=== PATIENT | female | born 1960 | race Caucasian/White ===

== ENCOUNTER 2022-03-05 09:29 | Outpatient (CLI) | payer MEDICARE, SELFPAY ==
--- NOTE | ~2022-03-05 | PE_ITS ---
EXAMINATION: PET skull to mid thigh DATE: 03/05/2022 11:40 INDICATION: Squamous cell carcinoma of the anus TECHNIQUE: Blood glucose level was 96 mg/dL. 8.421 mCi of 18-fluorodeoxyglucose (18-FDG) was administ ered i.v. Low dose computed tomography (CT) images were acquired from the base of the brain to the pr oximal thighs for attenuation correction and anatomic localization. Positron emission tomography (PET ) images were acquired in the same distribution beginning 77 minutes after injection. Images includin g fused PET/CT images were reconstructed in axial, coronal, and sagittal planes. Automated exposure c ontrol technique was employed. The dose-length product was 404.95mGy-cm. COMPARISON: None FINDINGS: Head/neck: There is symmetric increased activity in the oral cavity, parotid glands, laryngeal muscles and ocu lar muscles without CT correlate, likely physiologic. Atherosclerotic calcific lesions at the bilater al carotid bulbs. Likely benign 8 mm low density right thyroid nodule without FDG uptake. No patholog ically enlarged cervical lymphadenopathy or suspicious foci of increased FDG uptake in the visualized head or neck. Chest: Small bilateral posteriorly layering pleural effusions, right greater than left. No pneumonia or susp icious pulmonary nodules. Heart size is normal. Atherosclerotic coronary artery calcific location. No pericardial effusion. Thoracic aorta is normal in caliber. Bilateral breast implants. No pathologica lly enlarged or FDG avid thoracic lymphadenopathy. Abdomen/pelvis/proximal thighs: Physiologic renal accumulation and excretion of FDG activity in the kidneys, bladder and along portio ns of ureters. Normal degree and heterogenous pattern of increased uptake throughout the liver withou t radiologic correlate or dominant FDG avid lesion. The gallbladder, pancreas, spleen and bilateral a drenal glands are normal. Mild uptake scattered throughout the bowels without radiologic correlate, a lso likely physiologic. Moderately increased FDG uptake at the anus with maximal SUV of 7.6 consisten t with reported history of squamous cell carcinoma of the anus . There is calcified atherosclerosis o f the aorta and many of the other arteries. No other abnormal foci of increased FDG uptake or pathol ogically enlarged lymphadenopathy in the abdomen, pelvis or proximal thighs. Musculoskeletal: There is small amount of likely extravasated activity at the dorsum of the right hand the site of inj ection. Linear likely lymphatic uptake extending proximally along the right forearm and arm. No suspi cious lytic, blastic or FDG avid bone lesions. IMPRESSION: 1. Moderate FDG uptake at the anus consistent with given history of squamous cell carcinoma. No evide nt metastatic disease. 2. Nonspecific small bilateral pleural effusions, right greater than left. Reviewed, dictated and finalized at location B. IMPRESSION: 1. Moderate FDG uptake at the anus consistent with given history of squamous ce ll carcinoma. No evident metastatic disease. 2. Nonspecific small bilateral pleural effusions, right greater than left.
[2022-03-05 10:00] LABS: Glucose Point of Care 96 mg/dl (65-105)
== END 2022-03-05 09:30 | disposition home or self-care (01) ==
LOC: ANHIMG 09:35
PROVIDERS: PCP Internal Medicine; Visit Provider Internal Medicine
DX: C21.0 Malignant neoplasm of anus, unspecified (principal); J90 Pleural effusion, not elsewhere classified
CPT/HCPCS: 78815; A9552

== ENCOUNTER 2022-06-21 18:32 | Inpatient (IN) | payer MEDICARE, MEDICAID, SELFPAY ==
--- NOTE | ~2022-06-21 | XR_ITS ---
EXAMINATION: XR chest 1V portable DATE: 06/21/2022 19:22 INDICATION: Coronary atherosclerosis. Preop. TECHNIQUE: A single frontal view of the chest was obtained on 2 radiographs. COMPARISON: PET CT 03/05/2022 FINDINGS: The chest demonstrates clear lungs without pneumonia, pleural effusion, or pneumothorax. Th e heart size is normal. There is a right subclavian port with tip at superior cavoatrial junction. IMPRESSION: 1. No acute cardiopulmonary disease. Reviewed, dictated and finalized at location A.
--- NOTE | ~2022-06-21 | XR_ITS ---
EXAMINATION: XR surgery orthopedic DATE: 06/24/2022 10:25 INDICATION: Left hip fracture post intertrochanteric nailing TECHNIQUE: 4 fluoroscopic images of the left hip and proximal femur were obtained during procedure pe rformed by Dr. Cabrera. Radiologist was not present for the imaging or procedure. The amount of fluor oscopy time used during this procedure was 1.1 minutes. COMPARISON: 06/21/2022 FINDINGS: Alignment interval open reduction internal fixation of the previously seen intertrochanteri c fracture the proximal left femur with antegrade intramedullary kortney with femoral neck dynamic compre ssion screw and distal interlocking screw fixation. Alignment appears near anatomic with 1-2 cortical widths posterior displacement. No new fractures identified. Mild osteoarthritis at the left hip with mild anterosuperior nonuniform joint space narrowing. Vascular stenting at the left thigh likely dixie ng the proximal to mid left femoral artery. IMPRESSION: 1. Near-anatomic alignment post open reduction internal fixation of an intratrochanteric fracture of the proximal left femur. Reviewed, dictated and finalized at location A. IMPRESSION: 1. Near-anatomic alignment post open reduction internal fixation of an intratro chanteric fracture of the proximal left femur.
--- NOTE | ~2022-06-21 | XR_ITS ---
EXAMINATION: XR hip LT 2V w AP pelvis DATE: 06/21/2022 19:14 INDICATION: Left hip pain. Fall. TECHNIQUE: An anteroposterior view of the pelvis and 2 views of left hip were obtained. COMPARISON: None. FINDINGS: There is a comminuted intertrochanteric fracture of proximal left femur. The main distal fr acture fragment demonstrates 20 degrees varus attenuation, 11 mm posterior displacement, and 20 degre es posterior angulation. There is mild osteoarthritis of the hips. There are vascular stents in the l eft thigh. IMPRESSION: 1. Comminuted intertrochanteric fracture of proximal left femur. 2. Mild osteoarthritis of the hips. Reviewed, dictated and finalized at location A.
--- NOTE | ~2022-06-21 | CT_ITS ---
EXAMINATION: CT brain wo con DATE: 06/21/2022 19:20 INDICATION: Head injury. TECHNIQUE: Computed tomography (CT) of the head was performed without intravenous contrast. The mA wa s adjusted according to patient size. Iterative reconstruction technique was employed. The dose-lengt h product was 605.33 mGy-cm. COMPARISON: None FINDINGS: There is no intracranial hemorrhage, acute infarction, or abnormal intracranial mass lesion . The ventricles are normal in size. The orbits are normal. The paranasal sinuses are clear. The mast oid air cells are normal. IMPRESSION: 1. Normal brain. Reviewed, dictated and finalized at location A. IMPRESSION: 1. Normal brain.
[2022-06-21 18:31] VITALS: BP 176/65; PULSE 67; RESP 16; TEMP 37; O2SAT 100
--- NOTE | 2022-06-21 18:58 | ED.FALL ---
HPI - Fall General Chief Complaint: Fall Stated Complaint: GLF HIP PAIN Time Seen by Provider: 06/21/22 18:41 Source: patient and RN notes reviewed Mode of arrival: ambulatory Limitations: no limitations History of Present Illness HPI Narrative: 61 years old white female lives with her came by private carto the ED because of a fall while walking in her driveway walk. Landed on her left side, complaining of severe pain at the left hip. History of diabetes, hypertension, hyperlipidemia, coronary stents, left lower extremity stent, history of colon cancer last radiation therapy was 5 days ago. Tobacco use, no drinking or using drugs. Patient on aspirin and Plavix. Right chest port MD complaint: fall Fall from: standing Related Data Home Medications Medication Instructions Recorded Confirmed amlodipine 5 mg tablet 5 mg PO DAILY 04/19/22 aspirin 81 mg tablet,delayed 81 mg PO DAILY 04/19/22 release atorvastatin 40 mg tablet 40 mg PO DAILY 04/19/22 clopidogrel 75 mg tablet 75 mg PO DAILY 04/19/22 glimepiride 1 mg tablet 1 mg PO QAM 04/19/22 hydroxychloroquine 200 mg tablet 200 mg PO DAILY 04/19/22 insulin aspart U-100 100 unit/mL 5 unit subcut TID 04/19/22 (3 mL) subcutaneous pen (Novolog Flexpen U-100 Insulin aspart) insulin detemir U-100 100 unit/mL 10 unit subcut QHS 04/19/22 (3 mL) subcutaneous pen (Levemir FlexTouch U-100 Insulin) metoprolol tartrate 25 mg tablet 12.5 mg PO BID 04/19/22 omeprazole 20 mg capsule,delayed 20 mg PO DAILY 04/19/22 release Allergies Allergy/AdvReac Type Severity Reaction Status Date / Time Penicillins Allergy Intermediate hives Verified 04/19/22 09:01 Review of Systems Review of Systems: All systems reviewed & are unremarkable except as noted in HPI and below PMFSH Past Medical History Medical History Anxiety and depression Breast implant capsular contracture CAD (coronary artery disease) Essential hypertension PAD (peripheral artery disease) Rheumatoid arthritis Surgical History Surgical History H/O rotator cuff surgery History of cardiovascular surgery History of cryosurgery Family History Family History Father Old age Mother Alcohol abuse Other Diabetes mellitus Gout Social History Social History Smoking status: Current some day smoker Tobacco type: cigarettes Alcohol intake: never Substance use: never Substance use type: does not use Gender identity (if verbalized by the patient): Female Sexual Orientation (if Verbalized by the Patient): Straight or Heterosexual Exam Narrative: General appearance: Well-developed, well-nourished Skin: Normal color Head: Normocephalic, nontraumatic Eyes: Clear conjunctiva ENT: Oropharynx normal, ears normal, nose normal Neck: Supple, nontender Chest and respiratory: Airway patent, no respiratory distress, no accessory muscle use Heart: Regular rate/rhythm Abdomen: Soft, nontender, no organomegaly, quiet bowel sounds Vascular: Normal peripheral pulses, normal capillary refill. Musculoskeletal: Diffuse tenderness left hip, severe limited range of motion Neurologic: Alert and oriented ?3, [employer] is normal as tested, no gross motor deficit Course Consultations Consultation #1: Dr. Cabrera Date: 06/21/22 Time: 21:02 Vital Signs Vital signs: Vital Signs Temperature 37.0 C 06/21/22 18:31 Pulse Rate 67 06/21/22 18:31 Respiratory Rate 16 06/21/22 18:
--- NOTE | 2022-06-21 18:59 | ECG_ITS ---
Measurements Intervals [place] Rate: 66 P: 73 [place]: 136 QRS: -69 QRSD: 104 T: 252 QT: 416 QTc: 439 Interpretive Statements SINUS RHYTHM ATRIAL PREMATURE COMPLEX INCOMPLETE RIGHT BUNDLE BRANCH BLOCK LEFT ANTERIOR FASCICULAR BLO BORDERLINE ST-T WAVE ABNORMALITY- INF/LAT LEADS BASELINE ARTIFACT- III, AVR, AVL, AVF ABNORMAL ECG Electronically Signed On 06-21-2022 21:17:44 CDT by Nelson Solo D.O.
[2022-06-21] MEDS: ONDANSETRON INJ 4 MG/2 ML VIAL IV PUSH (19:25)
[2022-06-21] MEDS: MORPHINE SULFATE (*CRX) 4 MG/ML INJ IV PUSH ×2 (19:25→22:50)
[2022-06-21 19:54] LABS: Basophils Absolute Auto 0.1 K/mm3 (0.0-0.1); Basophils Percent Auto 0.9 % (0.2-1.2); Eosinophils Absolute Auto 0.1 K/mm3 (0-0.3); Eosinophils Percent Auto 0.9 % (0-4.4); Hematocrit 27.4 % (37.0-47.0); Hemoglobin 9.1 g/dL (12.0-15.0); Immature Granulocyte Absolute 0.04 K/mm3 (0.00-0.031); Immature Granulocyte Percent A 0.6 % (0-0.5); Lymphocytes Absolute Auto 0.41 K/mm3 (0.9-3.2); Lymphocytes Percent Auto 5.9 % (18.3-44.2); Mean Corpuscular HGB Conc 33.2 g/dl (32-36); Mean Corpuscular Hemoglobin 31.8 pg (26-34); Mean Corpuscular Volume 95.8 fl (80-100); Mean Platelet Volume 10.6 fl (7.4-10.4); Monocytes Absolute Auto 1.3 K/mm3 (0.1-0.6); Monocytes Percent Auto 18.8 % (2.6-8.5); Neutrophils Absolute Auto 5.1 K/mm3 (1.3-6.7); Neutrophils Percent Auto 72.9 % (45.5-73.1); Platelet Count Result 316 k/mm3 (150-375); Red Blood Count 2.86 M/mm3 (4.2-5.4); Red Cell Distribution Width 22.2 % (11.5-14.5); White Blood Count 6.9 K/mm3 (4.5-10.0)
[2022-06-21 20:05] LABS: Alanine Aminotransferase 20 U/L (6-35); Albumin Level 2.4 g/dL (3.5-5.1); Alkaline Phosphatase 125 U/L (38-126); Anion Gap 6 mmol/L (8-16); Aspartate Amino Transferase 26 U/L (14-36); Bilirubin,Total 0.2 mg/dL (0.2-1.3); Blood Urea Nitrogen 27 mg/dL (7-17); Calcium 7.4 mg/dL (8.4-10.2); Carbon Dioxide 25 mmol/L (22-30); Chloride 95 mmol/L (98-107); Estimated CRCL calculation 32 ml/min; Estimated Glomerular Filt Rate 38; Glucose 251 mg/dL (65-110); Potassium 2.9 mmol/L (3.4-5.0); Prothrombin Time 12.3 Seconds (11.1-14.7); Sodium 126 mmol/L (137-145)
[2022-06-21 20:06] LABS: Partial Thromboplastin Time 23.5 SECONDS (22.3-36.8)
[2022-06-21 20:26] LABS: Anisocytosis 3+ (NORMAL); Platelet Estimate Adequate (Adequate)
--- NOTE | 2022-06-21 20:27 | PM.IMHP ---
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 She has no known history of osteoporosis. She states she has had minor orthopedic procedures her feet and hands before. Stage II B anal carcinoma. Patient has completed radiation therapy 06/19/[address] Tang. She is undergoing chemotherapy last session [address] Ruiz. Apparently cancer is undetectable now. In the ED: Left hip x-ray shows communicated intratrochanteric fracture of proximal left femur. Patient is on be hypertensive systolic blood pressure 176/65. Hemoglobin 9.1, potassium low at 2.9 given 40 mEq potassium chloride. Her creatinine 1.4 which is her baseline. ER provider talked with Dr. Payne orthopedics for possible surgery tomorrow, make NPO midnight. Patient to be admitted inpatient for left hip fracture. Review of Systems Review of Systems: Constitutional: No Fever, No Chills, No Night Sweats, No Fatigue, No Malaise ENT/Mouth: No Hearing Changes, No Ear Pain, No Nasal Congestion, No Sinus Pain, No Hoarseness, No sore throat, No Rhinorrhea, No Swallowing Difficulty Eyes: No Eye Pain, No Redness, No Vision Changes Cardiovascular: No Chest Pain, No Palpitations, No Dyspnea on Exertion, No Orthopnea, No Claudication, No Edema Respiratory: No Cough, No Sputum, No Wheezing, No Shortness of Breath Gastrointestinal: No Nausea, No Vomiting, No Diarrhea, No Constipation, No Abdominal Pain, No Heartburn, No Hematochezia, No Melena Genitourinary: No Dysuria, No Urinary Frequency, No Hematuria, No Urinary Incontinence, No Urgency Musculoskeletal: Endorses left hip pain. Skin: No Skin Lesions, No Pruritis, No Hair Changes Neuro: No Weakness, No Numbness, No Paresthesias, No Loss of Consciousness, No Syncope, No Dizziness, No Headache Psych: No Anxiety/Panic, No Depression, No Insomnia Heme: No Bruising, No Bleeding Lymph: No Adenopathy Endocrine: No Polyuria, No Polydipsia, No Temperature Intolerance [facility] Past Medical History Medical History Anxiety and depression Breast implant capsular contracture CAD (coronary artery disease) Essential hypertension PAD (peripheral artery disease) Rheumatoid arthritis Surgical History Surgical History H/O rotator cuff surgery History of cardiovascular surgery History of cryosurgery Family History Family History Father Old age Mother Alcohol abuse Other Diabetes mellitus Gout Social History Social History Smoking status: Current some day smoker Tobacco type: cigarettes Alcohol intake: never Substance use: never Substance use type: does not use Gender identity (if verbalized by the patient): Female Sexual Orientation (if Verbalized by the Patient): Straight or Heterosexual Meds Home Medications and Allergies Home Medications Medication Instructions Recorded Confirmed Type amlodipine 5 mg tablet 5 mg PO DAILY 04/19/22 History aspirin 81 mg tablet,delayed 81 mg PO DAILY 04/19/22 History release atorvastatin 40 mg tablet 40 mg PO DAILY 04/19/22 History clopidogrel 75 mg tablet 75 mg PO DAILY 04/19/22 History glimepiride 1 mg tablet 1 mg PO QAM 04/19/22 History hydroxychloroquine 200 mg tablet 200 mg PO DAILY 04/19/22 History insulin aspart U-100 100 unit/mL 5 unit subcut TID 04/19/22 History (3 mL) subcutaneous pen (Novolog Flexpen U-100 Insulin aspart)
[2022-06-21 20:31] LABS: SARS-CoV-2 RNA PCR Negative
[2022-06-21] MEDS: SODIUM CHLORIDE 0.9% IV 1,000 ML 999 ML IV CONT (20:41)
[2022-06-21] MEDS: POTASSIUM CHLORIDE 20 MEQ PACKET (FOR LIQUID) 40 MEQ PO (20:41)
--- NOTE | 2022-06-21 22:15 | ADMGEN ---
This patient, Janice Rodgers, was admitted to Medical Room 255-. Patient/family oriented to hospital policies and general routines including ID bracelet, bed and alarms, visiting hours, pain management, procedures, bathroom and other care routines, personal items, smoking policy, room service/diet, and visiting hours. Information on how to activate the Rapid Response Team has been discussed. Patient/Family are encouraged to report perceived risks to care and to ask questions if they do not understand what they are told or what they should do.
[2022-06-21] MEDS: SODIUM CHLORIDE 0.9% IV 1,000 ML 100 ML IV CONT (22:22)
[2022-06-21] MEDS: POTASSIUM CHLORIDE INJ 40 MEQ in SODIUM CHLORIDE 0.9% IV 500 ML 130 MEQ IVPB (22:22)
[2022-06-21 23:25] VITALS: BP 161/48; PULSE 68; RESP 21; TEMP 36.4; O2SAT 100
[2022-06-21 23:26] VITALS: BMI 17.6
[2022-06-22] VITALS (25 sets, daily range): BP systolic 160–200; BP diastolic 57–88; PULSE 68–81; RESP 12–20; TEMP 36.2–37; O2SAT 97–100
[2022-06-22] MEDS: METOPROLOL TARTRATE 12.5 MG TABLET PO ×3 (00:13→16:54)
[2022-06-22] MEDS: MORPHINE SULFATE (*CRX) 4 MG/ML INJ IV PUSH ×3 (02:23→21:17)
[2022-06-22 05:29] LABS: Basophils Absolute Auto 0.1 K/mm3 (0.0-0.1); Basophils Percent Auto 0.6 % (0.2-1.2); Eosinophils Absolute Auto 0.1 K/mm3 (0-0.3); Hematocrit 25.8 % (37.0-47.0); Hemoglobin 8.6 g/dL (12.0-15.0); Immature Granulocyte Absolute 0.06 K/mm3 (0.00-0.031); Immature Granulocyte Percent A 0.6 % (0-0.5); Lymphocytes Absolute Auto 0.32 K/mm3 (0.9-3.2); Mean Corpuscular HGB Conc 33.3 g/dl (32-36); Mean Corpuscular Volume 95.9 fl (80-100); Mean Platelet Volume 10.5 fl (7.4-10.4); Monocytes Absolute Auto 1.2 K/mm3 (0.1-0.6); Monocytes Percent Auto 11.1 % (2.6-8.5); Neutrophils Absolute Auto 8.9 K/mm3 (1.3-6.7); Neutrophils Percent Auto 83.7 % (45.5-73.1); Platelet Count Result 306 k/mm3 (150-375); Red Blood Count 2.69 M/mm3 (4.2-5.4); Red Cell Distribution Width 22.5 % (11.5-14.5); White Blood Count 10.7 K/mm3 (4.5-10.0)
[2022-06-22 05:37] LABS: Anion Gap 0 mmol/L (8-16); Blood Urea Nitrogen 23 mg/dL (7-17); Calcium 6.7 mg/dL (8.4-10.2); Carbon Dioxide 26 mmol/L (22-30); Chloride 103 mmol/L (98-107); Estimated CRCL calculation 34 ml/min; Estimated Glomerular Filt Rate 46; Glucose 278 mg/dL (65-110); Sodium 129 mmol/L (137-145)
[2022-06-22 05:42] LABS: Hemoglobin A1C 8.8 % (<5.7)
--- NOTE | 2022-06-22 05:58 | WPDANESEPP ---
Anes - Eval Pre Procedure Date/Time: 06/22/22 05:58 Pre Op Diagnosis: left hip fracture, hypokalemia, hyponatremia,anemi Patient Data Age: 61 Gender: F Height: 1.68 m Weight: 49.4 kg Last Vital Signs Temp 36.4 C L 06/21/22 23:25 Pulse 72 06/22/22 04:00 Resp 21 H 06/21/22 23:25 BP 161/48 H 06/21/22 23:25 Pulse Ox 100 06/21/22 23:25 O2 Del Method Room Air 06/21/22 23:25 Allergies Allergy/AdvReac Type Severity Reaction Status Date / Time Penicillins Allergy Intermediate hives Verified 06/21/22 22:26 Home Medications Medication Instructions Recorded Confirmed Type amlodipine 5 mg tablet 5 mg PO DAILY 04/19/22 06/21/22 History aspirin 81 mg tablet,delayed 81 mg PO DAILY 04/19/22 06/21/22 History release atorvastatin 40 mg tablet 40 mg PO DAILY 04/19/22 06/21/22 History clopidogrel 75 mg tablet 75 mg PO DAILY 04/19/22 06/21/22 History hydroxychloroquine 200 mg tablet 200 mg PO BID 04/19/22 06/21/22 History insulin aspart U-100 100 unit/mL 5 unit subcut TID 04/19/22 06/21/22 History (3 mL) subcutaneous pen (Novolog Flexpen U-100 Insulin aspart) insulin detemir U-100 100 unit/mL 10 unit subcut QHS 04/19/22 06/21/22 History (3 mL) subcutaneous pen (Levemir FlexTouch U-100 Insulin) metoprolol tartrate 25 mg tablet 12.5 mg PO BID 04/19/22 06/21/22 History omeprazole 20 mg capsule,delayed 20 mg PO DAILY 04/19/22 06/21/22 History release valacyclovir 500 mg tablet 500 mg PO DAILY #90 tabs 04/26/22 06/21/22 Rx Laboratory Tests 06/21/22 06/21/22 06/21/22 19:29 19:29 19:29 WBC 6.9 K/mm3 K/mm3 (4.5-10.0) RBC 2.86 M/mm3 L M/mm3 (4.2-5.4) Hgb 9.1 g/dL L g/dL (12.0-15.0) Hct 27.4 % L % (37.0-47.0) MCV 95.8 fl fl (80-100) MCH 31.8 pg pg (26-34) MCHC 33.2 g/dl g/dl (32-36) RDW 22.2 % H % (11.5-14.5) Plt Count 316 k/mm3 k/mm3 (150-375) MPV 10.6 fl H fl (7.4-10.4) Immature Gran % (Auto) 0.6 % H % (0-0.5) Neut % (Auto) 72.9 % % (45.5-73.1) Lymph % (Auto) 5.9 % L % (18.3-44.2) [place] % (Auto) 18.8 % H % (2.6-8.5) Eos % (Auto) 0.9 % % (0-4.4) Baso % (Auto) 0.9 % % (0.2-1.2) Lymph # (Auto) 0.41 K/mm3 L K/mm3 (0.9-3.2) [place] # (Auto) 1.3 K/mm3 H K/mm3 (0.1-0.6) Eos # (Auto) 0.1 K/mm3 K/mm3 (0-0.3) Baso # (Auto) 0.1 K/mm3 K/mm3 (0.0-0.1) Abs Immat Gran (auto) 0.04 K/mm3 H K/mm3 (0.00-0.031) Absolute Neuts (auto) 5.1 K/mm3 K/mm3 (1.3-6.7) Absolute Nucleated RBC 0.0 K/mm3 K/mm3 (0.0-0.012) Nucleated RBC % 0.0 % % (0.0-0.2) Platelet Estimate Adequate (Adequate) Anisocytosis 3+ (NORMAL) PT 12.3 Seconds Seconds (11.1-14.7) INR 1.0 APTT 23.5 SECONDS SECONDS (22.3-36.8) Sodium 126 mmol/L L mmol/L (137-145) Potassium 2.9 mmol/L L mmol/L (3.4-5.0) Chloride 95 mmol/L L mmol/L (98-107) Carbon Dioxide 25 mmol/L mmol/L (22-30) Anion Gap 6 mmol/L L mmol/L (8-16) BUN 27 mg/dL H mg/dL (7-17) Creatinine 1.40 mg/dL H mg/dL (0.7-1.0) Estim Creat Clear Calc 32 ml/min ml/min Estimated GFR 38 L (59 - ) Glucose 251 mg/dL H mg/dL (65-110) Hemoglobin A1c Calcium 7.4 mg/dL L mg/dL (8.4-10.2) Total Bilirubin 0.2 mg/dL mg/dL (0.2-1.3) AST 26 U/L U/L (14-36) ALT 20 U/L U/L (6-35) Alkaline Phosphatase 125 U/L U/L (38-126) Total Protein 6.0 g/dL L g/dL (6.3-8.2) Albumin 2.4 g/dL L g/dL (3.5-5.1) SARS-CoV-2 RNA (RT-PCR) 06/21/22 06/22/22 06/22/22 19:30 05:14 05:14 WBC RBC Hgb Hct MCV MCH
[2022-06-22] MEDS: ONDANSETRON INJ 4 MG/2 ML VIAL IV PUSH (06:24)
[2022-06-22 06:33] LABS: Anisocytosis 1+ (NORMAL); Platelet Estimate Adequate (Adequate)
[2022-06-22 07:40] LABS: Glucose Point of Care 428 mg/dl (65-105)
[2022-06-22 08:02] LABS: Glucose Point of Care 429 mg/dl (65-105)
--- NOTE | 2022-06-22 08:20 | PM.IMPN ---
Progress Note: A&P Assessment and Plan (1) Closed fracture of left hip: Code(s): S72.002A - Fracture of unspecified part of neck of left femur, initial encounter for closed fracture Status: Acute Assessment and Plan: -consulted Dr. Payne, orthopedics -Anesthesiology deferring operation to optimize HCT, blood glucose, hyponatremia.? -perioperative antibiotics, DVT prophylaxis as per orthopedics team -pain control:? Tylenol, [place], morphine -bowel regimen: Col[place] (2) Type 1 diabetes mellitus: Code(s): E10.9 - Type 1 diabetes mellitus without complications Status: Acute Assessment and Plan: Patient's glucose 428 this AM. Patient appears quite dry, but is AO. CMP shows AG 0, CO2 26. - ABG showed pH 7.387, pCO2 33.8, HCO3 19.9, AG 4 - UA showed 1+ ketones, 3+ glucose. - Serum beta hydroxybutyrate ordered, pending. - 1L NS IVF bolus w/ 5U sq aspart -> 370. Add'l 1L NS + 5U sq aspart given. - started patient on 20meqK in .45NS/D5W at 100mL/ hr. - K stable at 3.6, continue to monitor. - Repeat labs to continue monitoring above. Diabetic diet, resume home long acting, 12U QHS, MDSS insulin with meals, accuchecks (3) Acute hypokalemia: Code(s): E87.6 - Hypokalemia Status: Acute Assessment and Plan: K currently 3.6. -Repeat BMP this morning after 2L IV Fluids. Treating patient for hyperglycemia and will replenish K as appropriate. (4) Anemia: Code(s): D64.9 - Anemia, unspecified Status: Acute Assessment and Plan: Hgb 8.6/ Hct 25.8. Patient suboptimal for surgical repair of the left hip. Surgery is requesting Hct of 30 prior to OR Transfuse 1 unit PRBCs. Repeat H& H after transfusion. (5) Acute hyponatremia: Code(s): E87.1 - Hypo-osmolality and hyponatremia Status: Acute Assessment and Plan: Sodium 129/134 corrected for hyperglycemia 1L NS fluid bolus this AM w/ repeat BMP afterwards. Will adjust sodium accordingly. (6) CKD (chronic kidney disease): Code(s): N18.9 - Chronic kidney disease, unspecified Status: Acute Assessment and Plan: BUN/Cr 23/1.2 this AM, improved from yesterday. This does appear to be baseline for this patient. 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 Tang. Last chemo [address] Ruiz. Cancer care is [place]. Stable. Will continue to monitor. Plan # other chronic conditions- will resume home meds once reconciled -rheumatoid arthritis: Plaquenil -CAD, PAD, HLD: On aspirin and Plavix, history of 2 coronary stents and 2 left lower extremity stent -essential hypertension: On metoprolol and amlodipine -anxiety/depression: Prozac -CKD stage 3: Cr 1.4, at baseline Subjective Date/time seen: 06/22/22 08:20 Patient was AOx3. Denied chest pain, shortness of breath, fevers, chills, nausea, vomiting. was in the room as well, and provided additional history on this patient which was consistant with the H&P. 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 We all discussed plan going forward to stabilize HCT, Sodium, and glucose prior to OR. Review of Systems Review of Systems: All systems reviewed & are unremarkable except as noted in HPI and below Exam Narrative: GENERAL APPEARANCE: Alert and oriented x 3, in no apparent distress. Patient does appear quite dry. HEENT: PERRL, EOMI. Sclerae anicteric. dry mucous membranes. NECK: Supple. No JVD or obvious carotid bruits. RESPIRATORY: Respirations are nonlabored. Breath sounds are equal and clear bilaterally. No wheezes, Rhonchi, or rales. CARDIOVASCULAR: Regular rate and rhythm with normal S1-S2. No murmurs, gallops, or rubs. GASTROINTESTINAL: Soft, flat, and benign. No mass, tenderness, guardin
--- NOTE | 2022-06-22 08:34 | PM.CNOR ---
Assessment and Plan Assessment and plan (1) Closed fracture of left hip: Qualifiers: Encounter type: initial encounter Qualified Code(s): S72.002A - Fracture of unspecified part of neck of left femur, initial encounter for closed fracture Code(s): S72.002A - Fracture of unspecified part of neck of left femur, initial encounter for closed fracture Status: Acute Assessment and Plan: Left hip intertrochanteric fracture. Patient with diabetes, anemia, hyponatremia and hypokalemia, cancer, renal insufficiency. Discussed operative and non operative treatment options with the patient. Risks, benefits and alternatives discussed in detail. Her questions were answered. She would like to proceed with surgery for the hip. She will need medical optimization prior to proceeding. Plan for left hip trochanteric nail when stable. History of Present Illness HPI Consult date: 06/22/22 Requesting physician: Estrellita Dooley MD Chief complaint: left hip fracture, hypokalemia, hyponatremia,anemi Narrative: 61-year-old woman with multiple medical problems fell at home yesterday onto the left side. Sustained left hip fracture. Admitted through the emergency room. Denies loss of consciousness or head neck injury. Complains of left hip pain. Comfortable while at rest in bed. Denies numbness or tingling. Review of Systems Constitutional: Constitutional: Denies fever(s) Eyes: Eyes: Denies blurry vision ENT: Reports Normal hearing present Cardiovascular: Cardiovascular: Denies chest pain and Denies dyspnea Respiratory: Respiratory: Denies dyspnea and Denies wheezing Gastrointestinal: Gastrointestinal: Denies abdominal pain Genitourinary: Genitourinary: Denies urinary urgency Musculoskeletal: Musculoskeletal: Reports as per HPI and Denies numbness Integumentary/Breasts: Skin/Breast: Denies changing lesions and Denies sores Neurologic: Reports Normal hearing present, Denies behavioral changes, Denies confusion, Denies numbness and Denies convulsions Psychiatric: Psychiatric: Denies behavioral changes, Denies confusion and Denies hallucinations Endocrine: Endocrine: Denies heat intolerance Hematologic/Lymphatic: Hematologic/Lymphatic: Denies easy bleeding Allergic/Immunologic: Allergic/Immunologic: Denies wheezing PMFSH Past Medical History Medical History (Updated 06/22/22 @ 08:25 by Padmaja Smith PA-C) Anxiety and depression Breast implant capsular contracture CAD (coronary artery disease) Essential hypertension GERD (gastroesophageal reflux disease) HLD (hyperlipidemia) Hypertension Old myocardial infarction, greater than 8 weeks stents PAD (peripheral artery disease) Rheumatoid arthritis Surgical History Surgical History H/O rotator cuff surgery History of cardiovascular surgery History of cryosurgery Family History Family History Father Old age Mother Alcohol abuse Other Diabetes mellitus Gout Social History Social History Smoking packs per day: 1 Smoking cigarettes per day: 20.0 Years smoked: 50 Smoking pack-years: 50.00 Smoking status: Current every day smoker Tobacco type: cigarettes Alcohol intake: never Substance use: never Substance use type: does not use Gender identity (if verbalized by the patient): Female Sexual Orientation (if Verbalized by the Patient): Straight or Heterosexual Spiritual care concerns: No Meds Home Medications and Allergies Home Medications Medication Instructions Recorded Confirmed Type amlodipine 5 mg tablet 5 mg PO DAILY 04/19/22 06/21/22 History aspirin 81 mg tablet,delayed 81 mg PO DAILY 04/19/22 06/21/22 History release atorvastatin 40 mg tablet 40 mg PO DAILY 04/19/22 06/21/22 History clopidogrel 75 mg tablet 75 mg PO D
[2022-06-22 08:46] LABS: Sodium Urine Random 14 meq/L
[2022-06-22] MEDS: valACYclovir HCL 500 MG TABLET PO (08:51)
[2022-06-22] MEDS: ATORVASTATIN 40 MG TABLET PO (08:51)
[2022-06-22] MEDS: POTASSIUM CHLORIDE 20 MEQ TABLET.ER 40 MEQ PO ×2 (08:51→16:53)
[2022-06-22] MEDS: PANTOPRAZOLE 40 MG TABLET PO (08:51)
[2022-06-22] MEDS: HYDROXYCHLOROQUINE SULFATE 200 MG TABLET PO ×2 (08:51→16:53)
[2022-06-22] MEDS: DOCUSATE SODIUM 100 MG CAPSULE PO ×2 (08:51→16:53)
[2022-06-22] MEDS: amLODIPine BESYLATE 5 MG TABLET PO (08:51)
[2022-06-22] MEDS: SODIUM CHLORIDE 0.9% IV 1,000 ML 999 ML IV CONT ×2 (08:52→11:59)
[2022-06-22] MEDS: INSULIN ASPART (*BKC) 100 UNITS/ML SUB-Q ×2 (08:52→12:05)
[2022-06-22 10:15] LABS: Glucose Point of Care 370 mg/dl (65-105)
[2022-06-22 10:16] LABS: Anion Gap 4 mmol/L (8-16); Blood Urea Nitrogen 23 mg/dL (7-17); Calcium 6.7 mg/dL (8.4-10.2); Carbon Dioxide 22 mmol/L (22-30); Chloride 103 mmol/L (98-107); Estimated CRCL calculation 37 ml/min; Estimated Glomerular Filt Rate 50; Glucose 406 mg/dL (65-110); Potassium 3.9 mmol/L (3.4-5.0); Sodium 129 mmol/L (137-145)
[2022-06-22 10:20] LABS: Alveolar/Arterial O2 Gradient 10.6 mmHg; Base Excess ABG -4.5 mEq/l (+/-2.0); Fractional Inspired Oxygen 21 %; HCO3 ABG 19.9 mEq/l (22.0-26.0); Oxygen Saturation ABG 97.5 % (95.0-100.0); Oxyhemoglobin 95.8 % THb (90.0-100.0); PCO2 ABG 33.8 mmHg (35.0-45.0); PO2 ABG 98.7 mmHg (80.0-100.0); Total Hemoglobin 9.5 g/dL (12.0-18.0); pH ABG 7.387 (7.350-7.450)
[2022-06-22 10:20] LABS: Beta-Hydroxybutyrate/Acetoacetate 2.22 mmol/L (0.02-0.27)
[2022-06-22 10:21] LABS: Device ROOM AIR; Modified Allen's Test Pass; Site Drawn LEFT RADIAL
[2022-06-22 11:33] LABS: Glucose Point of Care 285 mg/dl (65-105)
[2022-06-22 11:37] LABS: Appearance Urine Clear (Clear); Bilirubin Urine Negative (Negative); Blood Urine 1+ (Negative); Color Urine Yellow (Yellow); Glucose Urine UA 3+ mg/dL (Negative); Ketones Urine 1+ mg/dL (Negative); Leukocyte Esterase Ur Negative LEU/UL (Negative); Nitrate Urine Negative (Negative); Protein Urine 3+ mg/dL (Negative); Urobilinogen Urine 0.2 mg/dL (<2.0); pH Urine 5.5 (5.0-9.0)
[2022-06-22 11:48] LABS: Bacteria Urine Trace /hpf; Mucus Urine Rare /lpf; WBC Clumps Urine Present /HPF; WBC Urine 21-30 /hpf
[2022-06-22 11:53] LABS: Add Urine Microscopic? YES
[2022-06-22] MEDS: HYDROcodone/acetaminophen (*CRX) 5-325 MG TABLET 1 TAB PO ×2 (12:03→16:57)
[2022-06-22 12:05] LABS: Potassium 3.8 mmol/L (3.4-5.0)
[2022-06-22 13:46] LABS: Anion Gap 3 mmol/L (8-16); Blood Urea Nitrogen 22 mg/dL (7-17); Calcium 6.6 mg/dL (8.4-10.2); Carbon Dioxide 21 mmol/L (22-30); Chloride 107 mmol/L (98-107); Estimated CRCL calculation 41 ml/min; Estimated Glomerular Filt Rate 56; Glucose 200 mg/dL (65-110); Potassium 3.6 mmol/L (3.4-5.0); Sodium 131 mmol/L (137-145)
[2022-06-22 16:04] LABS: Alanine Aminotransferase 17 U/L (6-35); Albumin Level 2.3 g/dL (3.5-5.1); Alkaline Phosphatase 135 U/L (38-126); Anion Gap 1 mmol/L (8-16); Aspartate Amino Transferase 23 U/L (14-36); Bilirubin,Total 0.3 mg/dL (0.2-1.3); Blood Urea Nitrogen 20 mg/dL (7-17); Calcium 6.7 mg/dL (8.4-10.2); Carbon Dioxide 25 mmol/L (22-30); Chloride 107 mmol/L (98-107); Estimated CRCL calculation 41 ml/min; Estimated Glomerular Filt Rate 56; Glucose 129 mg/dL (65-110); Potassium 3.6 mmol/L (3.4-5.0); Sodium 133 mmol/L (137-145)
[2022-06-22 16:18] LABS: Fractional Inspired Oxygen 21 %; PO2 VBG 50.1 mmHg (35.0-45.0)
[2022-06-22 16:23] LABS: pH VBG 7.449 (7.300-7.400)
[2022-06-22 16:24] LABS: Device ROOM AIR
[2022-06-22 16:27] LABS: Glucose Point of Care 117 mg/dl (65-105)
[2022-06-22] MEDS: KCL 20 MEQ/0.45% NS 1,000 ML 100 ML IV CONT (16:58)
[2022-06-22] MEDS: PROCHLORPERAZINE MALEATE 5 MG TABLET 10 MG BY MOUTH ×2 (17:04→23:51)
[2022-06-22] MEDS: METOPROLOL TARTRATE 25 MG TABLET PO (21:18)
[2022-06-22] MEDS: INSULIN GLARGINE (*BKC) 100 UNITS/ML 12 UNITS SUB-Q (21:25)
[2022-06-22 22:24] LABS: Glucose Point of Care 236 mg/dl (65-105)
[2022-06-22] MEDS: hydrALAZINE HCL 20 MG/ML VIAL 10 MG IV PUSH (23:58)
[2022-06-23] VITALS (12 sets, daily range): BP systolic 151–190; BP diastolic 66–88; PULSE 70–88; RESP 12–17; TEMP 36.2–37.2; O2SAT 96–100
[2022-06-23] MEDS: ONDANSETRON INJ 4 MG/2 ML VIAL IV PUSH (02:32)
[2022-06-23] MEDS: PROCHLORPERAZINE MALEATE 5 MG TABLET 10 MG BY MOUTH ×4 (05:41→23:54)
--- NOTE | 2022-06-23 06:47 | PM.IMPN ---
Progress Note: A&P Assessment and Plan (1) Closed fracture of left hip: Code(s): S72.002A - Fracture of unspecified part of neck of left femur, initial encounter for closed fracture Status: Acute Assessment and Plan: 06/[address] Payne, orthopedics -Anesthesiology deferring operation to optimize HCT, blood glucose, hyponatremia. -perioperative antibiotics, DVT prophylaxis as per orthopedics team -pain control:? Tylenol, [place], morphine -bowel regimen: Colace 06/23- Patient has been medically stabilized. Hgb/Hct 11.4/34.1; Sodium 136; Glucose 133. Orthopedics will proceed with repair tomorrow. NPO at midnight. (2) Type 1 diabetes mellitus: Code(s): E10.9 - Type 1 diabetes mellitus without complications Status: Acute Assessment and Plan: 06/22? - Glucose>400. Patient appears quite dry, but is AO. CMP shows AG 0, CO2 26. - ABG showed pH 7.387, pCO2 33.8, HCO3 19.9, AG 4. UA showed 1+ ketones, 3+ glucose, Serum beta hydroxybutyrate 2.22 - 1L NS IVF bolus w/ 5U sq aspart -> 370. Add'l 1L NS + 5U sq aspart given. - started patient on 20meqK in .45NS/D5W at 100mL/ hr. - K stable at 3.6, continue to monitor. - Repeat labs to continue monitoring above. - Diabetic diet, resume home long acting 12U QHS, MDSS insulin with meals, accuchecks 06/23 - Patient hypoglycemic this AM, following protocol, improved now 133. - Will split lantus dosing to BID, patient appears to be brittle. - Continue to monitor and manage as above. (3) Acute hypokalemia: Code(s): E87.6 - Hypokalemia Status: Acute Assessment and Plan: 4.0 Continue to monitor with AM labs. (4) Anemia: Code(s): D64.9 - Anemia, unspecified Status: Acute Assessment and Plan: 06/22 Patient suboptimal for surgical repair of the left hip. Surgery is requesting Hct of 30 prior to OR Transfuse 2 unit PRBCs. Repeat H& H after transfusion. 06/23 Hgb/Hct 11.4/34.1 today after 2 units PRBCs. Hemodynamically stable. Will continue to monitor. (5) Acute hyponatremia: Code(s): E87.1 - Hypo-osmolality and hyponatremia Status: Acute Assessment and Plan: Sodium 129/134 corrected for hyperglycemia 1L NS fluid bolus this AM w/ repeat BMP afterwards. Will adjust sodium accordingly. (6) CKD (chronic kidney disease): Code(s): N18.9 - Chronic kidney disease, unspecified Status: Acute Assessment and Plan: BUN/Cr 20/1.2 this AM, improved from yesterday. This does appear to be baseline for this patient. 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 Tang. Last chemo [address] Ruiz. Cancer care is in [place]. Stable. Will continue to monitor. Plan # other chronic conditions -rheumatoid arthritis: Plaquenil -CAD, PAD, HLD: On aspirin and Plavix, history of 2 coronary stents and 2 left lower extremity stent -essential hypertension: On metoprolol and amlodipine -anxiety/depression: Prozac -CKD stage 3: Cr 1.4, at baseline Subjective Date/time seen: 06/23/22 06:47 Patient is feeling much better today. She still has some hip pain. She has no chest pain, shortness of breath, abdominal pain. She has some diarrhea, which is from her radiation therapy, per spouse's report. She does take daily immodium to help prevent this and we will add to her regimen. Patient is also a brittle diabetic. Her assistant professor of religion has her lantus split into two daily doses, which we will also do beginning this evening. Discussed likely surgery tomorrow, patient is in agreement. Review of Systems Review of Systems: All systems reviewed & are unremarkable except as noted in HPI and below Exam Narrative: GENERAL APPEARANCE: Alert and oriented x 3, in no apparent
[2022-06-23 07:55] LABS: Basophils Percent Auto 0.4 % (0.2-1.2); Eosinophils Percent Auto 0.3 % (0-4.4); Hematocrit 34.1 % (37.0-47.0); Hemoglobin 11.4 g/dL (12.0-15.0); Immature Granulocyte Absolute 0.05 K/mm3 (0.00-0.031); Immature Granulocyte Percent A 0.5 % (0-0.5); Lymphocytes Absolute Auto 0.29 K/mm3 (0.9-3.2); Lymphocytes Percent Auto 3.2 % (18.3-44.2); Mean Corpuscular HGB Conc 33.4 g/dl (32-36); Mean Corpuscular Hemoglobin 31.1 pg (26-34); Mean Corpuscular Volume 93.2 fl (80-100); Mean Platelet Volume 9.3 fl (7.4-10.4); Monocytes Absolute Auto 1.3 K/mm3 (0.1-0.6); Monocytes Percent Auto 14.4 % (2.6-8.5); Neutrophils Absolute Auto 7.4 K/mm3 (1.3-6.7); Neutrophils Percent Auto 81.2 % (45.5-73.1); Platelet Count Result 266 k/mm3 (150-375); Red Blood Count 3.66 M/mm3 (4.2-5.4); Red Cell Distribution Width 21.4 % (11.5-14.5); White Blood Count 9.2 K/mm3 (4.5-10.0)
[2022-06-23] MEDS: DEXTROSE 50% 25 GM/50 ML SYRINGE IV PUSH (08:07)
[2022-06-23 08:08] LABS: Alanine Aminotransferase 14 U/L (6-35); Albumin Level 2.2 g/dL (3.5-5.1); Alkaline Phosphatase 128 U/L (38-126); Anion Gap 4 mmol/L (8-16); Aspartate Amino Transferase 29 U/L (14-36); Bilirubin,Total 0.1 mg/dL (0.2-1.3); Blood Urea Nitrogen 18 mg/dL (7-17); Calcium 7.1 mg/dL (8.4-10.2); Carbon Dioxide 22 mmol/L (22-30); Chloride 110 mmol/L (98-107); Estimated CRCL calculation 41 ml/min; Estimated Glomerular Filt Rate 56; Glucose 41 mg/dL (65-110); Sodium 136 mmol/L (137-145)
[2022-06-23 08:26] LABS: Platelet Estimate Adequate (Adequate)
[2022-06-23 08:27] LABS: Poikilocytosis 1+ (NORMAL)
[2022-06-23] MEDS: DOCUSATE SODIUM 100 MG CAPSULE PO (08:29)
[2022-06-23] MEDS: METOPROLOL TARTRATE 25 MG TABLET PO ×2 (08:29→20:15)
[2022-06-23] MEDS: POTASSIUM CHLORIDE 20 MEQ TABLET.ER 40 MEQ PO ×2 (08:29→18:01)
[2022-06-23] MEDS: valACYclovir HCL 500 MG TABLET PO (08:29)
[2022-06-23] MEDS: PANTOPRAZOLE 40 MG TABLET PO (08:29)
[2022-06-23] MEDS: HYDROXYCHLOROQUINE SULFATE 200 MG TABLET PO ×2 (08:29→18:01)
[2022-06-23] MEDS: ATORVASTATIN 40 MG TABLET PO (08:29)
[2022-06-23] MEDS: METOPROLOL TARTRATE 12.5 MG TABLET PO ×2 (08:29→20:15)
[2022-06-23] MEDS: amLODIPine BESYLATE 5 MG TABLET PO (08:29)
[2022-06-23 08:37] LABS: Glucose Point of Care 42 mg/dl (65-105)
[2022-06-23 08:37] LABS: Glucose Point of Care 42 mg/dl (65-105)
[2022-06-23 08:37] LABS: Glucose Point of Care 125 mg/dl (65-105)
[2022-06-23] MEDS: MEGESTROL ACETATE (*CHEMO) 20 MG TABLET PO (08:53)
[2022-06-23 09:08] LABS: Glucose Point of Care 133 mg/dl (65-105)
[2022-06-23 10:06] LABS: Glucose Point of Care 155 mg/dl (65-105)
[2022-06-23 11:53] LABS: Glucose Point of Care 164 mg/dl (65-105)
[2022-06-23] MEDS: LOPERAMIDE HCL 2 MG CAPSULE 4 MG PO ×3 (12:03→23:53)
[2022-06-23] MEDS: HYDROcodone/acetaminophen (*CRX) 5-325 MG TABLET 1 TAB PO ×3 (12:03→23:52)
--- NOTE | 2022-06-23 14:34 | PM.PNORT ---
Progress Note: A&P Assessment and Plan (1) Closed fracture of left hip: Code(s): S72.002A - Fracture of unspecified part of neck of left femur, initial encounter for closed fracture Status: Acute Assessment and Plan: Left hip intertrochanteric fracture. Medically improved for surgery. Discussed nonoperative and operative treatment options with the patient. Risks and benefits of each as well as alternatives were reviewed. All of the patient's questions were answered. The risks of surgery reviewed including but not limited to: Neurovascular damage, wound complication, infection, blood clot, pulmonary embolus, stroke, myocardial infarction, and anesthetic risks up to and including . Continued pain and possible dysfunction were explained. Specific risks of the procedure including later recurrence of deformity. No guarantees were offered. If hardware used, discussed risk of failure/ breakage and possible need for removal. If complications occur, the patient understands the need for further treatment, possible further surgery. Patient verbalizes understanding and wishes to proceed. PLAN: Left hip trochanteric nail. Subjective Subjective Date/Time Seen: 06/23/22 14:34 Principal diagnosis: Left hip intertrochanteric fracture Interval history: left hip fracture. Surgery delayed yesterday due to medically unstable with hyperglycemia, hypokalemia and hyponatremia. Improving today. Patient awake and alert. Pain with motion. Better at rest. Review of Systems Constitutional: Constitutional: Denies fever(s) Eyes: Eyes: Denies blurry vision ENT: Reports Normal hearing present Cardiovascular: Cardiovascular: Denies chest pain and Denies dyspnea Respiratory: Respiratory: Denies dyspnea and Denies wheezing Gastrointestinal: Gastrointestinal: Denies abdominal pain Genitourinary: Genitourinary: Denies urinary urgency Musculoskeletal: Musculoskeletal: Reports as per HPI and Denies numbness Integumentary/Breasts: Skin/Breast: Denies changing lesions and Denies sores Neurologic: Reports Normal hearing present, Denies behavioral changes, Denies confusion, Denies numbness and Denies convulsions Psychiatric: Psychiatric: Denies behavioral changes, Denies confusion and Denies hallucinations Endocrine: Endocrine: Denies heat intolerance Hematologic/Lymphatic: Hematologic/Lymphatic: Denies easy bleeding Allergic/Immunologic: Allergic/Immunologic: Denies wheezing Exam Const: General: No confusion Orientation/consciousness: No confusion HENMT: Head: normal to inspection, normocephalic and atraumatic Eyes: Conjunctivae: conjunctivae normal Sclera: sclerae normal Neck: Neck: supple and nontender Chest: Chest palpation & inspection: normal inspection of the chest Resp: Effort & Inspection: normal respiratory effort and no audible wheezes Cardio: Rate: regular rate Rhythm: regular rhythm : General: Yes deferred Skin: General skin exam: no rashes or lesions noted Neuro: General: No confusion Cranial nerves: Yes Normal hearing present Extrem: General: capillary refill normal Right upper extremity: normal to inspection Left upper extremity: normal to inspection Right lower extremity: normal to inspection, hip/thigh Details: normal to inspection and normal ROM; no tenderness and no swelling, knee Details: no tenderness and no swelling, ankle Details: normal ROM (Able to flex and extend the ankle) and foot Details: vascular exam Details: dorsalis pedis pulse present and normal capillary refill, tendon exam (Moves all toes) and motor-sensory exam Details: light-touch normal Location: in all toes Left lower extremity: hip/thigh Details: tenderness Location: of the hip Location: laterally and anteriorly, swelling Location: of the hip and abnormal ROM Details: pain with passive ROM (Full motion deferred secondary to fracture) Details: with flexion, with internal rotation and with external rotati
[2022-06-23] MEDS: hydrALAZINE HCL 20 MG/ML VIAL 10 MG IV PUSH (14:49)
[2022-06-23 16:45] LABS: Glucose Point of Care 413 mg/dl (65-105)
[2022-06-23 17:04] LABS: Glucose Point of Care 419 mg/dl (65-105)
[2022-06-23] MEDS: SODIUM CHLORIDE 0.9% IV 500 ML IV CONT (18:01)
[2022-06-23] MEDS: INSULIN ASPART (*BKC) 100 UNITS/ML SUB-Q ×2 (18:01→20:20)
[2022-06-23] MEDS: INSULIN GLARGINE (*BKC) 100 UNITS/ML SUB-Q (18:02)
[2022-06-23 18:08] LABS: Basophils Percent Auto 0.4 % (0.2-1.2); Eosinophils Absolute Auto 0.1 K/mm3 (0-0.3); Eosinophils Percent Auto 0.7 % (0-4.4); Hemoglobin 11.2 g/dL (12.0-15.0); Immature Granulocyte Absolute 0.05 K/mm3 (0.00-0.031); Immature Granulocyte Percent A 0.6 % (0-0.5); Lymphocytes Absolute Auto 0.25 K/mm3 (0.9-3.2); Mean Corpuscular HGB Conc 32.9 g/dl (32-36); Mean Corpuscular Hemoglobin 30.8 pg (26-34); Mean Corpuscular Volume 93.4 fl (80-100); Mean Platelet Volume 10.7 fl (7.4-10.4); Monocytes Absolute Auto 1.1 K/mm3 (0.1-0.6); Monocytes Percent Auto 13.7 % (2.6-8.5); Neutrophils Absolute Auto 6.7 K/mm3 (1.3-6.7); Neutrophils Percent Auto 81.6 % (45.5-73.1); Platelet Count Result 272 k/mm3 (150-375); Red Blood Count 3.64 M/mm3 (4.2-5.4); White Blood Count 8.3 K/mm3 (4.5-10.0)
[2022-06-23 18:27] LABS: Anisocytosis 1+ (NORMAL); Ovalocytes 1+ (NORMAL); Platelet Estimate Adequate (Adequate); Poikilocytosis 1+ (NORMAL)
[2022-06-23 18:58] LABS: Glucose Point of Care 414 mg/dl (65-105)
[2022-06-23] MEDS: INSULIN GLARGINE (*BKC) 100 UNITS/ML 6 UNITS SUB-Q (20:21)
[2022-06-23 22:23] LABS: Glucose Point of Care 375 mg/dl (65-105)
[2022-06-24] VITALS (24 sets, daily range): BP systolic 152–195; BP diastolic 68–89; PULSE 58–80; RESP 12–20; TEMP 36.1–37.2; O2SAT 95–100
[2022-06-24 00:43] LABS: Glucose Point of Care 123 mg/dl (65-105)
[2022-06-24 00:46] LABS: Glucose Point of Care 164 mg/dl (65-105)
[2022-06-24] MEDS: PROCHLORPERAZINE MALEATE 5 MG TABLET 10 MG BY MOUTH ×4 (06:33→23:11)
[2022-06-24 06:37] LABS: Alanine Aminotransferase 13 U/L (6-35); Alkaline Phosphatase 117 U/L (38-126); Anion Gap 2 mmol/L (8-16); Aspartate Amino Transferase 22 U/L (14-36); Bilirubin,Total 0.2 mg/dL (0.2-1.3); Blood Urea Nitrogen 17 mg/dL (7-17); Calcium 7.3 mg/dL (8.4-10.2); Carbon Dioxide 23 mmol/L (22-30); Chloride 109 mmol/L (98-107); Estimated CRCL calculation 37 ml/min; Estimated Glomerular Filt Rate 50; Glucose 52 mg/dL (65-110); Potassium 5.2 mmol/L (3.4-5.0); Sodium 134 mmol/L (137-145)
[2022-06-24] MEDS: DEXTROSE 50% 25 GM/50 ML SYRINGE IV PUSH (06:38)
[2022-06-24 07:12] LABS: Glucose Point of Care 111 mg/dl (65-105)
--- NOTE | 2022-06-24 07:12 | PM.IMPN ---
Progress Note: A&P Assessment and Plan (1) Closed fracture of left hip: Code(s): S72.002A - Fracture of unspecified part of neck of left femur, initial encounter for closed fracture <Padmaja Smith PA-C - Last Filed: 06/24/22 12:58> Status: Acute <Padmaja Smith PA-C - Last Filed: 06/24/22 12:58> Assessment and Plan: 06/[address] Payne, orthopedics -Anesthesiology deferring operation to optimize HCT, blood glucose, hyponatremia. -perioperative antibiotics, DVT prophylaxis as per orthopedics team -pain control:? Tylenol, [place], morphine -bowel regimen: Colace 06/23- Patient has been medically stabilized. Hgb/Hct 11.4/34.1; Sodium 136; Glucose 133. Orthopedics will proceed with repair tomorrow. NPO at midnight. 06/24- Plan is for OR today at 0930. Mild hyperkalemia 5.2, sodium 134, glucose stabilized after some AM hypoglycemia. IVF started, will continue to monitor. <Padmaja Smith PA-C - Last Filed: 06/24/22 12:58> (2) Type 1 diabetes mellitus: Code(s): E10.9 - Type 1 diabetes mellitus without complications <Padmaja Smith PA-C - Last Filed: 06/24/22 12:58> Status: Acute <Padmaja Smith PA-C - Last Filed: 06/24/22 12:58> Assessment and Plan: Patient is a brittle diabetic. 06/22? - Glucose>400. Patient appears quite dry, but is AO. CMP shows AG 0, CO2 26. - ABG showed pH 7.387, pCO2 33.8, HCO3 19.9, AG 4. UA showed 1+ ketones, 3+ glucose, Serum beta hydroxybutyrate 2.22 - 1L NS IVF bolus w/ 5U sq aspart -> 370. Add'l 1L NS + 5U sq aspart given. - started patient on 20meqK in .45NS/D5W at 100mL/ hr. - K stable at 3.6, continue to monitor. - Repeat labs to continue monitoring above. - Diabetic diet, resume home long acting 12U QHS, MDSS insulin with meals, accuchecks 06/23 - Patient hypoglycemic this AM, following protocol, improved now 133. - Will split lantus dosing to BID, patient appears to be brittle. - Continue to monitor and manage as above. 06/24. - late afternoon BG spiked to >400, patient was brought down overnight and is now in the low 1teens per nursing and fingersticks. Patient will remain NPO pending OR. Will continue to trend and adjust glucose as necessary. <DUKE YeC - Last Filed: 06/24/22 12:58> (3) Acute hypokalemia: Code(s): E87.6 - Hypokalemia <TRAM Ye-C - Last Filed: 06/24/22 12:58> Status: Acute <TRAM Ye-C - Last Filed: 06/24/22 12:58> Assessment and Plan: Patient jumped to 5.2 this AM, gentle IV fluids, renal function is preserved, will continue to trend. Continue to monitor with AM labs. <[place]KE YeC - Last Filed: 06/24/22 12:58> (4) Anemia: Code(s): D64.9 - Anemia, unspecified <TRAM Ye-C - Last Filed: 06/24/22 12:58> Status: Acute <TRAM Ye-C - Last Filed: 06/24/22 12:58> Assessment and Plan: 06/22 Patient suboptimal for surgical repair of the left hip. Surgery is requesting Hct of 30 prior to OR Transfuse 2 unit PRBCs. Repeat H& H after transfusion. 06/23 Hgb/Hct 11.4/34.1 today after 2 units PRBCs. Hemodynamically stable. Will continue to monitor. <[place]KE YeC - Last Filed: 06/24/22 12:58> (5) Acute hyponatremia: Code(s): E87.1 - Hypo-osmolality and hyponatremia <TRAM Ye-C - Last Filed: 06/24/22 12:58> Status: Acute <TRAM Ye-C - Last Filed: 06/24/22 12:58> Assessment and Plan: sodium 134 this AM Gentle IV fluids as patient is NPO today for OR. Will adjust sodium accordingly. <Padmaja Smith PA-C - Last Filed: 06/24/22 12:58> (6) CKD (chronic kidney disease): Code(s): N18.9 - Chronic kidney disease, unspecified <Padmaja Smith PA-C - Last Filed: 06/24/22 12:58> Status: Acute <Padmaja Smith PA-C - Last Filed: 06/24/22 12:58> Assessment and Plan: BUN/Cr
--- NOTE | 2022-06-24 07:21 | WPDHPUPDATE1 ---
History and Physical Update Update Date/Time: 06/24/22 07:21 History and Physical has been reviewed, including an updated exam of the patient. There are NO changes in the patient's condition. Risks, benefits, and alternatives have been discussed and questions answered. Patient agrees to proceed with procedure.
[2022-06-24 07:50] LABS: Glucose Point of Care 94 mg/dl (65-105)
[2022-06-24] MEDS: METOPROLOL TARTRATE 12.5 MG TABLET PO ×2 (08:15→20:28)
[2022-06-24] MEDS: amLODIPine BESYLATE 5 MG TABLET PO (08:15)
[2022-06-24] MEDS: METOPROLOL TARTRATE 25 MG TABLET PO ×2 (08:16→20:28)
--- NOTE | 2022-06-24 08:21 | PC.NURSE ---
To OR per bed, IV saline locked. Update given to KEVIN Barajas at bedside.
[2022-06-24 08:36] LABS: Glucose Point of Care 94 mg/dl (65-105)
--- NOTE | 2022-06-24 08:44 | WPDANESEPPF ---
Anes - Initial Pre Proc Eval Procedure: Operation Date: 06/22/22 09:30 Proposed Procedures p Left Intertrochanteric Nail - Phuc Cabrera MD Operation Date: 06/24/22 10:00 Proposed Procedures p Left Intertrochanteric Nail - Phuc Cabrera MD Date/Time: 06/24/22 08:44 Surgeon: Padmaja Smith PA-C Pre Op Diagnosis: left hip fracture, hypokalemia, hyponatremia,anemi Patient Data Age: 61 Gender: F Height: 1.68 m Weight: 49.4 kg Last Vital Signs Temp 36.9 C 06/24/22 06:55 Pulse 80 06/24/22 08:16 Resp 16 06/24/22 06:55 BP 160/71 H 06/24/22 06:55 Pulse Ox 98 06/24/22 06:55 O2 Del Method Room Air 06/23/22 08:00 Allergies Allergy/AdvReac Type Severity Reaction Status Date / Time Penicillins Allergy Intermediate hives Verified 06/21/22 22:26 Home Medications Medication Instructions Recorded Confirmed Type amlodipine 5 mg tablet 2.5 mg PO DAILY 04/19/22 06/22/22 History aspirin 81 mg tablet,delayed 81 mg PO DAILY 04/19/22 06/21/22 History release atorvastatin 40 mg tablet 40 mg PO DAILY 04/19/22 06/21/22 History clopidogrel 75 mg tablet 75 mg PO DAILY 04/19/22 06/21/22 History hydroxychloroquine 200 mg tablet 200 mg PO DAILY 04/19/22 06/22/22 History insulin aspart U-100 100 unit/mL 4 unit subcut TID 04/19/22 06/22/22 History (3 mL) subcutaneous pen (Novolog Flexpen U-100 Insulin aspart) insulin detemir U-100 100 unit/mL 6 unit subcut BID 04/19/22 06/22/22 History (3 mL) subcutaneous pen (Levemir FlexTouch U-100 Insulin) metoprolol tartrate 25 mg tablet 12.5 mg PO BID 04/19/22 06/21/22 History omeprazole 20 mg capsule,delayed 20 mg PO DAILY 04/19/22 06/21/22 History release valacyclovir 500 mg tablet 500 mg PO DAILY #90 tabs 04/26/22 06/21/22 Rx glimepiride 1 mg tablet 1 mg PO DAILY 06/22/22 06/22/22 History hydrocodone 5 mg-acetaminophen 325 See Rx Instructions .Route .COMPLEX 06/22/22 06/22/22 History mg tablet megestrol 20 mg tablet 20 mg PO DAILY 06/22/22 06/22/22 History metoprolol tartrate 25 mg tablet 25 mg PO BID 06/22/22 06/22/22 History ondansetron HCl 4 mg tablet See Rx Instructions .Route .COMPLEX 06/22/22 06/22/22 History prochlorperazine maleate 10 mg See Rx Instructions .Route .COMPLEX 06/22/22 06/22/22 History tablet Laboratory Tests 06/23/22 06/23/22 06/23/22 08:56 10:03 11:47 WBC RBC Hgb Hct MCV MCH MCHC RDW Plt Count MPV Immature Gran % (Auto) Neut % (Auto) Lymph % (Auto) [place] % (Auto) Eos % (Auto) Baso % (Auto) Lymph # (Auto) [place] # (Auto) Eos # (Auto) Baso # (Auto) Abs Immat Gran (auto) Absolute Neuts (auto) Absolute Nucleated RBC Nucleated RBC % Platelet Estimate Poikilocytosis Anisocytosis Ovalocytes Sodium Potassium Chloride Carbon Dioxide Anion Gap BUN Creatinine Estim Creat Clear Calc Estimated GFR Glucose POC Capillary Glucose 133 mg/dl H mg/dl 155 mg/dl H mg/dl 164 mg/dl H mg/dl (65-105) (65-105) (65-105) Calcium Total Bilirubin AST ALT Alkaline Phosphatase Total Protein Albumin 06/23/22 06/23/22 06/23/22 16:35 17:02 17:10 WBC 8.3 K/mm3 K/mm3 (4.5-10.0) RBC 3.64 M/mm3 L M/mm3 (4.2-5.4) Hgb 11.2 g/dL L g/dL (12.0-15.0) Hct 34.0 % L % (37.0-47.0) MCV 93.4 fl fl (80-100) MCH 30.8 pg pg (26-34) MCHC 32.9 g/dl g/dl (32-36) RDW 22.0 % H % (11.5-14.5) Plt Cou
[2022-06-24] MEDS: ACETAMINOPHEN 500 MG TABLET 1000 MG PO (08:56)
[2022-06-24] MEDS: TRANEXAMIC ACID 1,000MG/ISO100 1,000 MG/100 ML BAG 200 MG IVPB (08:57)
[2022-06-24] MEDS: KETOROLAC 15 MG/ML VIAL (*BKC) IV PUSH (08:57)
[2022-06-24] MEDS: LACTATED RINGERS 1,000 ML 30 ML IV CONT (09:20)
[2022-06-24] MEDS: ceFAZolin 2 GM/D5W 50 ML 2 GM/50 ML BAG IVPB (09:20)
[2022-06-24] MEDS: BUPIVACAINE/EPINEPHRINE 0.25% 50 ML VIAL 10 ML INFILTRATE (10:05)
[2022-06-24] MEDS: BUPIVACAINE/EPINEPHRINE 0.25% 50 ML VIAL 30 ML INFILTRATE (10:30)
--- NOTE | 2022-06-24 10:43 | W.PM.PROC2 ---
Procedure Note - Detailed Date of Procedure 06/24/22 Pre-op Diagnosis left hip fracture, hypokalemia, hyponatremia,anemi Post-op Diagnosis Same Procedure Performed Left hip trochanteric nail Surgeon Phuc Cabrera MD Foreign Languages Professor 1st music assistant Anesthesia General Indications 61-year-old woman who fell and sustained a left hip intertrochanteric fracture. Underwent medical optimization and stabilization and presents now for operative treatment. Description of Procedure After informed consent the operative extremity was marked in the preoperative holding area. Patient received intravenous antibiotics. The patient was taken to the operative room, placed in the supine position, general anesthesia induced by the anesthesia team, and was placed on a fracture table with longitudinal traction applied to the left leg. The hip fracture was reduced to near anatomic position and verified with image intensification. A time-out was performed confirming the patient, site of the surgery and plan. The left lower extremity was prepped and draped sterilely from the knee to the iliac crest region using a ChloraPrep skin solution. Incision was made just proximal to greater trochanter down to the subcutaneous tissues. Hemostasis controlled with electrocautery. Blunt dissection through the fascia to the tip of the greater trochanter. A starter awl was placed at the tip of the greater trochanter into the medullary canal of the femur. This was checked with image intensification and was in good position. Intramedullary guide kortney positioned. A one-step hand reaming done proximally. Intramedullary canal was reamed with a 12.5 millimeter flexible reamer. Neck angle selected off of preoperative radiographs temp plating. 125 degree 11 X 200mm Nail opened on the back table and assembled. This was then inserted over the guide kortney to the correct depth. Guide kortney removed. Lag screw was then placed with a stab incision over the lateral femur using a 10 blade knife. Blunt dissection down to the lateral side of the bone. Soft tissue protectors placed. Guide pin placed in the center center position of the femoral head and measured. 90 millimeter x 10.5 millimeter lag screw placed to correct depth and verified with image intensification. Traction released from the leg and compression of the fracture performed with the external compression device. Distal locking of the nail performed with the outrigger and soft tissue protector. Stab incision with 15 blade knife and blunt dissection lateral side of the femur. Drill and appropriate size screw placed. Final image intensification confirmed reduction of the fracture and placement of the hardware. Wounds then thoroughly irrigated with antibiotic solution. Fascia repaired with 0 Vicryl interrupted suture. Subcutaneous tissue repaired with 2 O Vicryl interrupted suture and skin repaired with 3-0 Monocryl subcuticular stitches and glue. Sterile dressings applied. Patient then awoke from anesthesia, extubated taken to recovery room stable condition. All sponge, needle and instrument counts correct at the end the case. Implants Arthrex trochanteric nail 11 mm 125 degree 200 mm length, 90 mm x 10.5 mm lag screw, 34 mm x 5 mm distal locking screw. Estimated Blood Loss 100 Urine Output 300 Drains No Packing No Pathology None sent Complications None Condition Stable Disposition PACU
[2022-06-24 10:53] LABS: Glucose Point of Care 72 mg/dl (65-105)
[2022-06-24 12:03] LABS: Glucose Point of Care 82 mg/dl (65-105)
--- NOTE | 2022-06-24 12:14 | PC.NURSE ---
Returned from OR per bed. Report received from Isaías.
[2022-06-24] MEDS: DEXTROSE 5%/0.45% SOD CHL 1,000 ML 80 ML IV CONT (12:59)
[2022-06-24] MEDS: PANTOPRAZOLE 40 MG TABLET PO (13:03)
[2022-06-24] MEDS: valACYclovir HCL 500 MG TABLET PO (13:03)
[2022-06-24] MEDS: ATORVASTATIN 40 MG TABLET PO (13:03)
[2022-06-24] MEDS: MEGESTROL ACETATE (*CHEMO) 20 MG TABLET PO (13:03)
[2022-06-24] MEDS: hydrALAZINE HCL 20 MG/ML VIAL 10 MG IV PUSH (13:43)
--- NOTE | 2022-06-24 13:57 | PCDIET ---
Dietitian screen for BMI:17.6 underweight. Surgery today-Left hip fx. Diet order has been advanced to a clear liquid diet. Ensure clear on all trays for additional 240 kcals and 8 gms protein. Will monitor with diet order progression.
[2022-06-24 16:17] LABS: Basophils Absolute Auto 0.1 K/mm3 (0.0-0.1); Basophils Percent Auto 0.5 % (0.2-1.2); Eosinophils Absolute Auto 0.2 K/mm3 (0-0.3); Eosinophils Percent Auto 1.9 % (0-4.4); Hematocrit 33.4 % (37.0-47.0); Hemoglobin 10.6 g/dL (12.0-15.0); Immature Granulocyte Absolute 0.05 K/mm3 (0.00-0.031); Immature Granulocyte Percent A 0.5 % (0-0.5); Lymphocytes Absolute Auto 0.39 K/mm3 (0.9-3.2); Lymphocytes Percent Auto 4.3 % (18.3-44.2); Mean Corpuscular HGB Conc 31.7 g/dl (32-36); Mean Corpuscular Hemoglobin 31.1 pg (26-34); Mean Corpuscular Volume 97.9 fl (80-100); Mean Platelet Volume 10.6 fl (7.4-10.4); Monocytes Absolute Auto 1.4 K/mm3 (0.1-0.6); Monocytes Percent Auto 15.6 % (2.6-8.5); Neutrophils Absolute Auto 7.1 K/mm3 (1.3-6.7); Neutrophils Percent Auto 77.2 % (45.5-73.1); Platelet Count Result 289 k/mm3 (150-375); Red Blood Count 3.41 M/mm3 (4.2-5.4); Red Cell Distribution Width 22.5 % (11.5-14.5); White Blood Count 9.2 K/mm3 (4.5-10.0)
[2022-06-24] MEDS: DOCUSATE SODIUM 100 MG CAPSULE PO (16:22)
[2022-06-24] MEDS: HYDROXYCHLOROQUINE SULFATE 200 MG TABLET PO (16:23)
[2022-06-24] MEDS: INSULIN ASPART (*BKC) 100 UNITS/ML SUB-Q (16:23)
[2022-06-24 16:55] LABS: Glucose Point of Care 240 mg/dl (65-105)
[2022-06-24] MEDS: LOPERAMIDE HCL 2 MG CAPSULE 4 MG PO (18:12)
[2022-06-24] MEDS: INSULIN GLARGINE (*BKC) 100 UNITS/ML 6 UNITS SUB-Q (20:26)
[2022-06-24 20:40] LABS: Glucose Point of Care 178 mg/dl (65-105)
[2022-06-24] MEDS: HYDROcodone/acetaminophen (*CRX) 5-325 MG TABLET 1 TAB PO (23:11)
[2022-06-25] VITALS (17 sets, daily range): BP systolic 149–169; BP diastolic 62–90; PULSE 66–80; RESP 12–18; TEMP 36.5–37.9; O2SAT 98–100; BMI 17.6
[2022-06-25] MEDS: DEXTROSE 5%/0.45% SOD CHL 1,000 ML 80 ML IV CONT (00:36)
[2022-06-25] MEDS: ACETAMINOPHEN 325 MG TABLET 650 MG PO (01:23)
[2022-06-25 05:30] LABS: Basophils Percent Auto 0.5 % (0.2-1.2); Eosinophils Absolute Auto 0.1 K/mm3 (0-0.3); Eosinophils Percent Auto 1.2 % (0-4.4); Hematocrit 28.8 % (37.0-47.0); Hemoglobin 9.6 g/dL (12.0-15.0); Immature Granulocyte Absolute 0.04 K/mm3 (0.00-0.031); Immature Granulocyte Percent A 0.5 % (0-0.5); Lymphocytes Absolute Auto 0.25 K/mm3 (0.9-3.2); Lymphocytes Percent Auto 3.3 % (18.3-44.2); Mean Corpuscular HGB Conc 33.3 g/dl (32-36); Mean Corpuscular Hemoglobin 31.7 pg (26-34); Mean Platelet Volume 10.4 fl (7.4-10.4); Monocytes Absolute Auto 1.1 K/mm3 (0.1-0.6); Monocytes Percent Auto 14.1 % (2.6-8.5); Neutrophils Percent Auto 80.4 % (45.5-73.1); Platelet Count Result 239 k/mm3 (150-375); Red Blood Count 3.03 M/mm3 (4.2-5.4); Red Cell Distribution Width 21.2 % (11.5-14.5); White Blood Count 7.5 K/mm3 (4.5-10.0)
[2022-06-25 05:40] LABS: Alanine Aminotransferase 12 U/L (6-35); Albumin Level 1.9 g/dL (3.5-5.1); Alkaline Phosphatase 106 U/L (38-126); Anion Gap 4 mmol/L (8-16); Aspartate Amino Transferase 23 U/L (14-36); Bilirubin,Total 0.2 mg/dL (0.2-1.3); Blood Urea Nitrogen 15 mg/dL (7-17); Calcium 7.1 mg/dL (8.4-10.2); Carbon Dioxide 19 mmol/L (22-30); Chloride 107 mmol/L (98-107); Estimated CRCL calculation 37 ml/min; Estimated Glomerular Filt Rate 50; Glucose 101 mg/dL (65-110); Potassium 4.8 mmol/L (3.4-5.0); Sodium 130 mmol/L (137-145)
[2022-06-25] MEDS: PROCHLORPERAZINE MALEATE 5 MG TABLET 10 MG BY MOUTH ×3 (05:58→17:23)
[2022-06-25 06:30] LABS: Band Neutrophils Percent 16 % (0-6); Eosinophils Percent Manual 4 % (0-4); Lymphocytes Absolute Manual 0.37 K/mm3 (1.1-4.5); Metamyelocytes Percent 4 %; Monocytes Absolute Manual 0.15 K/mm3 (0.1-0.90); Monocytes Percent Manual 2 % (3-9); Myelocytes Percent 2 %; Neutrophils Absolute Manual 6.15 K/mm3 (1.7-7.2); Neutrophils Percent Manual 66 % (46-73); Promyelocytes Percent 1 %; Total Cells Counted 100
[2022-06-25 06:48] LABS: Platelet Estimate Adequate (Adequate)
[2022-06-25 07:34] LABS: Glucose Point of Care 102 mg/dl (65-105)
[2022-06-25] MEDS: ATORVASTATIN 40 MG TABLET PO (08:10)
[2022-06-25] MEDS: HYDROXYCHLOROQUINE SULFATE 200 MG TABLET PO ×2 (08:10→17:23)
[2022-06-25] MEDS: ASPIRIN 81 MG ENTERIC TABLET PO (08:10)
[2022-06-25] MEDS: MEGESTROL ACETATE (*CHEMO) 20 MG TABLET PO (08:10)
[2022-06-25] MEDS: CLOPIDOGREL BISULFATE 75 MG TABLET PO (08:10)
[2022-06-25] MEDS: METOPROLOL TARTRATE 12.5 MG TABLET PO ×2 (08:10→21:02)
[2022-06-25] MEDS: SODIUM CHLORIDE 0.9% IV 1,000 ML 75 ML IV CONT ×2 (08:10→21:03)
[2022-06-25] MEDS: amLODIPine BESYLATE 5 MG TABLET PO (08:10)
[2022-06-25] MEDS: METOPROLOL TARTRATE 25 MG TABLET PO ×2 (08:11→21:02)
[2022-06-25] MEDS: INSULIN GLARGINE (*BKC) 100 UNITS/ML 6 UNITS SUB-Q ×2 (08:11→21:00)
[2022-06-25] MEDS: valACYclovir HCL 500 MG TABLET PO (08:11)
[2022-06-25] MEDS: PANTOPRAZOLE 40 MG TABLET PO (08:11)
[2022-06-25] MEDS: SODIUM CHLORIDE 1 GM TABLET PO ×2 (08:27→17:22)
--- NOTE | 2022-06-25 09:55 | PCOTNOTE ---
Attempted to work with patient at end of ANIMAL CONTROL SPECIALIST's session for OT, patient refused. Patient reported I just need an hour of sleep. and was tearful. Will attempt to see patient later to continue OT plan of care.
[2022-06-25 11:36] LABS: Glucose Point of Care 124 mg/dl (65-105)
--- NOTE | 2022-06-25 13:25 | WPDANESPN ---
Anes - Prog Note Post-Op Date/Time: 06/25/22 13:25 Vital Signs: Last Vital Signs Temp 37.1 C 06/25/22 10:05 Pulse 80 06/25/22 12:00 Resp 14 06/25/22 10:05 BP 158/76 H 06/25/22 10:05 Pulse Ox 100 06/25/22 10:05 O2 Del Method Room Air 06/25/22 08:15 O2 Flow Rate 10 06/24/22 10:45 Pain Score (VAS): patient is confused, doesn't remember having procedure but feels ok I/O: Intake & Output 06/24/22 06/25/22 06/25/22 23:59 07:59 15:59 Intake Total 770 1100 360 Output Total 300 Balance 770 800 360 Laboratory Tests 06/25/22 05:07 06/25/22 05:07 06/24/22 06/24/22 06/24/22 05:26 16:22 20:25 WBC 9.2 RBC 3.41 L Hgb 10.6 L Hct 33.4 L MCV 97.9 MCH 31.1 MCHC 31.7 L RDW 22.5 H Plt Count 289 MPV 10.6 H Immature Gran % (Auto) 0.5 Neut % (Auto) 77.2 H Lymph % (Auto) 4.3 L [place] % (Auto) 15.6 H Eos % (Auto) 1.9 Baso % (Auto) 0.5 Lymph # (Auto) 0.39 L [place] # (Auto) 1.4 H Eos # (Auto) 0.2 Baso # (Auto) 0.1 Abs Immat Gran (auto) 0.05 H Absolute Neuts (auto) 7.1 H Absolute Nucleated RBC 0.0 Total Counted Neutrophils % (Manual) Band Neutrophils % Lymphocytes % (Manual) Monocytes % (Manual) Eosinophils % (Manual) Metamyelocytes % Myelocytes % Promyelocytes % (Man) Nucleated RBC % 0.0 Abs Neuts (Manual) Abs Lymphs (Manual) Abs Monocytes (Manual) Absolute Eos (Manual) Platelet Estimate Sodium Potassium Chloride Carbon Dioxide Anion Gap BUN Creatinine Estim Creat Clear Calc Estimated GFR Glucose POC Capillary Glucose 240 H 178 H Calcium Total Bilirubin AST ALT Alkaline Phosphatase Total Protein Albumin 06/25/22 06/25/22 06/25/22 05:07 05:07 07:28 WBC 7.5 RBC 3.03 L Hgb 9.6 L Hct 28.8 L MCV 95.0 MCH 31.7 MCHC 33.3 RDW 21.2 H Plt Count 239 MPV 10.4 Immature Gran % (Auto) 0.5 Neut % (Auto) 80.4 H Lymph % (Auto) 3.3 L Trinity % (Auto) 14.1 H Eos % (Auto) 1.2 Baso % (Auto) 0.5 Lymph # (Auto) 0.25 L [place] # (Auto) 1.1 H Eos # (Auto) 0.1 Baso # (Auto) 0.0 Abs Immat Gran (auto) 0.04 H Absolute Neuts (auto) 6.0 Absolute Nucleated RBC 0.0 Total Counted 100 Neutrophils % (Manual) 66 Band Neutrophils % 16 H Lymphocytes % (Manual) 5.0 L Monocytes % (Manual) 2 L Eosinophils % (Manual) 4 Metamyelocytes % 4 Myelocytes % 2 Promyelocytes % (Man) 1 Nucleated RBC % 0.0 Abs Neuts (Manual) 6.15 Abs Lymphs (Manual) 0.37 L Abs Monocytes (Manual) 0.15 Absolute Eos (Manual) 0.30 Platelet Estimate Adequate Sodium 130 L Potassium 4.8 Chloride 107 Carbon Dioxide 19 L Anion Gap 4 L BUN 15 Creatinine 1.10 H Estim Creat Clear Calc 37 Estimated GFR 50 L Glucose 101 POC Capillary Glucose 102 Calcium 7.1 L Total Bilirubin 0.2 AST 23 ALT 12 Alkaline Phosphatase 106 Total Protein 5.0 L Albumin 1.9 L 06/25/22 11:28 WBC RBC Hgb Hct MCV MCH MCHC RDW Plt Count MPV Immature Gran % (Auto) Neut % (Auto) Lymph % (Auto) Trinity % (Auto) Eos % (Auto) Baso % (Auto) Lymph # (Auto) Trinity # (Auto) Eos # (Auto) Baso # (Auto) Abs Immat Gran (auto) Absolute Neuts (auto) Absolute Nucleated RBC Total Counted Neutrophils % (Manual) Band Neutrophils % Lymphocytes % (Manual) Monocytes % (Manual) Eosinophils % (Manual) Metamyelocytes % Myelocytes % Promyelocytes % (Man) Nucleated RBC % Abs Neuts (Manual) Abs Lymphs (Manual) Abs Monocytes (Manual) Absolute Eos (Manual) Platelet Estimate Sodium Potassium Chloride Carbon Dioxide Anion Gap BUN Creatinine Estim Creat Clear Calc Estimated GFR Glucose POC Capillary Glucose 124 H Calcium Total Bilirubin AST ALT Alkaline Phosphatase Tot
[2022-06-25] MEDS: LOPERAMIDE HCL 2 MG CAPSULE 4 MG PO (13:47)
--- NOTE | 2022-06-25 15:10 | PM.IMPN ---
Progress Note: A&P Assessment and Plan (1) Closed fracture of left hip: Code(s): S72.002A - Fracture of unspecified part of neck of left femur, initial encounter for closed fracture <Padmaja Smith PA-C - Last Filed: 06/25/22 15:21> Status: Acute <Padmaja Smith PA-C - Last Filed: 06/25/22 15:21> Assessment and Plan: 06/[address] Payne, orthopedics -Anesthesiology deferring operation to optimize HCT, blood glucose, hyponatremia. -perioperative antibiotics, DVT prophylaxis as per orthopedics team -pain control:? Tylenol, [place], morphine -bowel regimen: Colace 06/23- Patient has been medically stabilized. Hgb/Hct 11.4/34.1; Sodium 136; Glucose 133. Orthopedics will proceed with repair tomorrow. NPO at midnight. 06/24- Plan is for OR today at 0930. Mild hyperkalemia 5.2, sodium 134, glucose stabilized after some AM hypoglycemia. IVF started, will continue to monitor. 06/25- POD 1- Patient doing well with PT/OT. Pain control and DVT prophylaxis per orthopedics. Discussion of SNF vs HH is ongoing as patient is evaluated. Patient has been unable to void since removing the xie catheter. She is retaining urine. Xie was replaced. She may require urology consultation. Voiding trial tomorrow or next day pending ortho clearance for D/C. Encouraged Q2Hr incentive spirometry with patient and also discussed with nursing staff. <Padmaja Smith PA-C - Last Filed: 06/25/22 15:21> (2) Type 1 diabetes mellitus: Code(s): E10.9 - Type 1 diabetes mellitus without complications <Padmaja Smith PA-C - Last Filed: 06/25/22 15:21> Status: Acute <Padmaja Smith PA-C - Last Filed: 06/25/22 15:21> Assessment and Plan: Patient is a brittle diabetic. 06/22? - Glucose>400. Patient appears quite dry, but is AO. CMP shows AG 0, CO2 26. - ABG showed pH 7.387, pCO2 33.8, HCO3 19.9, AG 4. UA showed 1+ ketones, 3+ glucose, Serum beta hydroxybutyrate 2.22 - 1L NS IVF bolus w/ 5U sq aspart -> 370. Add'l 1L NS + 5U sq aspart given. - started patient on 20meqK in .45NS/D5W at 100mL/ hr. - K stable at 3.6, continue to monitor. - Repeat labs to continue monitoring above. - Diabetic diet, resume home long acting 12U QHS, MDSS insulin with meals, accuchecks 06/23 - Patient hypoglycemic this AM, following protocol, improved now 133. - Will split lantus dosing to BID, patient appears to be brittle. - Continue to monitor and manage as above. 06/24. - late afternoon BG spiked to >400, patient was brought down overnight and is now in the low 1teens per nursing and fingersticks. Patient will remain NPO pending OR. Will continue to trend and adjust glucose as necessary. 06/25 - Blood sugars have been stable today. Continue current regimen as above, and continue to monitor. <Padmaja Smith PA-C - Last Filed: 06/25/22 15:21> (3) Acute hypokalemia: Code(s): E87.6 - Hypokalemia <Padmaja Smith PA-C - Last Filed: 06/25/22 15:21> Status: Acute <Padmaja Smith PA-C - Last Filed: 06/25/22 15:21> Assessment and Plan: Patient jumped to 5.2 this AM, gentle IV fluids, renal function is preserved, will continue to trend. Continue to monitor with AM labs. 06/25- 4.8 today, normalized. Continue to monitor with AM labs. <Padmaja Smith PA-C - Last Filed: 06/25/22 15:21> (4) Anemia: Code(s): D64.9 - Anemia, unspecified <Padmaja Smith PA-C - Last Filed: 06/25/22 15:21> Status: Acute <Padmaja Smith PA-C - Last Filed: 06/25/22 15:21> Assessment and Plan: 06/22 Patient suboptimal for surgical repair of the left hip. Surgery is requesting Hct of 30 prior to OR Transfuse 2 unit PRBCs. Repeat H& H after transfusion. 06/23 Hgb/Hct 11.4/34.1 today after 2 units PRBCs. Hemodynamically stable. Will continue to monitor. 06/25- Hgb/HCT down today, likely postoperative in nature. Patient is asymptomatic, VSS, will continu
[2022-06-25 16:56] LABS: Glucose Point of Care 140 mg/dl (65-105)
[2022-06-25] MEDS: NICOTINE (*PBKC) 14 MG PATCH 1 PATCH TRANSDERM (17:23)
--- NOTE | 2022-06-25 17:30 | PM.PNORT ---
Progress Note: A&P Assessment and Plan (1) Closed fracture of left hip: Qualifiers: Encounter type: subsequent encounter Fracture healing: with routine healing Qualified Code(s): S72.002D - Fracture of unspecified part of neck of left femur, subsequent encounter for closed fracture with routine healing Code(s): S72.002A - Fracture of unspecified part of neck of left femur, initial encounter for closed fracture Status: Acute Assessment and Plan: Postoperative day 1 left hip trochanteric nail. PT/OT with weight-bearing as tolerated. Pain relatively well controlled. DVT prophylaxis with aspirin/ Plavix. Patient would like to be able to return home with home health if able. We will see how therapy goes tomorrow. Subjective Subjective Date/Time Seen: 06/25/22 17:30 Post Op day: 1 Principal diagnosis: Left hip intertrochanteric fracture Interval history: patient awake. Sitting up in bed. Pain earlier but better control now. Operative findings and treatment reviewed. Exam Const: General: comfortable; No acute distress Resp: Effort & Inspection: normal respiratory effort and no audible wheezes Extrem: Right lower extremity: lower leg ( Negative Homans sign), ankle Details: normal ROM ( dorsiflexion and plantar flexion intact) and foot Details: vascular exam Details: dorsalis pedis pulse present and normal capillary refill, tendon exam Details: active flexion normal and active extension normal and motor-sensory exam Details: light-touch normal Location: in all toes; no edema Left lower extremity: normal to inspection, ankle Details: normal ROM and foot Details: vascular exam Details: dorsalis pedis pulse present and normal capillary refill and motor-sensory exam light-touch normal in all toes; no edema Other: Left hip dressing clean dry and intact. Muscle soft. Objective Data Vital Signs Vital Signs: Vital Signs - 24 hr 06/24/22 18:47 06/24/22 19:47 06/24/22 20:28 Temperature 97.4 F L 98.9 F Pulse Rate 76 77 79 Respiratory Rate 12 20 Blood Pressure 180/71 H 162/76 H Pulse Oximetry 100 99 Oxygen Delivery 06/24/22 20:28 06/24/22 21:51 06/24/22 20:00 Temperature 98.5 F Pulse Rate 79 70 Respiratory Rate 16 Blood Pressure 152/68 H Pulse Oximetry 98 Oxygen Delivery Room Air 06/24/22 20:00 06/25/22 00:00 06/25/22 01:20 Temperature 100.2 F H Pulse Rate 76 72 71 Respiratory Rate 12 Blood Pressure 169/70 H Pulse Oximetry 99 Oxygen Delivery 06/25/22 01:23 06/25/22 04:00 06/25/22 05:29 Temperature 100.2 F H 97.7 F Pulse Rate 66 69 Respiratory Rate 12 Blood Pressure 159/62 H Pulse Oximetry 98 Oxygen Delivery 06/25/22 02:23 06/25/22 08:10 06/25/22 08:11 Temperature 97.7 F Pulse Rate 80 80 Respiratory Rate Blood Pressure Pulse Oximetry Oxygen Delivery 06/25/22 08:17 06/25/22 08:00 06/25/22 08:15 Temperature Pulse Rate 75 Respiratory Rate Blood Pressure 164/90 H Pulse Oximetry Oxygen Delivery Room Air 06/25/22 10:05 06/25/22 12:00 06/25/22 13:29 Temperature 98.7 F 97.9 F Pulse Rate 72 80 75 Respiratory Rate 14 14 Blood Pressure 158/76 H 159/70 H Pulse Oximetry 100 100 Oxygen Delivery 06/25/22 16:00 Temperature Pulse Rate 72 Respiratory Rate Blood Pressure Pulse Oximetry Oxygen Delivery Intake/Output Intake/Output: Intake & Output 06/22/22 06/23/22 06/24/22 06/25/22 23:59 23:59 23:59 23:59 Intake Total 1450 1805 1460 1460 Output Total 1200 700 800 300 Balance 250 0850 573 7163 Meds/Results Medications: Active Medications Generic Name Dose Route Start Last Admin Trade Name Kvng PRN Reason Stop Dose Admin Acetaminophen 650 mg 06/21/22 20:39 06/25/22 01:23 Acetaminophen 325 Mg Tablet PO 650 mg Q4H PRN Administration Mild Pain (1-3) or Fever Hydrocodone Bitart/Acetaminophen 1 tab 06/21/22 20:39 06/24/22 23:11 H
[2022-06-25 18:40] LABS: Basophils Percent Auto 0.3 % (0.2-1.2); Eosinophils Absolute Auto 0.1 K/mm3 (0-0.3); Eosinophils Percent Auto 0.6 % (0-4.4); Hematocrit 32.6 % (37.0-47.0); Hemoglobin 10.9 g/dL (12.0-15.0); Immature Granulocyte Absolute 0.05 K/mm3 (0.00-0.031); Immature Granulocyte Percent A 0.6 % (0-0.5); Lymphocytes Absolute Auto 0.32 K/mm3 (0.9-3.2); Lymphocytes Percent Auto 3.6 % (18.3-44.2); Mean Corpuscular HGB Conc 33.4 g/dl (32-36); Mean Corpuscular Hemoglobin 31.7 pg (26-34); Mean Corpuscular Volume 94.8 fl (80-100); Mean Platelet Volume 10.5 fl (7.4-10.4); Monocytes Percent Auto 11.4 % (2.6-8.5); Neutrophils Absolute Auto 7.4 K/mm3 (1.3-6.7); Neutrophils Percent Auto 83.5 % (45.5-73.1); Platelet Count Result 265 k/mm3 (150-375); Red Blood Count 3.44 M/mm3 (4.2-5.4); Red Cell Distribution Width 21.3 % (11.5-14.5); White Blood Count 8.9 K/mm3 (4.5-10.0)
[2022-06-25 21:17] LABS: Glucose Point of Care 135 mg/dl (65-105)
[2022-06-26] VITALS (8 sets, daily range): BP systolic 150–195; BP diastolic 60–75; PULSE 69–76; RESP 17–18; TEMP 36.6–36.9; O2SAT 97–100
[2022-06-26] MEDS: PROCHLORPERAZINE MALEATE 5 MG TABLET 10 MG BY MOUTH ×3 (00:01→12:48)
[2022-06-26] MEDS: LOPERAMIDE HCL 2 MG CAPSULE 4 MG PO ×3 (00:01→12:48)
[2022-06-26 05:26] LABS: Alanine Aminotransferase 7 U/L (6-35); Alkaline Phosphatase 123 U/L (38-126); Anion Gap 6 mmol/L (8-16); Aspartate Amino Transferase 25 U/L (14-36); Bilirubin,Total 0.3 mg/dL (0.2-1.3); Blood Urea Nitrogen 17 mg/dL (7-17); Calcium 7.1 mg/dL (8.4-10.2); Carbon Dioxide 17 mmol/L (22-30); Chloride 111 mmol/L (98-107); Estimated CRCL calculation 37 ml/min; Estimated Glomerular Filt Rate 50; Glucose 67 mg/dL (65-110); Potassium 4.6 mmol/L (3.4-5.0); Sodium 134 mmol/L (137-145)
[2022-06-26 07:48] LABS: Glucose Point of Care 100 mg/dl (65-105)
--- NOTE | 2022-06-26 08:05 | PCPTNOTE ---
Attempted to see patient for PT, however patient just got her breakfast tray and was eating breakfast at this time.
--- NOTE | 2022-06-26 08:56 | PM.PNORT ---
Progress Note: A&P Assessment and Plan (1) Closed fracture of left hip: Qualifiers: Encounter type: subsequent encounter Fracture healing: with routine healing Qualified Code(s): S72.002D - Fracture of unspecified part of neck of left femur, subsequent encounter for closed fracture with routine healing Code(s): S72.002A - Fracture of unspecified part of neck of left femur, initial encounter for closed fracture Status: Acute Assessment and Plan: Postoperative day 2: left hip trochanteric nail. PT/OT with weight-bearing as tolerated. Pain relatively well controlled. DVT prophylaxis with aspirin/ Plavix. Patient would like to be able to return home with home health if able. We will see how therapy goes tomorrow. Ok from ortho standpoint to d/c Subjective Subjective Date/Time Seen: 06/26/22 08:56 Post Op day: 2 Principal diagnosis: Left hip intertrochanteric fracture Interval history: patient awake. Sitting up in bed. Tolerating diet. Pain controlled now. Operative findings and treatment reviewed. discharge plans reviewed. Exam Const: General: comfortable; No acute distress or confusion Orientation/consciousness: No confusion HENMT: Head: normal to inspection, normocephalic and atraumatic Eyes: Conjunctivae: conjunctivae normal Sclera: sclerae normal Neck: Neck: supple and nontender Chest: Chest palpation & inspection: normal inspection of the chest Resp: Effort & Inspection: normal respiratory effort and no audible wheezes Cardio: Rate: regular rate Rhythm: regular rhythm : General: Yes deferred Skin: General skin exam: no rashes or lesions noted Neuro: General: No confusion Cranial nerves: Yes Normal hearing present Extrem: General: capillary refill normal Right upper extremity: normal to inspection Left upper extremity: normal to inspection Right lower extremity: normal to inspection, hip/thigh Details: normal to inspection and normal ROM; no tenderness and no swelling, knee Details: no tenderness and no swelling, lower leg ( Negative Homans sign), ankle Details: normal ROM ( dorsiflexion and plantar flexion intact) and foot Details: vascular exam Details: dorsalis pedis pulse present and normal capillary refill, tendon exam Details: active flexion normal and active extension normal and motor-sensory exam Details: light-touch normal Location: in all toes; no edema Left lower extremity: normal to inspection, hip/thigh Details: tenderness Location: of the hip Location: laterally and anteriorly, swelling Location: of the hip and abnormal ROM Details: pain with passive ROM (Full motion deferred secondary to fracture) Details: with flexion, with internal rotation and with external rotation, ankle Details: normal ROM and foot Details: vascular exam Details: dorsalis pedis pulse present and normal capillary refill and motor-sensory exam light-touch normal in all toes; no edema Other: Left hip dressing clean dry and intact. Muscle soft. Psych: Affect: normal affect Objective Data Vital Signs Vital Signs: Vital Signs - 24 hr 06/25/22 10:05 06/25/22 12:00 06/25/22 13:29 Temperature 98.7 F 97.9 F Pulse Rate 72 80 75 Respiratory Rate 14 14 Blood Pressure 158/76 H 159/70 H Pulse Oximetry 100 100 Oxygen Delivery 06/25/22 16:00 06/25/22 19:10 06/25/22 21:02 Temperature 98.5 F Pulse Rate 72 76 74 Respiratory Rate 18 Blood Pressure 149/72 H Pulse Oximetry 99 Oxygen Delivery 06/25/22 21:02 06/25/22 20:00 06/26/22 00:01 Temperature 98.4 F Pulse Rate 74 72 Respiratory Rate 18 Blood Pressure 150/60 H Pulse Oximetry 100 Oxygen Delivery Room Air 06/25/22 20:00 06/26/22 00:00 06/26/22 04:00 Temperature Pulse Rate 75 73 69 Respiratory Rate Blood Pressure Pulse Oximetry Oxygen Delivery 06/26/22 04:27 06/26/22 08:00 Temperature 97.8 F Pulse Rate 73 Respiratory Rate 17 Blood Pressure 151/67 H Puls
[2022-06-26] MEDS: SODIUM CHLORIDE 1 GM TABLET PO (09:55)
[2022-06-26] MEDS: ASPIRIN 81 MG ENTERIC TABLET PO (09:55)
[2022-06-26] MEDS: ATORVASTATIN 40 MG TABLET PO (09:55)
[2022-06-26] MEDS: amLODIPine BESYLATE 5 MG TABLET PO (09:55)
[2022-06-26] MEDS: DOCUSATE SODIUM 100 MG CAPSULE PO (09:56)
[2022-06-26] MEDS: METOPROLOL TARTRATE 25 MG TABLET PO (09:56)
[2022-06-26] MEDS: METOPROLOL TARTRATE 12.5 MG TABLET PO (09:56)
[2022-06-26] MEDS: CLOPIDOGREL BISULFATE 75 MG TABLET PO (09:56)
[2022-06-26] MEDS: PANTOPRAZOLE 40 MG TABLET PO (09:56)
[2022-06-26] MEDS: MEGESTROL ACETATE (*CHEMO) 20 MG TABLET PO (09:56)
[2022-06-26] MEDS: valACYclovir HCL 500 MG TABLET PO (09:56)
[2022-06-26] MEDS: NICOTINE (*PBKC) 14 MG PATCH 1 PATCH TRANSDERM (09:56)
[2022-06-26] MEDS: HYDROXYCHLOROQUINE SULFATE 200 MG TABLET PO (09:56)
[2022-06-26] MEDS: INSULIN GLARGINE (*BKC) 100 UNITS/ML 6 UNITS SUB-Q (10:01)
[2022-06-26] MEDS: SODIUM CHLORIDE 0.9% IV 1,000 ML 75 ML IV CONT (10:03)
--- NOTE | 2022-06-26 11:41 | PM.DS ---
DS: Admitting Diagnosis Discharge Date 06/26/22 Admitting Diagnosis hip fracture DS: Discharge Diagnosis Discharge Diagnosis (1) Closed fracture of left hip: Qualifiers: Encounter type: subsequent encounter Fracture healing: with routine healing Qualified Code(s): S72.002D - Fracture of unspecified part of neck of left femur, subsequent encounter for closed fracture with routine healing Code(s): S72.002A - Fracture of unspecified part of neck of left femur, initial encounter for closed fracture Status: Acute Assessment and Plan: 06/[address] Payne, orthopedics -Anesthesiology deferring operation to optimize HCT, blood glucose, hyponatremia. -perioperative antibiotics, DVT prophylaxis as per orthopedics team -pain control:? Tylenol, [place], morphine -bowel regimen: Colace 06/23- Patient has been medically stabilized. Hgb/Hct 11.4/34.1; Sodium 136; Glucose 133. Orthopedics will proceed with repair tomorrow. NPO at midnight. 06/24- Plan is for OR today at 0930. Mild hyperkalemia 5.2, sodium 134, glucose stabilized after some AM hypoglycemia. IVF started, will continue to monitor. 06/25- POD 1- Patient doing well with PT/OT. Pain control and DVT prophylaxis per orthopedics. Discussion of SNF vs HH is ongoing as patient is evaluated. Patient has been unable to void since removing the xie catheter. She is retaining urine. Xie was replaced. She may require urology consultation. Voiding trial tomorrow or next day pending ortho clearance for D/C. Encouraged Q2Hr incentive spirometry with patient and also discussed with nursing staff. 06/26 - POD 2 - Doing well. Cleared for dc per ortho, [facility] Xie was placed again due to urinary retention. Will provide urology follow up for her to see them in 7 days for xie removal and evaluation. (2) Type 1 diabetes mellitus: Code(s): E10.9 - Type 1 diabetes mellitus without complications Status: Acute Assessment and Plan: Patient is a brittle diabetic. 06/22? - Glucose>400. Patient appears quite dry, but is AO. CMP shows AG 0, CO2 26. - ABG showed pH 7.387, pCO2 33.8, HCO3 19.9, AG 4. UA showed 1+ ketones, 3+ glucose, Serum beta hydroxybutyrate 2.22 - 1L NS IVF bolus w/ 5U sq aspart -> 370. Add'l 1L NS + 5U sq aspart given. - started patient on 20meqK in .45NS/D5W at 100mL/ hr. - K stable at 3.6, continue to monitor. - Repeat labs to continue monitoring above. - Diabetic diet, resume home long acting 12U QHS, MDSS insulin with meals, accuchecks 06/23 - Patient hypoglycemic this AM, following protocol, improved now 133. - Will split lantus dosing to BID, patient appears to be brittle. - Continue to monitor and manage as above. 06/24. - late afternoon BG spiked to >400, patient was brought down overnight and is now in the low 1teens per nursing and fingersticks. Patient will remain NPO pending OR. Will continue to trend and adjust glucose as necessary. 06/25 - Blood sugars have been stable today. Continue current regimen as above, and continue to monitor. 06/26 -BS stable. Resume home medications on discharge. (3) Acute hypokalemia: Code(s): E87.6 - Hypokalemia Status: Acute Assessment and Plan: -resolved (4) Anemia: Code(s): D64.9 - Anemia, unspecified Status: Acute Assessment and Plan: 06/22 Patient suboptimal for surgical repair of the left hip. Surgery is requesting Hct of 30 prior to OR Transfuse 2 unit PRBCs. Repeat H& H after transfusion. 06/23 Hgb/Hct 11.4/34.1 today after 2 units PRBCs. Hemodynamically stable. Will continue to monitor. 06/25- Hgb/HCT down today, likely postoperative in nature. Patient is asymptomatic, VSS, will continue AM labs to monitor. 06/26 - Hgb stable. Stable for discharge. Repeat H/H in 3 days. (5) Acute hyponatremia: Code(s): E87.1 - Hypo-osmolality and hyponatremia Sta
[2022-06-26 11:42] LABS: Glucose Point of Care 130 mg/dl (65-105)
[2022-06-26 13:10] LABS: EDCOVIDSCREEN Negative (Negative)
[2022-06-27 11:08] LABS: Osmolality, Urine 473 mOsm/kg (50-1200)
== END 2022-06-26 13:45 | DRG 481 ==
LOC: ANHED 20:34 → ANH2MED 21:32
PROVIDERS: Orthopaedic Surgery; Physician Assistant; Student in an Organized Health Care Education/Training Program; Admitting Provider Student in an Organized Health Care Education/Training Program; Emergency Provider Emergency Medicine; PCP Internal Medicine; Visit Provider Internal Medicine
PROC: 0QS736Z Reposition Left Upper Femur with Intramedullary Internal Fixation Device, Percutaneous Approach (ICD-10-PCS; CPT 27245; principal; 2022-06-24 10:00)
DX: S72.142A Displaced intertrochanteric fracture of left femur, initial encounter for closed fracture (principal); E87.1 Hypo-osmolality and hyponatremia; C21.0 Malignant neoplasm of anus, unspecified; K52.0 Gastroenteritis and colitis due to radiation; W18.30XA Fall on same level, unspecified, initial encounter; I12.9 Hypertensive chronic kidney disease with stage 1 through stage 4 chronic kidney disease, or unspecified chronic kidney disease; E10.22 Type 1 diabetes mellitus with diabetic chronic kidney disease; N18.30 Chronic kidney disease, stage 3 unspecified; Z20.822 Contact with and (suspected) exposure to COVID-19; E87.6 Hypokalemia; E10.649 Type 1 diabetes mellitus with hypoglycemia without coma; D64.9 Anemia, unspecified; E78.5 Hyperlipidemia, unspecified; I25.10 Atherosclerotic heart disease of native coronary artery without angina pectoris; K21.9 Gastro-esophageal reflux disease without esophagitis; E87.5 Hyperkalemia; I73.9 Peripheral vascular disease, unspecified; F41.8 Other specified anxiety disorders; M06.9 Rheumatoid arthritis, unspecified; F17.210 Nicotine dependence, cigarettes, uncomplicated; I25.2 Old myocardial infarction; Z79.02 Long term (current) use of antithrombotics/antiplatelets; Z79.82 Long term (current) use of aspirin; Z95.5 Presence of coronary angioplasty implant and graft
CPT/HCPCS: 36415; 36430; 36600; 51702; 70450; 71045; 73502; 80048; 80053; 81001; 82010; 82803; 82805; 82948; 83036; 83935; 84132; 84300; 85025; 85610; 85730; 86850; 86900; 86901; 86920; 87040; 87086; 87426; 93005; 96361; 96374; 96375; 97110; 97116; 97161; 97530; 97535; 99199; 99285; A9270; C1713; C9803; J0360; J0690; J1100; J1815; J1885; J2250; J2270; J2405; J2704; J3010; J3480; J7030; J7040; J7120; P9016; U0003; U0005

== ENCOUNTER 2022-09-20 13:15 | Inpatient (IN) | payer OTHER, SELFPAY ==
[2022-09-20] VITALS (8 sets, daily range): BP systolic 148–176; BP diastolic 55–72; PULSE 66–86; RESP 18–20; TEMP 36.5–37; O2SAT 98–100; BMI 20.8
--- NOTE | ~2022-09-20 | CT_ITS ---
EXAMINATION: CT hip LT wo con DATE: 09/20/2022 17:30 INDICATION: Left hip pain. TECHNIQUE: Computed tomography (CT) of the left hip was performed without intravenous contrast. Autom ated exposure control and iterative reconstruction technique were employed. The dose-length product w as 144.09 mGy-cm. COMPARISON: Left hip radiographs 09/20/2022 06/21/2022, 07/24/2022 FINDINGS: There is a stent in left superficial femoral artery. There is widespread edema of the body fat. There is a comminuted intertrochanteric fracture of proximal left femur. Internal fixation is se en with antegrade intramedullary kortney, femoral head/neck screw, and distal interlocking screw. The barbara n distal fracture fragment demonstrates one cortical width posterior displacement. There is a nondisp laced oblique subtrochanteric fracture of proximal left femur anteriorly. There is mild left hip oste oarthritis. IMPRESSION: 1. Comminuted intertrochanteric fracture of proximal left femur with internal fixation. 2. Nondisplaced subtrochanteric periprosthetic fracture of proximal left femur anteriorly which may b e acute. 3. Mild left hip osteoarthritis. Reviewed, dictated and finalized at location A. IMPRESSION: 1. Comminuted intertrochanteric fracture of proximal left femur with internal f ixation. 2. Nondisplaced subtrochanteric periprosthetic fracture of proximal left femur anteriorly which may be acute. 3. Mild left hip osteoarthritis.
--- NOTE | ~2022-09-20 | XR_ITS ---
EXAMINATION: XR lumbar spine 2-3V DATE: 09/20/2022 14:52 INDICATION: Low back pain. Fall. TECHNIQUE: 3 views of lumbar spine were obtained. COMPARISON: PET CT 03/05/2022 FINDINGS: Bone alignment is normal. There is a compression fracture of L2 with less than 1/5 loss of height, new from 03/05/22. There is mildly decreased disc height at L2-L3. There are endplate osteophyt es at most levels. There is multilevel mild to moderate facet joint osteoarthritis. There is internal fixation of proximal left femur. There is a vascular stent in left inguinal region. IMPRESSION: 1. Age-indeterminate L2 compression fracture, new from 03/05/2022. 2. Mild lumbar spondylosis. Reviewed, dictated and finalized at location A.
--- NOTE | ~2022-09-20 | XR_ITS ---
EXAMINATION: XR hip LT min 2V DATE: 09/20/2022 14:21 INDICATION: Left hip injury. TECHNIQUE: 2 views of left hip were obtained. COMPARISON: Left hip radiograph 07/24/2022 FINDINGS: There is a comminuted intertrochanteric fracture of proximal left femur with internal fixat ion with antegrade intramedullary kortney, femoral head/neck screw, and distal interlocking screw. The ma in distal fracture fragment again demonstrates one cortical width posterior displacement. There is mi ld left hip osteoarthritis. There are vascular stents in left thigh. IMPRESSION: 1. Healing comminuted intertrochanteric fracture of proximal left femur with internal fixation. 2. Mild left hip osteoarthritis. Reviewed, dictated and finalized at location A. IMPRESSION: 1. Healing comminuted intertrochanteric fracture of proximal left femur with in ternal fixation. 2. Mild left hip osteoarthritis.
--- NOTE | 2022-09-20 14:48 | ED.LOWEXIN ---
HPI - Extremity Injury (Lower) General Chief Complaint: Extremity Injury, Lower Stated Complaint: left hip, back pain Time Seen by Provider: 09/20/22 13:33 History of Present Illness HPI Narrative: 62-year-old female with a history of hypertension, hyperlipidemia, depression, diabetes, and CHF who is 3 months status post total left hip repair presents to the emergency room complaints of left hip and lower back pain following a mechanical ground-level fall. Patient states that she was putting a blanket on the sofa when she lost her footing and fell, landing on her left hip and lower back. Patient states that she was nonambulatory following the injury. Related Data Home Medications Medication Instructions Recorded Confirmed aspirin 81 mg tablet,delayed 81 mg PO DAILY 04/19/22 09/20/22 release atorvastatin 40 mg tablet 40 mg PO QPM 04/19/22 09/20/22 clopidogrel 75 mg tablet 75 mg PO QAM 04/19/22 07/24/22 hydroxychloroquine 200 mg tablet 200 mg PO QAM 04/19/22 09/20/22 glimepiride 1 mg tablet 1 mg PO QPM 06/22/22 07/24/22 hydrocodone 5 mg-acetaminophen 325 1 - 2 tablet PO Q6H 06/22/22 07/24/22 mg tablet megestrol 20 mg tablet 20 mg PO DAILY 06/22/22 07/24/22 prochlorperazine maleate 10 mg See Rx Instructions .Route 06/22/22 07/24/22 tablet .COMPLEX PRN Nausea And Vomiting amlodipine 2.5 mg tablet 2.5 mg PO QAM 06/28/22 07/24/22 fluoxetine 20 mg capsule 20 mg PO QAM 06/28/22 07/24/22 morphine 15 mg tablet,extended 15 mg PO Q12H 06/28/22 07/24/22 release valacyclovir 500 mg tablet 500 mg PO QPM 06/28/22 07/24/22 Allergies Allergy/AdvReac Type Severity Reaction Status Date / Time Penicillins Allergy Intermediate hives Verified 09/20/22 15:45 Review of Systems Review of Systems: CONSTITUTIONAL: Denies fever, chills, or sweats. EYES: Denies visual changes, redness, or discharge. ENT: Denies rhinorrhea, congestion, sore throat, or otalgia. CARDIOVASCULAR: Denies chest pain, palpitations, or edema. RESPIRATORY: Denies cough or dyspnea. GASTROINTESTINAL: Denies abdominal pain, nausea, vomiting, or diarrhea. GENITOURINARY: Denies dysuria or hematuria. SKIN: Denies rash or itching. MUSCULOSKELETAL: Reports lower back pain, left hip pain NEUROLOGIC: Denies headache, numbness, dizziness, or weakness. PSYCHIATRIC: Denies anxiety or depression. PMFSH Past Medical History Medical History Anxiety and depression Breast implant capsular contracture CAD (coronary artery disease) Essential hypertension GERD (gastroesophageal reflux disease) HLD (hyperlipidemia) Hypertension Old myocardial infarction, greater than 8 weeks stents PAD (peripheral artery disease) Rheumatoid arthritis Surgical History Surgical History H/O rotator cuff surgery History of cardiovascular surgery History of cryosurgery Family History Family History Father Old age Mother Alcohol abuse Other Diabetes mellitus Gout Social History Social History Smoking packs per day: 1 Smoking cigarettes per day: 20.0 Years smoked: 50 Smoking pack-years: 50.00 Smoking status: Current every day smoker Tobacco type: cigarettes Second hand tobacco smoke exposure: Yes Alcohol intake: never Substance use: never Substance use type: does not use Gender identity (if verbalized by the patient): Female Sexual Orientation (if Verbalized by the Patient): Straight or Heterosexual Spiritual care concerns: No Exam Narrative: GENERAL: Well-appearing, well-nourished, no physical limitations, and in no acute distress. HEAD: Normocephalic, atraumatic. EYES: Conjunctivae normal, PERRLA and EOMI. CHEST: Clear to auscultation. No respiratory distress. No wheezes rales or rhonchi. HEART: Regular rate and rhythm. No murmu
[2022-09-20] MEDS: SODIUM CHLORIDE 0.9% IV 1,000 ML 150 ML IV CONT (15:42)
[2022-09-20] MEDS: HYDROmorphone HCL INJ (*CRX) 1 MG/ML SYR IV PUSH ×2 (15:43→21:18)
[2022-09-20 15:44] LABS: Hematocrit 28.6 % (37.0-47.0); Hemoglobin 9.2 g/dL (12.0-15.0); Mean Corpuscular HGB Conc 32.2 g/dl (32-36); Mean Corpuscular Hemoglobin 36.8 pg (26-34); Mean Corpuscular Volume 114.4 fl (80-100); Mean Platelet Volume 10.2 fl (7.4-10.4); Platelet Count Result 232 k/mm3 (150-375); White Blood Count 2.8 K/mm3 (4.5-10.0)
[2022-09-20 15:55] LABS: Partial Thromboplastin Time 22.9 SECONDS (22.3-36.8); Prothrombin Time 12.5 Seconds (11.1-14.7)
[2022-09-20 15:57] LABS: Alanine Aminotransferase 60 U/L (6-35); Albumin Level 2.3 g/dL (3.5-5.1); Alkaline Phosphatase 159 U/L (38-126); Anion Gap 5 mmol/L (8-16); Aspartate Amino Transferase 33 U/L (14-36); Bilirubin,Total 0.1 mg/dL (0.2-1.3); Blood Urea Nitrogen 35 mg/dL (7-17); Calcium 7.5 mg/dL (8.4-10.2); Carbon Dioxide 23 mmol/L (22-30); Chloride 106 mmol/L (98-107); Estimated CRCL calculation 28 ml/min; Estimated Glomerular Filt Rate 35; Glucose 344 mg/dL (65-110); Potassium 4.5 mmol/L (3.4-5.0); Sodium 134 mmol/L (137-145)
[2022-09-20 16:16] LABS: Anisocytosis 2+ (NORMAL); Band Neutrophils Percent 2 % (0-6); Lymphocytes Absolute Manual 0.64 K/mm3 (1.1-4.5); Monocytes Absolute Manual 0.44 K/mm3 (0.1-0.90); Monocytes Percent Manual 16 % (3-9); Neutrophils Percent Manual 59 % (46-73); Platelet Estimate Adequate (Adequate); Schistocytes None Seen (NORMAL); Total Cells Counted 100
--- NOTE | 2022-09-20 16:37 | PM.IMHP ---
H&P: HPI History of Present Illness Date/Time: 09/20/22 16:37 Chief Complaint: fall Narrative: this is a 62-year-old female patient who had a left hip trochanter nail placed on 06/24/[address] hemphill. The patient has been going through rehab at home. However today the patient was folding up a blanket and lost her balance and fell on her left hip. It was a mechanical fall. She had no dizziness or chest pain no syncopal episode. She did not lose consciousness. She has a history of hypertension, hyperlipidemia, depression and diabetes as well as congestive heart failure. The patient denies hitting her head. She has skin tears to her left upper arm. She is not on any anticoagulation. The patient stated that she is not able to ambulate on that left leg. Hip x-ray was read as healing comminuted intertrochanteric fracture proximal left femur with internal fixation. Mild left hip osteoarthritis. However when I came into the room it looks like the left hip was externally rotated and shortened. I ordered a CT scan which was read as comminuted intratrochanteric fracture of proximal left femur with internal fixation. Nondisplaced subtrochanteric periprosthetic fracture of proximal left femur anteriorly which may be acute. Mild left hip osteoarthritis. A consult was placed for Dr. Hemphill. The patient was given Dilaudid in the emergency room. She was also given IV fluids. Her white count is 2.8. Her H&H is 9.2 and 28.6. This is slightly better than her last H&H of 8.6 and 28.6. Patient's blood sugars were 344 and then 374. Creatinine is 1.5 which is her baseline. A1c was 7.6 today. Calcium level 7.5.I applied Steri-Strips to her skin tears on her left upper arm. The patient is being admitted to observation status on the date of service of 09/20/2022. Review of Systems Review of Systems: See HPI All systems reviewed & are unremarkable except as noted in HPI and below Constitutional: Constitutional: Reports as per HPI and Reports no additional constitutional complaints Eyes: Eyes: Reports as per HPI and Reports no additional eye complaints ENT: Reports system reviewed and no additional complaints, except as documented and Reports Normal hearing present Cardiovascular: Cardiovascular: Reports no additional cardiovascular complaints Respiratory: Respiratory: Reports no additional respiratory complaints and Reports no additional respiratory complaints Gastrointestinal: Gastrointestinal: Reports as per HPI and Reports no additional gastrointestinal complaints Musculoskeletal: Musculoskeletal: Reports no additional musculoskeletal complaints Integumentary/Breasts: Skin/Breast: Reports system reviewed and no additional complaints, except as docu and Reports as per HPI Neurologic: Reports system reviewed and no additional complaints, except as documented, Reports as per HPI and Reports Normal hearing present Psychiatric: Psychiatric: Reports no additional psychiatric complaints and Reports as per HPI Endocrine: Endocrine: Reports no additional endocrine complaints Hematologic/Lymphatic: Hematologic/Lymphatic: Reports no additional hematologic/lymphatic complaints Allergic/Immunologic: Allergic/Immunologic: Reports no additional allergic/immunologic complaints [facility] Past Medical History Medical History (Updated 09/20/22 @ 22:50 by Judy Limon NP) Anxiety and depression Breast implant capsular contracture CAD (coronary artery disease) Chronic renal failure Diabetes Essential hypertension GERD (gastroesophageal reflux disease) History of rectal or anal cancer chemo , radiation HLD (hyperlipidemia) Hypertension Old myocardial infarction, greater than 8 weeks stents PAD (peripheral artery disease) Port-A-Cath in place Rheumatoid arthritis Tobacco abuse Surgical History Surgical History H/O heart artery stent H/O rotator cuff surgery History of cardi
[2022-09-20 17:19] LABS: Glucose Point of Care 348 mg/dl (65-105)
[2022-09-20 17:41] LABS: Hemoglobin A1C 7.6 % (<5.7)
[2022-09-20 18:07] LABS: Glucose Point of Care 374 mg/dl (65-105)
[2022-09-20] MEDS: INSULIN ASPART (*BKC) 100 UNITS/ML SUB-Q (18:07)
--- NOTE | 2022-09-20 18:07 | ADMGEN ---
This patient, Janice Rodgers, was admitted to [facility] Surg Room 314-01. Patient/family oriented to hospital policies and general routines including ID bracelet, bed and alarms, visiting hours, pain management, procedures, bathroom and other care routines, personal items, smoking policy, room service/diet, and visiting hours. Information on how to activate the Rapid Response Team has been discussed. Patient/Family are encouraged to report perceived risks to care and to ask questions if they do not understand what they are told or what they should do.
[2022-09-20] MEDS: NICOTINE (*PBKC) 21 MG PATCH 1 PATCH TRANSDERM (18:51)
[2022-09-20] MEDS: CENTRAL LINE FLUSH 10 ML IV PUSH (21:13)
[2022-09-20 21:33] LABS: Glucose Point of Care 255 mg/dl (65-105)
[2022-09-20] MEDS: METOPROLOL TARTRATE 12.5 MG TABLET 37.5 MG PO (23:17)
[2022-09-20] MEDS: ATORVASTATIN 40 MG TABLET PO (23:18)
[2022-09-20 23:27] LABS: Add Urine Microscopic? YES; Appearance Urine Clear (Clear); Bilirubin Urine Negative (Negative); Blood Urine Negative (Negative); Color Urine Yellow (Yellow); Glucose Urine UA 3+ mg/dL (Negative); Ketones Urine Negative (Negative); Leukocyte Esterase Ur Negative LEU/UL (Negative); Nitrate Urine Negative (Negative); Protein Urine 3+ mg/dL (Negative); RBC Urine 0-2 /hpf (0-2); Specific Grav Ur 1.018 (1.001-1.035); Urobilinogen Urine Negative mg/dL (<2.0); WBC Urine 0-3 /hpf
[2022-09-21] VITALS (8 sets, daily range): BP systolic 142–183; BP diastolic 55–79; PULSE 63–78; RESP 18–20; TEMP 36.1–36.5; O2SAT 96–100
[2022-09-21 00:01] LABS: Sodium Urine Random 51 meq/L
[2022-09-21] MEDS: HYDROmorphone HCL INJ (*CRX) 1 MG/ML SYR IV PUSH ×4 (00:59→16:55)
[2022-09-21] MEDS: CENTRAL LINE FLUSH 10 ML IV PUSH ×3 (04:54→20:56)
[2022-09-21 05:28] LABS: Alanine Aminotransferase 55 U/L (6-35); Albumin Level 2.2 g/dL (3.5-5.1); Alkaline Phosphatase 157 U/L (38-126); Anion Gap 3 mmol/L (8-16); Aspartate Amino Transferase 35 U/L (14-36); Bilirubin,Total 0.1 mg/dL (0.2-1.3); Blood Urea Nitrogen 31 mg/dL (7-17); Calcium 7.3 mg/dL (8.4-10.2); Carbon Dioxide 23 mmol/L (22-30); Chloride 108 mmol/L (98-107); Estimated CRCL calculation 32 ml/min; Estimated Glomerular Filt Rate 35; Glucose 348 mg/dL (65-110); Magnesium 1.8 mg/dL (1.6-2.3); Potassium 4.5 mmol/L (3.4-5.0); Sodium 134 mmol/L (137-145)
[2022-09-21 06:26] LABS: Basophils Percent Auto 0.7 % (0.2-1.2); Eosinophils Absolute Auto 0.1 K/mm3 (0-0.3); Eosinophils Percent Auto 2.1 % (0-4.4); Hematocrit 23.4 % (37.0-47.0); Hemoglobin 7.4 g/dL (12.0-15.0); Immature Granulocyte Absolute 0.02 K/mm3 (0.00-0.031); Immature Granulocyte Percent A 0.7 % (0-0.5); Mean Corpuscular HGB Conc 31.6 g/dl (32-36); Mean Corpuscular Hemoglobin 35.7 pg (26-34); Mean Platelet Volume 10.1 fl (7.4-10.4); Monocytes Absolute Auto 0.8 K/mm3 (0.1-0.6); Monocytes Percent Auto 26.2 % (2.6-8.5); Neutrophils Absolute Auto 1.4 K/mm3 (1.3-6.7); Neutrophils Percent Auto 49.3 % (45.5-73.1); Platelet Count Result 242 k/mm3 (150-375); Red Blood Count 2.07 M/mm3 (4.2-5.4); Red Cell Distribution Width 17.6 % (11.5-14.5); White Blood Count 2.9 K/mm3 (4.5-10.0)
[2022-09-21 07:45] LABS: Free T4 Free Thyroxine Reflex 0.92 ng/dL (0.78-2.19)
[2022-09-21 08:03] LABS: Glucose Point of Care 368 mg/dl (65-105)
[2022-09-21] MEDS: METOPROLOL TARTRATE 12.5 MG TABLET 37.5 MG PO ×2 (08:16→20:55)
[2022-09-21] MEDS: amLODIPine BESYLATE 5 MG TABLET 10 MG PO (08:16)
[2022-09-21] MEDS: NICOTINE (*PBKC) 21 MG PATCH 1 PATCH TRANSDERM (08:16)
[2022-09-21] MEDS: POTASSIUM CHLORIDE 10 MEQ TABLET.ER PO (08:17)
[2022-09-21] MEDS: hydrALAZINE HCL 25 MG TABLET PO ×4 (08:17→20:55)
[2022-09-21] MEDS: HYDROXYCHLOROQUINE SULFATE 200 MG TABLET PO (08:17)
[2022-09-21] MEDS: FLUoxetine HCL 20 MG CAPSULE PO (08:17)
[2022-09-21] MEDS: ASPIRIN 81 MG ENTERIC TABLET PO (08:17)
[2022-09-21] MEDS: FUROSEMIDE 40 MG TABLET PO ×2 (08:17→16:56)
[2022-09-21] MEDS: MEGESTROL ACETATE (*CHEMO) 20 MG TABLET PO (08:17)
[2022-09-21] MEDS: CLOPIDOGREL BISULFATE 75 MG TABLET PO (08:17)
[2022-09-21] MEDS: INSULIN ASPART (*BKC) 100 UNITS/ML SUB-Q ×3 (08:18→23:01)
--- NOTE | 2022-09-21 09:59 | PM.CNOR ---
Assessment and Plan Assessment and plan (1) Periprosthetic fracture around internal prosthetic left hip joint, initial encounter: Code(s): M97.02XA - Periprosthetic fracture around internal prosthetic left hip joint, initial encounter Status: Acute Assessment and Plan: New injury 2 days ago, fall from standing height. Left thigh pain. CT scan shows new nondisplaced fracture of the proximal femur with the intramedullary kortney in place. Discussed with patient. Fracture is nondisplaced. Stabilized by internal fixation already in place. Plan conservative care with pain control, PT/OT. Ambulate with assistance and a walker. Weight bear as tolerated. Discussed healing time of for approximately 6 weeks with the patient. We will continue to follow. History of Present Illness HPI Consult date: 09/21/22 Requesting physician: Judy Limon NP Consult reason: fracture Chief complaint: left femur fracture Narrative: 62-year-old woman known to the Orthopedic service for previous left proximal femur fracture treated with intramedullary kortney fixation 3 months ago. Patient was at home and states her activity level was improving. She discontinued use of the walker. She was doing some house cleaning when she lost her balance and fell onto her left side. This occurred 2 days ago. She states she got into bed and waited for the pain to improve but was unable to transition from bed. Complains of low back pain and left leg pain. Weakness with movement and inability to bear weight. Denies numbness or tingling. Review of Systems Constitutional: Constitutional: Denies fever(s) Eyes: Eyes: Denies blurry vision ENT: Reports Normal hearing present Cardiovascular: Cardiovascular: Denies chest pain and Denies dyspnea Respiratory: Respiratory: Denies dyspnea and Denies wheezing Gastrointestinal: Gastrointestinal: Denies abdominal pain Genitourinary: Genitourinary: Denies urinary urgency Musculoskeletal: Musculoskeletal: Reports as per HPI and Denies numbness Integumentary/Breasts: Skin/Breast: Denies changing lesions and Denies sores Neurologic: Reports Normal hearing present, Denies behavioral changes, Denies confusion, Denies numbness and Denies convulsions Psychiatric: Psychiatric: Denies behavioral changes, Denies confusion and Denies hallucinations Endocrine: Endocrine: Denies heat intolerance Hematologic/Lymphatic: Hematologic/Lymphatic: Denies easy bleeding Allergic/Immunologic: Allergic/Immunologic: Denies wheezing PMFSH Past Medical History Medical History Anxiety and depression Breast implant capsular contracture CAD (coronary artery disease) Chronic renal failure Diabetes Essential hypertension GERD (gastroesophageal reflux disease) History of rectal or anal cancer chemo , radiation HLD (hyperlipidemia) Hypertension Old myocardial infarction, greater than 8 weeks stents PAD (peripheral artery disease) Port-A-Cath in place Rheumatoid arthritis Tobacco abuse Surgical History Surgical History H/O heart artery stent H/O rotator cuff surgery History of cardiovascular surgery History of cryosurgery Family History Family History Father Old age Mother Alcohol abuse Other Diabetes mellitus Gout Social History Social History Social History: the patient continues to smoke cigarettes approximately 1 and half packs of cigarettes a day. The patient lives with her and has 2 children. The patient denies any alcohol but she does use THC oil. The patient is currently not working. She was working at [employer]. Her is the durable power patent attorney for healthcare. Code status full code Smoking packs per day: 1.5 Smoking cigarettes per day: 30.
[2022-09-21 11:01] LABS: Total Triiodothyronine (T3) 0.67 NG/ML (0.97-1.69)
[2022-09-21 11:40] LABS: Glucose Point of Care 296 mg/dl (65-105)
--- NOTE | 2022-09-21 14:24 | P.PNIM_ITS ---
Progress Note: A&P Assessment and Plan (1) Periprosthetic fracture around internal prosthetic left hip joint, initial encounter: Code(s): M97.02XA - Periprosthetic fracture around internal prosthetic left hip joint, initial encounter Status: Acute Assessment and Plan: * Imaging shows a comminuted intertrochanteric fx of proximal left femur with internal fixation. * Continue pain meds. * Dr. Payne consulted and advised to do PT/OT, pain management and conservative measures. * Nesbitt to gravity at this time. * Awaiting PT eval. (2) Hypertension: Code(s): I10 - Essential (primary) hypertension Status: Acute Assessment and Plan: * Currently stable BP * Continue current home medications. (3) Diabetes: Code(s): E11.9 - Type 2 diabetes mellitus without complications Status: Acute Assessment and Plan: * A1C is 7.6. * Continue Glucose checks AC and HS and SSI. Adjust SSI as needed. * Diabetic diet * Continue Glimeperide (4) Chronic renal failure: Code(s): N18.9 - Chronic kidney disease, unspecified Status: Acute Assessment and Plan: * Stable and at baseline. * No DESIREE identified. * Continue to monitor. (5) Tobacco abuse: Code(s): Z72.0 - Tobacco use Status: Chronic Assessment and Plan: * Continue Nicotine Patch (6) Anemia: Code(s): D64.9 - Anemia, unspecified Status: Acute Assessment and Plan: * Etiology uncertain, possible dilutional vs. chronic disease from renal status. * Monitor with labs. * + Hx of rectal CA. Will order occult stool. (7) Acute hyponatremia: Code(s): E87.1 - Hypo-osmolality and hyponatremia Status: Acute Assessment and Plan: * Interval improvement. * Continue to monitor. (8) CKD (chronic kidney disease): Code(s): N18.9 - Chronic kidney disease, unspecified Status: Chronic Assessment and Plan: * At baseline renal function. (9) Rheumatoid arthritis: Code(s): M06.9 - Rheumatoid arthritis, unspecified Status: Chronic Assessment and Plan: * Continue Hydroxychloroquine (10) Anxiety and depression: Code(s): F41.9 - Anxiety disorder, unspecified; F32.A - Depression, unspecified Status: Chronic Assessment and Plan: * Continue home meds. Plan -The patient is on Plavix and aspirin for unknown reasons. Subjective Date/time seen: 09/21/22 3333 this patient was examined at the bedside today in interval assessment after sustaining a mechanical ground level fall last evening. she had an intramedullary kortney placed into her left femur 3 months ago. She had been improving with her activity level at home and had even started walking without the aid of a walker. After presenting to the emergency room last evening it was discovered that patient has a new, nondisplaced fracture of the proximal femur with intramedullary kortney still in place. With repeat X consulted stay and d iscussed with patient is in the plan is for conservative care with pain control, physical therapy, occupational therapy, ambulate with assistance and a walker, weight-bearing as tolerated and she was advised it will take approximately 6 weeks for the patient to heal. At this point we are awaiting Physical therapy's evaluation to make recommendations for further placement versus discharge. Patient has no new symptoms of saddle anesthesia, radiculopathy and no loss of bowel or bladder control. Review of S
--- NOTE | 2022-09-21 14:24 | PM.IMPN ---
Progress Note: A&P Assessment and Plan (1) Periprosthetic fracture around internal prosthetic left hip joint, initial encounter: Code(s): M97.02XA - Periprosthetic fracture around internal prosthetic left hip joint, initial encounter Status: Acute Assessment and Plan: Imaging shows a comminuted intertrochanteric fx of proximal left femur with internal fixation. Continue pain meds. Dr. Payne consulted and advised to do PT/OT, pain management and conservative measures. Nesbitt to gravity at this time. Awaiting PT eval. (2) Hypertension: Code(s): I10 - Essential (primary) hypertension Status: Acute Assessment and Plan: Currently stable BP Continue current home medications. (3) Diabetes: Code(s): E11.9 - Type 2 diabetes mellitus without complications Status: Acute Assessment and Plan: A1C is 7.6. Continue Glucose checks AC and HS and SSI. Adjust SSI as needed. Diabetic diet Continue Glimeperide (4) Chronic renal failure: Code(s): N18.9 - Chronic kidney disease, unspecified Status: Acute Assessment and Plan: Stable and at baseline. No DESIREE identified. Continue to monitor. (5) Tobacco abuse: Code(s): Z72.0 - Tobacco use Status: Chronic Assessment and Plan: Continue Nicotine Patch (6) Anemia: Code(s): D64.9 - Anemia, unspecified Status: Acute Assessment and Plan: Etiology uncertain, possible dilutional vs. chronic disease from renal status. Monitor with labs. + Hx of rectal CA. Will order occult stool. (7) Acute hyponatremia: Code(s): E87.1 - Hypo-osmolality and hyponatremia Status: Acute Assessment and Plan: Interval improvement. Continue to monitor. (8) CKD (chronic kidney disease): Code(s): N18.9 - Chronic kidney disease, unspecified Status: Chronic Assessment and Plan: At baseline renal function. (9) Rheumatoid arthritis: Code(s): M06.9 - Rheumatoid arthritis, unspecified Status: Chronic Assessment and Plan: Continue Hydroxychloroquine (10) Anxiety and depression: Code(s): F41.9 - Anxiety disorder, unspecified; F32.A - Depression, unspecified Status: Chronic Assessment and Plan: Continue home meds. Plan -The patient is on Plavix and aspirin for unknown reasons. Subjective Date/time seen: 09/21/22 0840 this patient was examined at the bedside today in interval assessment after sustaining a mechanical ground level fall last evening. she had an intramedullary kortney placed into her left femur 3 months ago. She had been improving with her activity level at home and had even started walking without the aid of a walker. After presenting to the emergency room last evening it was discovered that patient has a new, nondisplaced fracture of the proximal femur with intramedullary kortney still in place. With repeat X consulted stay and discussed with patient is in the plan is for conservative care with pain control, physical therapy, occupational therapy, ambulate with assistance and a walker, weight-bearing as tolerated and she was advised it will take approximately 6 weeks for the patient to heal. At this point we are awaiting Physical therapy's evaluation to make recommendations for further placement versus discharge. Patient has no new symptoms of saddle anesthesia, radiculopathy and no loss of bowel or bladder control. Review of Systems Review of Systems: All systems reviewed & are unremarkable except as noted in HPI and below Exam Const: General: uncomfortable ( Secondary to pain) HENMT: Mouth: Yes moist mucous membranes Eyes: General: appearance normal, both eyes and all related structures Neck: Neck: supple and no JVD Resp: Effort & Inspection: normal respiratory effort Auscultation: clear to auscultation bilaterally Cardio: Rate: regular rate Rhythm: regu
[2022-09-21 16:35] LABS: Glucose Point of Care 175 mg/dl (65-105)
[2022-09-21] MEDS: valACYclovir HCL 500 MG TABLET PO (17:00)
[2022-09-21] MEDS: ATORVASTATIN 40 MG TABLET PO (17:00)
[2022-09-21] MEDS: GLIMEPIRIDE 1 MG TABLET PO (17:01)
[2022-09-21] MEDS: diphenhydrAMINE HCl CAP 25 MG CAPSULE PO (20:55)
[2022-09-21 22:38] LABS: Glucose Point of Care 324 mg/dl (65-105)
[2022-09-22] VITALS (17 sets, daily range): BP systolic 149–188; BP diastolic 58–77; PULSE 71–86; RESP 14–20; TEMP 36.1–37.2; O2SAT 93–100
[2022-09-22] MEDS: CENTRAL LINE FLUSH 10 ML IV PUSH (05:20)
[2022-09-22 05:30] LABS: Basophils Percent Auto 0.8 % (0.2-1.2); Eosinophils Absolute Auto 0.1 K/mm3 (0-0.3); Eosinophils Percent Auto 1.9 % (0-4.4); Hematocrit 21.1 % (37.0-47.0); Immature Granulocyte Absolute 0.01 K/mm3 (0.00-0.031); Immature Granulocyte Percent A 0.4 % (0-0.5); Lymphocytes Absolute Auto 0.55 K/mm3 (0.9-3.2); Mean Corpuscular HGB Conc 31.8 g/dl (32-36); Mean Corpuscular Hemoglobin 37.4 pg (26-34); Mean Corpuscular Volume 117.9 fl (80-100); Mean Platelet Volume 10.1 fl (7.4-10.4); Monocytes Absolute Auto 0.6 K/mm3 (0.1-0.6); Monocytes Percent Auto 22.1 % (2.6-8.5); Neutrophils Absolute Auto 1.4 K/mm3 (1.3-6.7); Neutrophils Percent Auto 53.8 % (45.5-73.1); Platelet Count Result 213 k/mm3 (150-375); Red Blood Count 1.79 M/mm3 (4.2-5.4); Red Cell Distribution Width 17.5 % (11.5-14.5); White Blood Count 2.6 K/mm3 (4.5-10.0)
[2022-09-22 05:38] LABS: Hemoglobin 6.7 g/dL (12.0-15.0)
[2022-09-22 05:51] LABS: Alanine Aminotransferase 69 U/L (6-35); Albumin Level 2.2 g/dL (3.5-5.1); Alkaline Phosphatase 150 U/L (38-126); Anion Gap 9 mmol/L (8-16); Aspartate Amino Transferase 93 U/L (14-36); Bilirubin,Total 0.1 mg/dL (0.2-1.3); Blood Urea Nitrogen 34 mg/dL (7-17); Calcium 7.3 mg/dL (8.4-10.2); Carbon Dioxide 24 mmol/L (22-30); Chloride 102 mmol/L (98-107); Estimated CRCL calculation 29 ml/min; Estimated Glomerular Filt Rate 30; Glucose 526 mg/dL (65-110); Magnesium 1.7 mg/dL (1.6-2.3); Potassium 4.4 mmol/L (3.4-5.0); Sodium 135 mmol/L (137-145)
[2022-09-22] MEDS: INSULIN ASPART (*BKC) 100 UNITS/ML 10 UNITS SUB-Q ×3 (06:23→12:06)
[2022-09-22 08:04] LABS: Glucose Point of Care 460 mg/dl (65-105)
[2022-09-22] MEDS: ASPIRIN 81 MG ENTERIC TABLET PO (09:01)
[2022-09-22] MEDS: MEGESTROL ACETATE (*CHEMO) 20 MG TABLET PO (09:01)
[2022-09-22] MEDS: FLUoxetine HCL 20 MG CAPSULE PO (09:01)
[2022-09-22] MEDS: HYDROXYCHLOROQUINE SULFATE 200 MG TABLET PO (09:01)
[2022-09-22] MEDS: METOPROLOL TARTRATE 12.5 MG TABLET 37.5 MG PO ×2 (09:01→20:42)
[2022-09-22] MEDS: amLODIPine BESYLATE 5 MG TABLET 10 MG PO (09:02)
[2022-09-22] MEDS: FUROSEMIDE 40 MG TABLET PO ×2 (09:02→17:19)
[2022-09-22] MEDS: POTASSIUM CHLORIDE 10 MEQ TABLET.ER PO (09:02)
[2022-09-22] MEDS: ENOXAPARIN 40 MG/0.4 ML SYRINGE SUB-Q (09:02)
[2022-09-22] MEDS: NICOTINE (*PBKC) 21 MG PATCH 1 PATCH TRANSDERM (09:02)
[2022-09-22] MEDS: hydrALAZINE HCL 25 MG TABLET PO ×4 (09:02→20:42)
[2022-09-22] MEDS: CLOPIDOGREL BISULFATE 75 MG TABLET PO (09:02)
[2022-09-22] MEDS: SODIUM CHLORIDE 0.9% IV 250 ML 30 ML IV CONT (11:15)
[2022-09-22 11:34] LABS: Glucose Point of Care 433 mg/dl (65-105)
[2022-09-22] MEDS: TUBING, BLOOD PLUM PUMP TUBING 1 EACH XX (11:37)
--- NOTE | 2022-09-22 12:07 | PCOTNOTE ---
Attempted to see pt for occupational therapy tx, however, pt refused. Pt was currently eating and receiving a blood transfusion at the same time. Pt expressed I don't think I am going to be able to do therapy today. Pt was educated on the importance/benefits of continued therapy participation for independence. RN was present in room, when pt refused to participate in therapy. Will attempt at a later time today.
[2022-09-22] MEDS: HYDROmorphone HCL INJ (*CRX) 1 MG/ML SYR IV PUSH (13:11)
--- NOTE | 2022-09-22 13:45 | PCPTNOTE ---
Attempted Physical Therapy treatment at 0945, 1048, and 1335. Patient declined all attempts stating in the morning that she was going to be getting blood today, and on last attempt patient was currently receiving blood.
--- NOTE | 2022-09-22 13:59 | P.PNIM_ITS ---
Progress Note: A&P Assessment and Plan (1) Periprosthetic fracture around internal prosthetic left hip joint, initial encounter: Code(s): M97.02XA - Periprosthetic fracture around internal prosthetic left hip joint, initial encounter Status: Acute Assessment and Plan: * Imaging shows a comminuted intertrochanteric fx of proximal left femur with internal fixation. * Continue pain meds. * Dr. Payne consulted and advised to do PT/OT, pain management and conservative measures. * Nesbitt to gravity at this time. * PT eval made and they are recommending continued PT treatment and eval. (2) Hypertension: Code(s): I10 - Essential (primary) hypertension Status: Chronic Assessment and Plan: * Currently stable BP * Continue current home medications. (3) Diabetes: Code(s): E11.9 - Type 2 diabetes mellitus without complications Status: Chronic Assessment and Plan: * A1C is 7.6. * Continue Glucose checks AC and HS and SSI. Adjust SSI as needed. * Diabetic diet * Glimeperide is discontinued at this time, SSI is increased to High dose SSI, and Lantus 9 units HS is initiated. (4) Chronic renal failure: Code(s): N18.9 - Chronic kidney disease, unspecified Status: Chronic Assessment and Plan: * Stable and at baseline. * No DESIREE identified. * Continue to monitor. (5) Tobacco abuse: Code(s): Z72.0 - Tobacco use Status: Chronic Assessment and Plan: * Continue Nicotine Patch (6) Anemia: Code(s): D64.9 - Anemia, unspecified Status: Acute Assessment and Plan: * Etiology uncertain, possible dilutional vs. chronic disease from renal status. * Hgb this AM is further decreased as follows: 9.2-->7.4-->6.7. Pt transfused 2 units PRBC's. * Monitor with labs. * + Hx of rectal CA. * Stool occult blood is collected and is in progress. * Anemia panel ordered. (7) Acute hyponatremia: Code(s): E87.1 - Hypo-osmolality and hyponatremia Status: Resolved Assessment and Plan: * Stable Sodium at 135. (8) CKD (chronic kidney disease): Code(s): N18.9 - Chronic kidney disease, unspecified Status: Chronic Assessment and Plan: * At baseline renal function. (9) Rheumatoid arthritis: Code(s): M06.9 - Rheumatoid arthritis, unspecified Status: Chronic Assessment and Plan: * Continue Hydroxychloroquine (10) Anxiety and depression: Code(s): F41.9 - Anxiety disorder, unspecified; F32.A - Depression, unspecified Status: Chronic Assessment and Plan: * Continue home meds. Time Spent With Patient Time with patient: 15 - 25 minutes Subjective Date/time seen: 09/22/22 0830 This pt. is examined at the bedside today in interval assessment. She has a flat affect today. She has well controlled pain. PT has evaluated and has made recommendations. She will need continued PT for strengthening and for Gait training. Pt has low Hgb today at 6.7 and is receiving 2 units PRBC's. She has no overt bleeding and no hematoma formation on the leg. Stool for occult blood is collected and is pending. If positive, will involve GI. No GI complaints of nausea, vomiting, diarrhea and no abdominal pain. Pt's glucose is grossly elevated today at 526. Her Glimeperide is stopped, her insulin is incrased to high dose SSI, and Lantus is initiated at 9 units HS starting tonight. Will further uptitrate the Lantus and also add mealtime to SSI as needed. Will trend
--- NOTE | 2022-09-22 13:59 | PM.IMPN ---
Progress Note: A&P Assessment and Plan (1) Periprosthetic fracture around internal prosthetic left hip joint, initial encounter: Code(s): M97.02XA - Periprosthetic fracture around internal prosthetic left hip joint, initial encounter Status: Acute Assessment and Plan: Imaging shows a comminuted intertrochanteric fx of proximal left femur with internal fixation. Continue pain meds. Dr. Payne consulted and advised to do PT/OT, pain management and conservative measures. Nesbitt to gravity at this time. PT eval made and they are recommending continued PT treatment and eval. (2) Hypertension: Code(s): I10 - Essential (primary) hypertension Status: Chronic Assessment and Plan: Currently stable BP Continue current home medications. (3) Diabetes: Code(s): E11.9 - Type 2 diabetes mellitus without complications Status: Chronic Assessment and Plan: A1C is 7.6. Continue Glucose checks AC and HS and SSI. Adjust SSI as needed. Diabetic diet Glimeperide is discontinued at this time, SSI is increased to High dose SSI, and Lantus 9 units HS is initiated. (4) Chronic renal failure: Code(s): N18.9 - Chronic kidney disease, unspecified Status: Chronic Assessment and Plan: Stable and at baseline. No DESIREE identified. Continue to monitor. (5) Tobacco abuse: Code(s): Z72.0 - Tobacco use Status: Chronic Assessment and Plan: Continue Nicotine Patch (6) Anemia: Code(s): D64.9 - Anemia, unspecified Status: Acute Assessment and Plan: Etiology uncertain, possible dilutional vs. chronic disease from renal status. Hgb this AM is further decreased as follows: 9.2-->7.4-->6.7. Pt transfused 2 units PRBC's. Monitor with labs. + Hx of rectal CA. Stool occult blood is collected and is in progress. Anemia panel ordered. (7) Acute hyponatremia: Code(s): E87.1 - Hypo-osmolality and hyponatremia Status: Resolved Assessment and Plan: Stable Sodium at 135. (8) CKD (chronic kidney disease): Code(s): N18.9 - Chronic kidney disease, unspecified Status: Chronic Assessment and Plan: At baseline renal function. (9) Rheumatoid arthritis: Code(s): M06.9 - Rheumatoid arthritis, unspecified Status: Chronic Assessment and Plan: Continue Hydroxychloroquine (10) Anxiety and depression: Code(s): F41.9 - Anxiety disorder, unspecified; F32.A - Depression, unspecified Status: Chronic Assessment and Plan: Continue home meds. Time Spent With Patient Time with patient: 15 - 25 minutes Subjective Date/time seen: 09/22/22 4330 This pt. is examined at the bedside today in interval assessment. She has a flat affect today. She has well controlled pain. PT has evaluated and has made recommendations. She will need continued PT for strengthening and for Gait training. Pt has low Hgb today at 6.7 and is receiving 2 units PRBC's. She has no overt bleeding and no hematoma formation on the leg. Stool for occult blood is collected and is pending. If positive, will involve GI. No GI complaints of nausea, vomiting, diarrhea and no abdominal pain. Pt's glucose is grossly elevated today at 526. Her Glimeperide is stopped, her insulin is incrased to high dose SSI, and Lantus is initiated at 9 units HS starting tonight. Will further uptitrate the Lantus and also add mealtime to SSI as needed. Will trend Hgb. Review of Systems Review of Systems: All systems reviewed & are unremarkable except as noted in HPI and below Exam Const: General: comfortable HENMT: Mouth: Yes moist mucous membranes Eyes: General: appearance normal, both eyes and all related structures Neck: Neck: supple and no JVD Resp: Effort & Inspection: normal respiratory effort Auscultation: clear to auscultation bilaterally Cardio: Rate: regular rate Rhythm: regular r
[2022-09-22 14:18] LABS: IFOB Positive Control Positive; Immunochemical Fecal Occult Bl Negative (N)
--- NOTE | 2022-09-22 14:24 | PCOTNOTE ---
Attempted to complete OT treatment this PM for 2nd attempt. Pt declined to participate in therapeutic activities, self care tasks, and/or Strengthening exercises. Pt was educated on the benefits of participation in therapy for independence with daily occupations. Pt continued to refuse stating I will try tomorrow . Will continue per poc duration/frequency tomorrow.
[2022-09-22 16:40] LABS: Glucose Point of Care 232 mg/dl (65-105)
[2022-09-22] MEDS: INSULIN ASPART (*BKC) 100 UNITS/ML SUB-Q (17:19)
[2022-09-22] MEDS: valACYclovir HCL 500 MG TABLET PO (17:20)
[2022-09-22] MEDS: ATORVASTATIN 40 MG TABLET PO (17:21)
[2022-09-22 18:18] LABS: Iron 56 ug/dL (37-170)
[2022-09-22 18:26] LABS: Transferrin 156 mg/dL (206-381)
[2022-09-22 18:29] LABS: Percent Iron Saturation 31 % (20-50)
[2022-09-22 19:26] LABS: Folic Acid 5.3 ng/mL (2.76->20)
[2022-09-22] MEDS: traMADol HCL (*CRX) 25 MG TABLET PO (19:55)
[2022-09-22] MEDS: INSULIN GLARGINE (*BKC) 100 UNITS/ML 9 UNITS SUB-Q (20:43)
[2022-09-22 20:48] LABS: Glucose Point of Care 255 mg/dl (65-105)
[2022-09-22 22:38] LABS: Hemoglobin 10.8 g/dL (12.0-15.0)
[2022-09-23] VITALS (8 sets, daily range): BP systolic 160–184; BP diastolic 69–88; PULSE 70–78; RESP 16–20; TEMP 36.3–36.9; O2SAT 97–100; BMI 20.8
[2022-09-23 05:23] LABS: Hematocrit 34.3 % (37.0-47.0); Hemoglobin 11.6 g/dL (12.0-15.0); Mean Corpuscular HGB Conc 33.8 g/dl (32-36); Mean Corpuscular Hemoglobin 33.2 pg (26-34); Mean Corpuscular Volume 98.3 fl (80-100); Mean Platelet Volume 9.6 fl (7.4-10.4); Platelet Count Result 200 k/mm3 (150-375); Red Blood Count 3.49 M/mm3 (4.2-5.4); Red Cell Distribution Width 22.9 % (11.5-14.5); White Blood Count 3.2 K/mm3 (4.5-10.0)
[2022-09-23 05:39] LABS: Alanine Aminotransferase 78 U/L (6-35); Albumin Level 2.4 g/dL (3.5-5.1); Alkaline Phosphatase 157 U/L (38-126); Anion Gap 6 mmol/L (8-16); Aspartate Amino Transferase 90 U/L (14-36); Bilirubin,Total 0.2 mg/dL (0.2-1.3); Blood Urea Nitrogen 34 mg/dL (7-17); Calcium 7.4 mg/dL (8.4-10.2); Carbon Dioxide 25 mmol/L (22-30); Chloride 105 mmol/L (98-107); Estimated CRCL calculation 27 ml/min; Estimated Glomerular Filt Rate 29; Glucose 137 mg/dL (65-110); Magnesium 1.7 mg/dL (1.6-2.3); Potassium 3.7 mmol/L (3.4-5.0); Sodium 136 mmol/L (137-145)
[2022-09-23 06:47] LABS: Band Neutrophils Percent 7 % (0-6); Eosinophils Absolute Manual 0.06 K/mm3 (0.02-0.5); Eosinophils Percent Manual 2 % (0-4); Lymphocytes Absolute Manual 0.41 K/mm3 (1.1-4.5); Lymphocytes Percent Manual 13 % (18-44); Monocytes Absolute Manual 0.83 K/mm3 (0.1-0.90); Monocytes Percent Manual 26 % (3-9); Neutrophils Absolute Manual 1.88 K/mm3 (1.7-7.2); Neutrophils Percent Manual 52 % (46-73); Platelet Estimate Adequate (Adequate); Schistocytes None Seen (NORMAL); Total Cells Counted 100
[2022-09-23 06:48] LABS: Anisocytosis 1+ (NORMAL); Macrocytosis 1+ (NORMAL)
[2022-09-23] MEDS: CENTRAL LINE FLUSH 10 ML IV PUSH ×2 (08:33→17:01)
[2022-09-23] MEDS: SODIUM CHLORIDE 0.9% IV 1,000 ML 100 ML IV CONT ×2 (08:33→17:05)
[2022-09-23] MEDS: INSULIN ASPART (*BKC) 100 UNITS/ML SUB-Q ×3 (08:34→17:02)
[2022-09-23] MEDS: POTASSIUM CHLORIDE 10 MEQ TABLET.ER PO (08:46)
[2022-09-23] MEDS: hydrALAZINE HCL 25 MG TABLET PO ×4 (08:46→20:24)
[2022-09-23] MEDS: HYDROXYCHLOROQUINE SULFATE 200 MG TABLET PO (08:46)
[2022-09-23] MEDS: traMADol HCL (*CRX) 25 MG TABLET PO ×2 (08:46→20:24)
[2022-09-23] MEDS: CLOPIDOGREL BISULFATE 75 MG TABLET PO (08:47)
[2022-09-23] MEDS: FLUoxetine HCL 20 MG CAPSULE PO (08:47)
[2022-09-23] MEDS: METOPROLOL TARTRATE 12.5 MG TABLET 37.5 MG PO ×2 (08:47→20:24)
[2022-09-23] MEDS: MEGESTROL ACETATE (*CHEMO) 20 MG TABLET PO (08:47)
[2022-09-23] MEDS: amLODIPine BESYLATE 5 MG TABLET 10 MG PO (08:47)
[2022-09-23] MEDS: FUROSEMIDE 40 MG TABLET PO ×2 (08:47→17:02)
[2022-09-23] MEDS: ASPIRIN 81 MG ENTERIC TABLET PO (08:47)
[2022-09-23] MEDS: NICOTINE (*PBKC) 21 MG PATCH 1 PATCH TRANSDERM (08:48)
[2022-09-23 09:18] LABS: Glucose Point of Care 320 mg/dl (65-105)
[2022-09-23 12:16] LABS: Glucose Point of Care 279 mg/dl (65-105)
[2022-09-23] MEDS: HYDROmorphone HCL INJ (*CRX) 1 MG/ML SYR IV PUSH ×3 (12:58→21:55)
--- NOTE | 2022-09-23 13:21 | PCNSR ---
On 09/23/22, the student, Jaren Smith, provided care and completed [facility] documentation on this patient. I have reviewed the student's documentation and agree with the findings.
--- NOTE | 2022-09-23 14:43 | P.PNIM_ITS ---
Progress Note: A&P Assessment and Plan (1) Periprosthetic fracture around internal prosthetic left hip joint, initial encounter: Code(s): M97.02XA - Periprosthetic fracture around internal prosthetic left hip joint, initial encounter Status: Acute Assessment and Plan: * Imaging shows a comminuted intertrochanteric fx of proximal left femur with internal fixation. * Continue pain meds. * Dr. Payne consulted and advised to do PT/OT, pain management and conservative measures. * Nesbitt to gravity at this time. * PT eval made and they are recommending continued PT treatment and eval. * Patient agreeable finally to significant discharge for rehab (2) Hypertension: Code(s): I10 - Essential (primary) hypertension Status: Chronic Assessment and Plan: * Currently stable BP * Continue current home medications. (3) Diabetes: Code(s): E11.9 - Type 2 diabetes mellitus without complications Status: Chronic Assessment and Plan: * A1C is 7.6. * Continue Glucose checks AC and HS and SSI. Adjust SSI as needed. * Diabetic diet * Glimeperide is discontinued at this time, SSI is increased to High dose SSI, and Lantus 9 units HS is initiated. * better control achieved as fasting glucose this morning is 137. (4) Chronic renal failure: Code(s): N18.9 - Chronic kidney disease, unspecified Status: Chronic Assessment and Plan: * Mild increase in creatinine overnight. Currently 1.8. Normal saline 100 mL/hours ordered. * No DESIREE identified. * Continue to monitor. (5) Tobacco abuse: Code(s): Z72.0 - Tobacco use Status: Chronic Assessment and Plan: * Continue Nicotine Patch (6) Anemia: Code(s): D64.9 - Anemia, unspecified Status: Acute Assessment and Plan: * Etiology uncertain, possible dilutional vs. chronic disease from renal status. * Hgb yesterday is further decreased as follows: 9.2-->7.4-->6.7. Pt transfused 2 units PRBC's. * repeat hemoglobin today is 11.6. * Monitor with labs. * + Hx of rectal CA. * Stool occult blood is Negative * Anemia panel ordered And demonstrates high ferritin at 4:21 a.m., low transferrin at 1:56 a.m., low total iron binding capacity at 182, folate of 5.3 and B12 of 553 (7) Acute hyponatremia: Code(s): E87.1 - Hypo-osmolality and hyponatremia Status: Resolved Assessment and Plan: * Stable Sodium at 136 (8) CKD (chronic kidney disease): Code(s): N18.9 - Chronic kidney disease, unspecified Status: Chronic Assessment and Plan: * slight elevation above baseline this morning. Patient is receiving IV fluids of normal saline at 100 an hour. * (9) Rheumatoid arthritis: Code(s): M06.9 - Rheumatoid arthritis, unspecified Status: Chronic Assessment and Plan: * Continue Hydroxychloroquine (10) Anxiety and depression: Code(s): F41.9 - Anxiety disorder, unspecified; F32.A - Depression, unspecified Status: Chronic Assessment and Plan: * Continue home meds. Subjective Date/time seen: 09/23/22 5503 This patient was examined at the bedside today in interval assessment. She has had some improvement in her degree of fatigue. She has also accepted that she is going to have to go to rehab for placement as suggested by PT. patient still continues to have quite a bit of pain. She was transfuse 2 units of packed red blood cells yesterday for hemoglobin of 6.7. Her h
--- NOTE | 2022-09-23 14:43 | PM.IMPN ---
Progress Note: A&P Assessment and Plan (1) Periprosthetic fracture around internal prosthetic left hip joint, initial encounter: Code(s): M97.02XA - Periprosthetic fracture around internal prosthetic left hip joint, initial encounter Status: Acute Assessment and Plan: Imaging shows a comminuted intertrochanteric fx of proximal left femur with internal fixation. Continue pain meds. Dr. Payne consulted and advised to do PT/OT, pain management and conservative measures. Nesbitt to gravity at this time. PT eval made and they are recommending continued PT treatment and eval. Patient agreeable finally to significant discharge for rehab (2) Hypertension: Code(s): I10 - Essential (primary) hypertension Status: Chronic Assessment and Plan: Currently stable BP Continue current home medications. (3) Diabetes: Code(s): E11.9 - Type 2 diabetes mellitus without complications Status: Chronic Assessment and Plan: A1C is 7.6. Continue Glucose checks AC and HS and SSI. Adjust SSI as needed. Diabetic diet Glimeperide is discontinued at this time, SSI is increased to High dose SSI, and Lantus 9 units HS is initiated. better control achieved as fasting glucose this morning is 137. (4) Chronic renal failure: Code(s): N18.9 - Chronic kidney disease, unspecified Status: Chronic Assessment and Plan: Mild increase in creatinine overnight. Currently 1.8. Normal saline 100 mL/hours ordered. No DESIREE identified. Continue to monitor. (5) Tobacco abuse: Code(s): Z72.0 - Tobacco use Status: Chronic Assessment and Plan: Continue Nicotine Patch (6) Anemia: Code(s): D64.9 - Anemia, unspecified Status: Acute Assessment and Plan: Etiology uncertain, possible dilutional vs. chronic disease from renal status. Hgb yesterday is further decreased as follows: 9.2-->7.4-->6.7. Pt transfused 2 units PRBC's. repeat hemoglobin today is 11.6. Monitor with labs. + Hx of rectal CA. Stool occult blood is Negative Anemia panel ordered And demonstrates high ferritin at 4:21 a.m., low transferrin at 1:56 a.m., low total iron binding capacity at 182, folate of 5.3 and B12 of 553 (7) Acute hyponatremia: Code(s): E87.1 - Hypo-osmolality and hyponatremia Status: Resolved Assessment and Plan: Stable Sodium at 136 (8) CKD (chronic kidney disease): Code(s): N18.9 - Chronic kidney disease, unspecified Status: Chronic Assessment and Plan: slight elevation above baseline this morning. Patient is receiving IV fluids of normal saline at 100 an hour. (9) Rheumatoid arthritis: Code(s): M06.9 - Rheumatoid arthritis, unspecified Status: Chronic Assessment and Plan: Continue Hydroxychloroquine (10) Anxiety and depression: Code(s): F41.9 - Anxiety disorder, unspecified; F32.A - Depression, unspecified Status: Chronic Assessment and Plan: Continue home meds. Subjective Date/time seen: 09/23/22 0970 This patient was examined at the bedside today in interval assessment. She has had some improvement in her degree of fatigue. She has also accepted that she is going to have to go to rehab for placement as suggested by PT. patient still continues to have quite a bit of pain. She was transfuse 2 units of packed red blood cells yesterday for hemoglobin of 6.7. Her hemoglobin today has rebounded to 11.6. She has no complaints of chest pain, dyspnea, nausea, vomiting, diarrhea. Review of Systems Review of Systems: All systems reviewed & are unremarkable except as noted in HPI and below Exam Const: General: comfortable and uncomfortable ( Secondary to pain) HENMT: Mouth: Yes moist mucous membranes Eyes: General: appearance normal, both eyes and all related structures Neck: Neck: supple and no JVD Resp: Effort & I
[2022-09-23 16:30] LABS: Glucose Point of Care 250 mg/dl (65-105)
[2022-09-23] MEDS: valACYclovir HCL 500 MG TABLET PO (17:17)
[2022-09-23] MEDS: ATORVASTATIN 40 MG TABLET PO (18:10)
[2022-09-23] MEDS: INSULIN GLARGINE (*BKC) 100 UNITS/ML 9 UNITS SUB-Q (20:25)
[2022-09-23 20:30] LABS: Glucose Point of Care 267 mg/dl (65-105)
[2022-09-24] VITALS (7 sets, daily range): BP systolic 163–195; BP diastolic 55–78; PULSE 71–75; RESP 14–16; TEMP 36.5–36.9; O2SAT 97–100
[2022-09-24] MEDS: SODIUM CHLORIDE 0.9% IV 1,000 ML 100 ML IV CONT (05:00)
[2022-09-24] MEDS: CENTRAL LINE FLUSH 10 ML IV PUSH ×2 (05:00→14:50)
[2022-09-24 05:46] LABS: Eosinophils Absolute Auto 0.1 K/mm3 (0-0.3); Hematocrit 34.8 % (37.0-47.0); Hemoglobin 11.7 g/dL (12.0-15.0); Immature Granulocyte Absolute 0.01 K/mm3 (0.00-0.031); Immature Granulocyte Percent A 0.3 % (0-0.5); Lymphocytes Absolute Auto 0.66 K/mm3 (0.9-3.2); Lymphocytes Percent Auto 21.6 % (18.3-44.2); Mean Corpuscular HGB Conc 33.6 g/dl (32-36); Mean Corpuscular Hemoglobin 33.4 pg (26-34); Mean Corpuscular Volume 99.4 fl (80-100); Mean Platelet Volume 9.9 fl (7.4-10.4); Monocytes Absolute Auto 0.8 K/mm3 (0.1-0.6); Monocytes Percent Auto 25.6 % (2.6-8.5); Neutrophils Absolute Auto 1.5 K/mm3 (1.3-6.7); Neutrophils Percent Auto 49.5 % (45.5-73.1); Platelet Count Result 209 k/mm3 (150-375); Red Cell Distribution Width 22.9 % (11.5-14.5); White Blood Count 3.1 K/mm3 (4.5-10.0)
[2022-09-24 05:54] LABS: Alanine Aminotransferase 76 U/L (6-35); Albumin Level 2.4 g/dL (3.5-5.1); Alkaline Phosphatase 154 U/L (38-126); Anion Gap 6 mmol/L (8-16); Aspartate Amino Transferase 84 U/L (14-36); Bilirubin,Total 0.2 mg/dL (0.2-1.3); Blood Urea Nitrogen 29 mg/dL (7-17); Calcium 7.1 mg/dL (8.4-10.2); Carbon Dioxide 24 mmol/L (22-30); Chloride 106 mmol/L (98-107); Estimated CRCL calculation 29 ml/min; Estimated Glomerular Filt Rate 30; Glucose 128 mg/dL (65-110); Magnesium 1.5 mg/dL (1.6-2.3); Potassium 3.7 mmol/L (3.4-5.0); Sodium 136 mmol/L (137-145)
[2022-09-24 06:17] LABS: Platelet Estimate Adequate (Adequate)
[2022-09-24 06:18] LABS: Anisocytosis 1+ (NORMAL); Ovalocytes 1+ (NORMAL); Poikilocytosis 1+ (NORMAL)
[2022-09-24 06:52] LABS: Schistocytes None Seen (NORMAL)
[2022-09-24] MEDS: hydrALAZINE HCL 25 MG TABLET PO ×2 (08:07→11:45)
[2022-09-24] MEDS: MAGNESIUM SULF 2 GM/WATER 50ML 2 GM/50 ML BAG IVPB (08:07)
[2022-09-24] MEDS: POTASSIUM CHLORIDE 10 MEQ TABLET.ER PO (08:07)
[2022-09-24] MEDS: HYDROXYCHLOROQUINE SULFATE 200 MG TABLET PO (08:07)
[2022-09-24 08:08] LABS: Glucose Point of Care 140 mg/dl (65-105)
[2022-09-24] MEDS: METOPROLOL TARTRATE 12.5 MG TABLET 37.5 MG PO (08:08)
[2022-09-24] MEDS: FUROSEMIDE 40 MG TABLET PO (08:08)
[2022-09-24] MEDS: MEGESTROL ACETATE (*CHEMO) 20 MG TABLET PO (08:08)
[2022-09-24] MEDS: CLOPIDOGREL BISULFATE 75 MG TABLET PO (08:08)
[2022-09-24] MEDS: ASPIRIN 81 MG ENTERIC TABLET PO (08:09)
[2022-09-24] MEDS: amLODIPine BESYLATE 5 MG TABLET 10 MG PO (08:09)
[2022-09-24] MEDS: FLUoxetine HCL 20 MG CAPSULE PO (08:09)
[2022-09-24] MEDS: NICOTINE (*PBKC) 21 MG PATCH 1 PATCH TRANSDERM (08:10)
--- NOTE | 2022-09-24 09:21 | PM.PNORT ---
Progress Note: A&P Assessment and Plan (1) Periprosthetic fracture around internal prosthetic left hip joint, initial encounter: Code(s): M97.02XA - Periprosthetic fracture around internal prosthetic left hip joint, initial encounter Status: Acute Assessment and Plan: History, exam, radiographs and CT scan reviewed. CT scan shows new nondisplaced fracture of the proximal femur with the intramedullary kortney in place. Discussed with patient. Fracture is nondisplaced. Stabilized by internal fixation already in place. Continue conservative care with pain control, PT/OT. Ambulate with assistance and a walker. Weight bear as tolerated. Discussed healing time of for approximately 6 weeks with the patient. We will continue to follow. Subjective Subjective Date/Time Seen: 09/24/22 09:21 Principal diagnosis: Periprosthetic fracture around internal prosthetic left hip joint Interval history: Patient awake. Sitting up in bed. Tolerating diet. Pain controlled now. No new concerns. Review of Systems Review of Systems: All systems reviewed & are unremarkable except as noted in HPI and below Exam Const: General: comfortable and uncomfortable ( Secondary to pain) HENMT: Mouth: Yes moist mucous membranes Eyes: General: appearance normal, both eyes and all related structures Neck: Neck: supple and no JVD Resp: Effort & Inspection: normal respiratory effort Auscultation: clear to auscultation bilaterally Cardio: Rate: regular rate Rhythm: regular rhythm Heart sounds: no gallops, no murmurs and no rubs GI: Inspection: non-distended Auscultation: normal bowel sounds Skin: General skin exam: normal color, no rashes or lesions noted, no erythema, No lesion noted and No rashes noted Lesions: no lesions noted Rashes: no rashes noted Wounds: no wounds Neuro: General: No gait normal (Secondary to new proximal femur fracture.) Motor exam (neuro): strength not 5/5 throughout and Normal motor muscle tone present throughout Other: Weakened LLE secondary to new fracture. Extrem: General: normal to inspection, no edema and no pedal edema Other: Distal neurovascular status of left lower extremity is intact. Cap refill of <2 sec and pedal pulses are strong at 2+. No edema. Psych: Mental Status: mental status grossly normal Affect: No normal affect (Flat and withdrawn affect.) Attitude: not belligerent Objective Data Vital Signs Vital Signs: Vital Signs - 24 hr 09/23/22 12:00 09/23/22 16:00 09/23/22 20:24 Temperature 36.8 C 36.6 C Pulse Rate 74 74 78 Respiratory Rate 18 18 Blood Pressure 160/82 H 180/82 H Pulse Oximetry 99 100 09/23/22 20:00 09/24/22 00:00 09/24/22 04:00 Temperature 36.6 C 36.7 C 36.9 C Pulse Rate 71 71 72 Respiratory Rate 16 16 16 Blood Pressure 169/77 H 181/76 H Pulse Oximetry 100 100 98 09/24/22 05:45 09/24/22 08:08 09/24/22 08:00 Temperature 36.5 C Pulse Rate 72 75 Respiratory Rate 14 Blood Pressure 170/55 H 195/78 H Pulse Oximetry 97 Intake/Output Intake/Output: Intake & Output 09/21/22 09/22/22 09/23/22 09/24/22 23:59 23:59 23:59 23:59 Intake Total 3250 3040 2170 1480 Output Total 1700 2500 1600 1250 Balance 1550 540 570 230 Meds/Results Medications: Active Medications Generic Name Dose Route Start Last Admin Trade Name Freq PRN Reason Stop Dose Admin Albuterol 2.5 mg 09/20/22 21:26 Albuterol Sulfate Neb 2.5 Mg/3 Ml Inh INHALATION Q4HRT PRN Shortness Of Breath Amlodipine Besylate 10 mg 09/21/22 09:00 09/24/22 08:09 Amlodipine Besylate 5 Mg Tablet PO 10 mg QAM YOBANY Administration Aspirin 81 mg 09/21/22 09:00 09/24/22 08:09 Aspirin 81 Mg Enteric Tablet PO 81 mg DAILY YOBANY Administration Atorvastatin Calcium 40 mg 09/20/22 22:10 09/23/22 18:10 Atorvastatin 40 Mg Tablet PO 40 mg QPM YOBANY Administration Clopidogrel Bisulfate 75 mg 09/21/22 09:00 09/24/22 08:08 Clopidogrel Bisulfate 75
--- NOTE | 2022-09-24 10:55 | P.DS_ITS ---
DS: Admitting Diagnosis Discharge Date 09/24/2022 Admitting Diagnosis Periprosthetic fracture around the internal prosthetic left hip joint, hypertension, type 2 diabetes mellitus, chronic renal failure, tobacco abuse, anemia, hyponatremia, CKD, rheumatoid arthritis, anxiety and depression DS: Discharge Diagnosis Discharge Diagnosis (1) Periprosthetic fracture around internal prosthetic left hip joint, initial encounter: Code(s): M97.02XA - Periprosthetic fracture around internal prosthetic left hip joint, initial encounter Status: Acute Assessment and Plan: * Imaging shows a comminuted intertrochanteric fx of proximal left femur with internal fixation. * Continue pain meds. * Dr. Payne consulted and advised to do PT/OT, pain management and conservative measures. * Nesbitt to gravity at this time. * Pt. admitted she purposely did not work as much with therapy as she could h ave. She is now once again motivated to return home. Therefore therapy came and worked with her this morning and she was standby assist and stable for discharge home with home health. (2) Hypertension: Code(s): I10 - Essential (primary) hypertension Status: Chronic Assessment and Plan: * Currently stable BP * Continue current home medications. (3) Diabetes: Code(s): E11.9 - Type 2 diabetes mellitus without complications Status: Chronic Assessment and Plan: * A1C is 7.6. * Continue Glucose checks AC and HS and SSI. Adjust SSI as needed. * Diabetic diet * Glimeperide is discontinued at this time, SSI is increased to High dose SSI, and Lantus 9 units HS is initiated. * better control achieved as fasting glucose this morning is 128. * Patient will Resume her home insulin regimen upon discharge. (4) Chronic renal failure: Code(s): N18.9 - Chronic kidney disease, unspecified Status: Chronic Assessment and Plan: * Mild increase in creatinine overnight. Currently 1.8. Normal saline 100 mL/hours ordered. * No DESIREE identified. * Continue to monitor. (5) Tobacco abuse: Code(s): Z72.0 - Tobacco use Status: Chronic Assessment and Plan: * Continue Nicotine Patch (6) Anemia: Code(s): D64.9 - Anemia, unspecified Status: Acute Assessment and Plan: * Etiology uncertain, possible dilutional vs. chronic disease from renal status vs. acute injury * Received 2 units of PRBC's on 09/22/22 for her acute on chronic anemia. * repeat hemoglobin today is maintaining. * Monitor with labs. * + Hx of rectal CA. * Stool occult blood is Negative * Anemia panel ordered And demonstrates high ferritin at 4:21 a.m., low transferrin at 1:56 a.m., low total iron binding capacity at 182, folate of 5.3 and B12 of 553 (7) Acute hyponatremia: Code(s): E87.1 - Hypo-osmolality and hyponatremia Status: Resolved Assessment and Plan: Resolved (8) CKD (chronic kidney disease): Code(s): N18.9 - Chronic kidney disease, unspecified Status: Chronic Assessment and Plan: * Renal function improved overnight with the administration of IVF. (9) Rheumatoid arthritis: Code(s): M06.9 - Rheumatoid arthritis, unspecified Status: Chronic Assessment and Plan: * Continue Hydroxychloroquine (10) Anxiety and depression: Code(s): F41.9 - Anxiety disorder, unspecified; F32.A - Depression, unspecified Status: Chronic Assessment and Plan: * Eric
--- NOTE | 2022-09-24 10:55 | PM.DS ---
DS: Admitting Diagnosis Discharge Date 09/24/2022 Admitting Diagnosis Periprosthetic fracture around the internal prosthetic left hip joint, hypertension, type 2 diabetes mellitus, chronic renal failure, tobacco abuse, anemia, hyponatremia, CKD, rheumatoid arthritis, anxiety and depression DS: Discharge Diagnosis Discharge Diagnosis (1) Periprosthetic fracture around internal prosthetic left hip joint, initial encounter: Code(s): M97.02XA - Periprosthetic fracture around internal prosthetic left hip joint, initial encounter Status: Acute Assessment and Plan: Imaging shows a comminuted intertrochanteric fx of proximal left femur with internal fixation. Continue pain meds. Dr. Payne consulted and advised to do PT/OT, pain management and conservative measures. Nesbitt to gravity at this time. Pt. admitted she purposely did not work as much with therapy as she could have. She is now once again motivated to return home. Therefore therapy came and worked with her this morning and she was standby assist and stable for discharge home with home health. (2) Hypertension: Code(s): I10 - Essential (primary) hypertension Status: Chronic Assessment and Plan: Currently stable BP Continue current home medications. (3) Diabetes: Code(s): E11.9 - Type 2 diabetes mellitus without complications Status: Chronic Assessment and Plan: A1C is 7.6. Continue Glucose checks AC and HS and SSI. Adjust SSI as needed. Diabetic diet Glimeperide is discontinued at this time, SSI is increased to High dose SSI, and Lantus 9 units HS is initiated. better control achieved as fasting glucose this morning is 128. Patient will Resume her home insulin regimen upon discharge. (4) Chronic renal failure: Code(s): N18.9 - Chronic kidney disease, unspecified Status: Chronic Assessment and Plan: Mild increase in creatinine overnight. Currently 1.8. Normal saline 100 mL/hours ordered. No DESIREE identified. Continue to monitor. (5) Tobacco abuse: Code(s): Z72.0 - Tobacco use Status: Chronic Assessment and Plan: Continue Nicotine Patch (6) Anemia: Code(s): D64.9 - Anemia, unspecified Status: Acute Assessment and Plan: Etiology uncertain, possible dilutional vs. chronic disease from renal status vs. acute injury Received 2 units of PRBC's on 09/22/22 for her acute on chronic anemia. repeat hemoglobin today is maintaining. Monitor with labs. + Hx of rectal CA. Stool occult blood is Negative Anemia panel ordered And demonstrates high ferritin at 4:21 a.m., low transferrin at 1:56 a.m., low total iron binding capacity at 182, folate of 5.3 and B12 of 553 (7) Acute hyponatremia: Code(s): E87.1 - Hypo-osmolality and hyponatremia Status: Resolved Assessment and Plan: Resolved (8) CKD (chronic kidney disease): Code(s): N18.9 - Chronic kidney disease, unspecified Status: Chronic Assessment and Plan: Renal function improved overnight with the administration of IVF. (9) Rheumatoid arthritis: Code(s): M06.9 - Rheumatoid arthritis, unspecified Status: Chronic Assessment and Plan: Continue Hydroxychloroquine (10) Anxiety and depression: Code(s): F41.9 - Anxiety disorder, unspecified; F32.A - Depression, unspecified Status: Chronic Assessment and Plan: Continue home meds. DS: Summary Hospital Course Reason for hospitalization: GLF and Fracture of periprosthetic region of recent left hip surgery. Hospital Course: This 62 year old female patient presented to the ER on 09/20/22 after sustaining a mechanical GLF that resulted in her having an acute fracture of the left leg, periprosthetic area where she had just had hip repair recently. She was admitted for pain control as well as expert Ortho and PT evaluations. While here s
[2022-09-24] MEDS: INSULIN ASPART (*BKC) 100 UNITS/ML SUB-Q (11:41)
[2022-09-24 11:45] LABS: Glucose Point of Care 316 mg/dl (65-105)
[2022-09-24] MEDS: HEPARIN SODIUM LOCK FLUSH 500 UNITS/5 ML SYRINGE IV PUSH (14:53)
[2022-09-24] MEDS: traMADol HCL (*CRX) 25 MG TABLET PO (15:33)
--- NOTE | 2022-09-24 16:06 | PC.NURSE ---
Brooke sent script to pharmacy for patient's pain.
[2022-09-24 17:55] LABS: Osmolality, Urine 463 mOsm/kg (50-1200)
[2022-09-24 17:56] LABS: Ionized Calcium 4.8 mg/dL (4.8-5.6)
== END 2022-09-24 15:48 | disposition home health service (06) | DRG 536 ==
LOC: ANHED 15:55 → ANH3MEDSUR 17:28
PROVIDERS: Chiropractor; Nurse Practitioner; Admitting Provider Family Medicine; Emergency Provider Nurse Practitioner Family; PCP Internal Medicine; Visit Provider Nurse Practitioner Adult Health
DX: S72.25XA Nondisplaced subtrochanteric fracture of left femur, initial encounter for closed fracture (principal); M97.02XA Periprosthetic fracture around internal prosthetic left hip joint, initial encounter; I13.0 Hypertensive heart and chronic kidney disease with heart failure and stage 1 through stage 4 chronic kidney disease, or unspecified chronic kidney disease; E87.1 Hypo-osmolality and hyponatremia; S40.812A Abrasion of left upper arm, initial encounter; W19.XXXA Unspecified fall, initial encounter; D63.1 Anemia in chronic kidney disease; E11.22 Type 2 diabetes mellitus with diabetic chronic kidney disease; E11.51 Type 2 diabetes mellitus with diabetic peripheral angiopathy without gangrene; E78.5 Hyperlipidemia, unspecified; F41.9 Anxiety disorder, unspecified; F32.A Depression, unspecified; F17.210 Nicotine dependence, cigarettes, uncomplicated; I25.10 Atherosclerotic heart disease of native coronary artery without angina pectoris; I50.9 Heart failure, unspecified; I25.2 Old myocardial infarction; K21.9 Gastro-esophageal reflux disease without esophagitis; M16.12 Unilateral primary osteoarthritis, left hip; M06.9 Rheumatoid arthritis, unspecified; N18.9 Chronic kidney disease, unspecified; Z79.4 Long term (current) use of insulin; Z92.21 Personal history of antineoplastic chemotherapy; Z92.3 Personal history of irradiation; Z95.5 Presence of coronary angioplasty implant and graft; Z85.048 Personal history of other malignant neoplasm of rectum, rectosigmoid junction, and anus; Z79.82 Long term (current) use of aspirin; Z79.02 Long term (current) use of antithrombotics/antiplatelets; Z79.84 Long term (current) use of oral hypoglycemic drugs; Z88.0 Allergy status to penicillin
CPT/HCPCS: 36415; 36430; 72100; 73502; 73700; 80053; 81001; 82274; 82330; 82607; 82728; 82746; 82948; 83036; 83540; 83550; 83735; 83935; 84300; 84439; 84443; 84466; 84480; 85014; 85018; 85025; 85610; 85730; 86850; 86900; 86901; 86923; 96372; 96374; 96375; 96376; 97110; 97116; 97161; 97166; 97530; 97535; 99285; A9270; G0378; J0131; J1170; J1642; J1650; J1815; J3475; J7030; J7050; P9016

== ENCOUNTER 2022-12-24 12:19 | Outpatient (CLI) | payer OTHER, SELFPAY ==
--- NOTE | 2022-12-24 12:44 | ECHO_ITS ---
Patient Info Name: Janice Rodgers Age: 62 years : 1960 Gender: Female Ht: 66 in Wt: 129 lbs BSA: 1.65 m2 HR: 60 bpm BP: 147 / 73 mmHg Technical Quality: Good Exam Date: 12/24/2022 1:04 PM Exam Location: [facility] Pulmonary Patient Status: Outpatient Admit Date: 12/24/2022 Staff Ordering Physician: Nelson Solo DO Instructional Systems Design Consultant: Nicholas Last RDCS Attending Provider: Nelson Solo DO Referring Physician: Edil ISIDRO; Exam Type: CA echo doppler color flow Study Info Indications R06.09 - Other forms of dyspnea Complete two-dimensional, color flow and Doppler transthoracic echocardiogram is performed. Summary 1. Complete two-dimensional, color flow and Doppler transthoracic echocardiogram is performed. 2. Left ventricular chamber dimension is normal. 3. Left ventricular systolic function is normal, estimated at 60-65%. 4. There is mildly increased left ventricular wall thickness. 5. The left ventricular diastolic function is abnormal. 6. E/e' 20 is elevated. 7. Left atrial chamber dimension is mildly enlarged. 8. There is trace mitral valve regurgitation. 9. There is trace tricuspid valve regurgitation. 10. Normal inferior vena cava with >50% collapse upon inspiration consistent with elevated right atrial pressure, 10 mmHg. Left Ventricle E/e' 20 is elevated. Left ventricular chamber dimension is normal. Left ventricular systolic function is normal, estimated at 60-65%. There is mildly increased left ventricular wall thickness. The left ventricular diastolic function is abnormal. Right Ventricle Right ventricular systolic function is normal and with normal TAPSE 2.1 cm. Right ventricular chamber dimension is normal. Left Atria Left atrial chamber dimension is mildly enlarged. Right Atria Right atrial chamber dimension is normal. Aortic Valve The aortic valve is trileaflet. There is no aortic valve stenosis. There is no aortic valve regurgitation. Pulmonic Valve There is no pulmonic regurgitation. Mitral Valve There is no mitral valve stenosis. There is trace mitral valve regurgitation. Tricuspid Valve RVSP is not calculated due to an inadequate TR jet. There is trace tricuspid valve regurgitation. Pericardium/Pleural There is no pericardial effusion. Inferior Vena Cava Normal inferior vena cava with >50% collapse upon inspiration consistent with elevated right atrial pressure, 10 mmHg. Aorta The aortic root size at the sinus of Valsalva is normal. Left Ventricular Outflow Tract Name Value Normal LVOT 2D LVOT Diameter 2.0 cm LVOT Doppler LVOT Peak Gradient 4 mmHg LVOT Mean Gradient 2 mmHg LVOT VTI 25 cm LVOT VTI/AV VTI Ratio 1.0 LVOT Stroke Volume 80 ml LVOT CO 4.9 l/min LVOT CI 2.9 l/min/m2 Mitral Valve Name Value Normal ---
== END 2022-12-24 12:20 | disposition home or self-care (01) ==
PROVIDERS: PCP Internal Medicine; Visit Provider Internal Medicine Cardiovascular Disease
DX: R06.09 Other forms of dyspnea (principal); I51.7 Cardiomegaly
CPT/HCPCS: 93306

== ENCOUNTER 2022-12-30 09:22 | Outpatient (CLI) | payer OTHER, SELFPAY ==
--- NOTE | ~2022-12-30 | NM_ITS ---
EXAMINATION: NM claudia stress w perfusion DATE: 12/30/2022 11:21 INDICATION: Other forms of dyspnea TECHNIQUE: Rest images were obtained following intravenous administration of 10.7 mCi Tc99m tetrofosm in (Myoview). The patient was infused intravenously with Lexiscan (Regadenoson). Then, 33.9 mCi Tc99m tetrofosmin (Myoview) was administered intravenously, and stress images were obtained. Imaging was p erformed in the supine position. Prone imaging was unable to be obtained. Data was reconstructed into short axis and horizontal and vertical long axis SPECT images. Gated SPECT images were also obtained . COMPARISON: None. FINDINGS: Likely artifactual decreased activity of moderate severity on the rest images at the apex, apical and mid anterior, apical septal and mid anteroseptal segments. This nearly completely normaliz es on the stress images were there is a small region of mild decreased activity mid anteroseptal segm ent. Prominent breast attenuation artifact and be seen passing over the heart on the rotating source images. No reversible perfusion defects to suggest ischemia. There is normal left ventricular chamber size, wall motion and ejection fraction. Left ventricular ejection fraction measures >70%. IMPRESSION: 1. Moderate-sized, moderate severity region of decreased perfusion along the anterior and anterosepta l wall on rest images which largely normalizes aside from a residual small region of mild decreased a ctivity at the mid anteroseptal segment on the post stress images. Would favor sequela of breast atte nuation artifact over small mild infarct mid anteroseptal infarct. 2. Left ventricular ejection fraction measuring >70%. Reviewed, dictated and finalized at location A. ET SWAGING MACHINE ADJUSTER IMPRESSION: 1. Moderate-sized, moderate severity region of decreased perfusion along the an terior and anteroseptal wall on rest images which largely normalizes aside from a residual small region of mild decreased activity at the mid anteroseptal seg ment on the post stress images. Would favor sequela of breast attenuation artif act over small mild infarct mid anteroseptal infarct. 2. Left ventricular ejection fraction measuring >70%.
--- NOTE | 2022-12-30 09:25 | EST_ITS ---
Patient Info Name: Janice Rodgers Age: 62 years : 1960 Gender: Female Ht: 66 in Wt: 120 lbs BSA: 1.59 m2 HR: 68 bpm BP: 193 / 80 mmHg Heart Rhythm: Sinus Rhythm Exam Date: 12/30/2022 10:24 AM Exam Location: [facility] Stress Patient Status: Outpatient Admit Date: 12/30/2022 Staff Ordering Physician: Nelson Solo DO Attending Provider: Nelson Solo DO Exercise Technologist: Dora Sifuentes CT Exercise Physician: Nelson Solo DO Exam Type: CA stress claudia w NM Study Info Indications R06.09 - Other forms of dyspnea A regadenoson stress test was performed. Summary 1. 1. Negative lexiscan stress test for ischemic ST changes by ECG criteria. 2. 2. Baseline hypertension. 3. 3. Nuclear scan to follow and will be reported separately. Please correlate with it. 4. 4. Patient informed of the above results. Protocol: Lexiscan Stress ECG Details Stage: REST Duration (min): 1 min : 59 sec HR (bpm): 68 SBP (mmHg): 193 DBP (mmHg): 80 Stage: REST Duration (min): 7 min : 22 sec HR (bpm): 68 SBP (mmHg): 193 DBP (mmHg): 80 Stage: STAGE 1 Duration (min): 1 min : 0 sec HR (bpm): 72 SBP (mmHg): 203 DBP (mmHg): 64 Stage: RECOVERY Duration (min): 1 min : 0 sec HR (bpm): 69 SBP (mmHg): 203 DBP (mmHg): 64 Stage: RECOVERY Duration (min): 2 min : 0 sec HR (bpm): 77 SBP (mmHg): 203 DBP (mmHg): 64 Stage: RECOVERY Duration (min): 3 min : 0 sec HR (bpm): 74 SBP (mmHg): 190 DBP (mmHg): 69 Stage: RECOVERY Duration (min): 4 min : 0 sec HR (bpm): 76 SBP (mmHg): 190 DBP (mmHg): 69 Stage: RECOVERY Duration (min): 5 min : 0 sec HR (bpm): 82 SBP (mmHg): 191 DBP (mmHg): 77 Stage: RECOVERY Duration (min): 5 min : 41 sec HR (bpm): 80 SBP (mmHg): 191 DBP (mmHg): 77 Rest HR: 68 bpm Peak HR: 82 bpm Rest Sys BP: 193 mmHg Peak Sys BP: 203 mmHg Max Pred HR: 158 bpm % Max Pred HR: 52 % Target HR: 134 bpm Max RPP: 16,646 bpm*mmHg Termination Reason: Completed protocol Cardiac Symptoms: Shortness of breath, Persistent nausea Total Time: 1 min : 0 sec Rest Locke BP: 80 mmHg Peak Locke BP: 64 mmHg Total Dose: 0.4 mg Resting ECG Sinus rhythm, IRBBB, inferior infarct, age indeterminate, anterior infarct, age indeterminate, borderline ST-T wave in high lateral leads. Stress ECG No ST changes. Aminophylline 100 mg IV x1 given due to persistent nausea. Arrhythmias None. Report Signatures
== END 2022-12-30 09:23 | disposition home or self-care (01) ==
PROVIDERS: PCP Internal Medicine; Visit Provider Internal Medicine Cardiovascular Disease
DX: R06.09 Other forms of dyspnea (principal); R94.39 Abnormal result of other cardiovascular function study; I10 Essential (primary) hypertension
CPT/HCPCS: 78452; 93017; A9502; J0280; J2785

== ENCOUNTER 2023-01-09 09:44 | Outpatient (CLI) | payer OTHER, SELFPAY ==
--- NOTE | ~2023-01-09 | NM_ITS ---
EXAM: NM gastric emptying study DATE: 01/09/2023 14:26 INDICATION: Nausea and vomiting. TECHNIQUE: A gastric emptying study was performed using the methodology of Lashon MARIO, et al. J Nucl Med 2007; 48:568-572. The patient was given a meal consisting of 2 scrambled eggs labeled with 0.996 mCi Tc-99m sulfur colloid, 2 slices of toast, two packages of jam, and approximately 120 mL of water . Simultaneous anterior and posterior 1-min images of the abdomen were obtained with the patient supi ne at multiple time points over a total period of 4 hours. The geometric mean of anterior and posteri or views was determined, and the percentage retention was calculated for each time point. COMPARISON: None. FINDINGS: Gastric retention of the radiotracer-labeled meal was 66%, 64%, and 44% at the 1-hour, 2-h our, and 4-hour time points, respectively. With this technique, apparent rapid gastric emptying is jackson ggested by <30% gastric retention at 1 hour. Delayed gastric emptying is defined by gastric retention of >90% at 1 hour, >60% retention at 2 hours, or >10% retention at 4 hours. IMPRESSION: 1. Delayed gastric emptying. Reviewed, dictated and finalized at location A. CE AGENT
== END 2023-01-09 09:45 | disposition home or self-care (01) ==
PROVIDERS: PCP Internal Medicine; Visit Provider Nurse Practitioner
DX: R11.2 Nausea with vomiting, unspecified (principal); K30 Functional dyspepsia
CPT/HCPCS: 78264; A9541

== ENCOUNTER 2023-01-30 16:23 | Observation (INO) | payer OTHER, SELFPAY ==
[2023-01-30] VITALS (9 sets, daily range): BP systolic 154–187; BP diastolic 77–85; PULSE 60–63; RESP 14–181; TEMP 36.3–36.5; O2SAT 93–100
--- NOTE | ~2023-01-30 | XR_ITS ---
EXAMINATION: XR chest 2V DATE: 02/01/2023 13:01 INDICATION: Congestive heart failure. TECHNIQUE: Frontal and lateral views of the chest were obtained. COMPARISON: Chest single view 01/30/2023, PET/CT 03/05/2022 FINDINGS: There is mild scarring at the lung apices. There is a diffuse interstitial pattern, consist ent mild pulmonary edema. There are trace pleural effusions. No pneumothorax. The heart size is fuad l. There is a right subclavian port with tip at superior cavoatrial junction. Breast implants are not ed. IMPRESSION: 1. Mild pulmonary edema with trace pleural effusions. Reviewed, dictated and finalized at location A. ET CONSULTANT
--- NOTE | ~2023-01-30 | US_ITS ---
EXAMINATION: US renal BI DATE: 01/31/2023 09:23 INDICATION: Acute kidney injury. TECHNIQUE: Multiple ultrasound grayscale images of the kidneys were obtained. COMPARISON: None. FINDINGS: The right kidney measures 10.5 x 5.4 x 5.3 cm. The left kidney measures 11.5 x 5.7 x 4.5 cm. The kidn eys demonstrate increased parenchymal echogenicity, consistent with nonspecific nephropathy. There is no hydronephrosis. The bladder is normal. IMPRESSION: 1. Normal kidney sizes. No hydronephrosis. Reviewed, dictated and finalized at location A. INUM POURER
--- NOTE | ~2023-01-30 | US_ITS ---
EXAMINATION: US venous doppler [facility] DATE: 02/01/2023 14:42 INDICATION: Bilateral lower limb swelling TECHNIQUE: Tate scale images without and with compression and Doppler images of the bilateral lower e xtremity veins were obtained. COMPARISON: None FINDINGS: The right common femoral vein, profunda femoral vein, femoral vein, popliteal vein, peroneal trunk, p osterior tibial veins, and greater saphenous vein are patent. The left common femoral vein, profunda femoral vein, femoral vein, popliteal vein, peroneal trunk, po sterior tibial veins, and greater saphenous vein are patent. IMPRESSION: 1. Patent bilateral lower extremity veins. No evidence of deep venous thrombosis. Reviewed, dictated and finalized at location F. IALTY DEVELOPMENT CONSULTANT IMPRESSION: 1. Patent bilateral lower extremity veins. No evidence of deep venous thrombosi s.
--- NOTE | ~2023-01-30 | XR_ITS ---
Portable chest x-ray Comparison: 06/21/2022 Clinical History: Weakness Findings: Stable right-sided Mediport present. There is mild hazy bibasilar airspace disease, likely mild pulmonary edema. No definite pleural effusions. Cardiomediastinal silhouette is stable. Bones and soft tissues are unremarkable. Impression: Mild bibasilar pulmonary edema. Correlate clinically for infection. Stable Mediport. Reviewed, dictated and finalized at [facility]. ING ROOM HELPER Impression: Mild bibasilar pulmonary edema. Correlate clinically for infection. Stable Mediport.
--- NOTE | 2023-01-30 16:59 | ECG_ITS ---
Measurements Intervals [place] Rate: 67 P: 60 UT: 146 QRS: -64 QRSD: 100 T: 69 QT: 460 QTc: 488 Interpretive Statements SINUS RHYTHM INCOMPLETE RIGHT BUNDLE BRANCH BLOCK LEFT ANTERIOR FASCICULAR BLOCK BORDERLINE ST-T WAVE ABNORMALITY- HIGH LATERAL LEADS BASELINE ARTIFACT- V4 ABNORMAL ECG COMPARED TO ECG 06/21/2022 20:02:02 NO SIGNIFICANT CHANGES Electronically Signed On 01-30-2023 19:18:00 SUPERVISOR WET END by Nelson Solo D.O.
--- NOTE | 2023-01-30 17:44 | ED.GENADULT ---
HPI - General Adult General Chief complaint: Recheck/Abnormal Lab/Rx Stated complaint: low hemoglobin Time Seen by Provider: 01/30/23 17:36 Source: patient Mode of arrival: wheelchair Limitations: no limitations History of Present Illness HPI narrative: Patient is a 62-year-old female with a history of HTN, CAD, CKD, anemia of chronic disease, diabetes, presenting to the emergency department for evaluation of low hemoglobin. Reportedly, patient had a low hemoglobin of 6.8 at her infusion center today. Patient sees a mini lab operator at [facility], went for a scheduled infusion this afternoon and did receive that. Patient provides much of the history secondary to patient's mild cognitive impairment. It sounds as if the patient did receive an EPO infusion after discussion with the . She did not receive a blood transfusion this afternoon. Patient reports generalized weakness. She denies any significant lightheadedness or dizziness. Denies nausea or vomiting. Denies syncopal event. She denies fever, chills, chest pain, cough, dyspnea. Related Data Home Medications Medication Instructions Recorded Confirmed aspirin 81 mg tablet,delayed 81 mg PO DAILY 04/19/22 01/22/23 release atorvastatin 40 mg tablet 40 mg PO QPM 04/19/22 01/22/23 hydroxychloroquine 200 mg tablet 200 mg PO QAM 04/19/22 01/22/23 valacyclovir 500 mg tablet 500 mg PO QPM 06/28/22 01/22/23 diphenoxylate-atropine 2.5 See Rx Instructions PO .COMPLEX 11/14/22 01/22/23 mg-0.025 mg tablet PRN Diarrhea ascorbic acid (vitamin C) 1,000 mg 1 g PO DAILY 01/22/23 01/22/23 capsule cholecalciferol (vitamin D3) 50 50 mcg PO DAILY 01/22/23 01/22/23 mcg (2,000 unit) capsule fluoxetine 60 mg tablet 60 mg PO QAM 01/22/23 01/22/23 hydralazine 100 mg tablet 100 mg PO TID 01/22/23 01/22/23 pantoprazole 40 mg tablet,delayed 40 mg PO BID 01/22/23 01/22/23 release Allergies Allergy/AdvReac Type Severity Reaction Status Date / Time Penicillins AdvReac Intermediate hives Verified 01/22/23 11:05 Review of Systems Review of Systems: CONSTITUTIONAL: Denies fever, chills, or sweats. EYES: Denies visual changes, redness, or discharge. ENT: Denies rhinorrhea, congestion, sore throat, or otalgia. CARDIOVASCULAR: Denies chest pain, palpitations, or edema. RESPIRATORY: Denies cough or dyspnea. GASTROINTESTINAL: Denies abdominal pain, nausea, vomiting, or diarrhea. GENITOURINARY: Denies dysuria or hematuria. SKIN: Denies rash or itching. MUSCULOSKELETAL: Denies back pain, joint pain, or myalgia. NEUROLOGIC: Denies headache, numbness, reports generalized weakness and fatigue PMFSH Past Medical History Medical History Anxiety and depression Breast implant capsular contracture CAD (coronary artery disease) Chronic renal failure Diabetes Essential hypertension GERD (gastroesophageal reflux disease) History of rectal or anal cancer chemo , radiation HLD (hyperlipidemia) Hypertension Nausea and vomiting Old myocardial infarction, greater than 8 weeks stents PAD (peripheral artery disease) Periprosthetic fracture around internal prosthetic left hip joint, subsequent encounter Port-A-Cath in place Rheumatoid arthritis Tobacco abuse Surgical History Surgical History H/O heart artery stent H/O rotator cuff surgery History of cardiovascular surgery History of cryosurgery Family History Family History Father Old age Mother Alcohol abuse Other Diabetes mellitus Gout Social History Social History Social History: the patient continues to smoke cigarettes approximately 1 and half packs of cigarettes a day. The patient lives with her and has 2 children. The patient denies any alcohol but she does use THC oil. T
[2023-01-30 17:53] LABS: Basophils Percent Auto 0.5 % (0.2-1.2); Eosinophils Percent Auto 0.3 % (0-4.4); Hematocrit 23.2 % (37.0-47.0); Hemoglobin 7.7 g/dL (12.0-15.0); Immature Granulocyte Absolute 0.03 K/mm3 (0.00-0.031); Immature Granulocyte Percent A 0.5 % (0-0.5); Lymphocytes Absolute Auto 0.38 K/mm3 (0.9-3.2); Mean Corpuscular HGB Conc 33.2 g/dl (32-36); Mean Corpuscular Hemoglobin 33.5 pg (26-34); Mean Corpuscular Volume 100.9 fl (80-100); Mean Platelet Volume 10.8 fl (7.4-10.4); Monocytes Absolute Auto 0.7 K/mm3 (0.1-0.6); Monocytes Percent Auto 10.8 % (2.6-8.5); Neutrophils Absolute Auto 5.2 K/mm3 (1.3-6.7); Neutrophils Percent Auto 81.9 % (45.5-73.1); Platelet Count Result 258 k/mm3 (150-375); Red Cell Distribution Width 22.5 % (11.5-14.5); White Blood Count 6.3 K/mm3 (4.5-10.0)
[2023-01-30 18:06] LABS: Anisocytosis 1+ (NORMAL); Ovalocytes 1+ (NORMAL); Platelet Estimate Adequate (Adequate); Schistocytes None Seen (NORMAL)
[2023-01-30 18:33] LABS: Alanine Aminotransferase 39 U/L (6-35); Albumin Level 2.6 g/dL (3.5-5.1); Alkaline Phosphatase 182 U/L (38-126); Anion Gap 3 mmol/L (8-16); Aspartate Amino Transferase 37 U/L (14-36); Bilirubin,Total 0.4 mg/dL (0.2-1.3); Blood Urea Nitrogen 58 mg/dL (7-17); Calcium 7.7 mg/dL (8.4-10.2); Carbon Dioxide 26 mmol/L (22-30); Chloride 99 mmol/L (98-107); Estimated CRCL calculation 19 ml/min; Estimated Glomerular Filt Rate 20; Glucose 356 mg/dL (65-110); Potassium 3.7 mmol/L (3.4-5.0); Sodium 128 mmol/L (137-145)
[2023-01-30] MEDS: SODIUM CHLORIDE 0.9% IV 250 ML 30 ML IV CONT (20:03)
[2023-01-30] MEDS: TUBING, BLOOD PLUM PUMP TUBING 1 EACH XX (20:10)
--- NOTE | 2023-01-30 23:02 | PM.IMHP ---
H&P: HPI History of Present Illness Date/Time: 01/30/23 23:02 Chief Complaint: 62 years old female with past medical history of rheumatoid arthritis hypertension diabetes chronic kidney disease CHF was transferred from [facility] to the ER due to abnormal labs hemoglobin 6.8 patient has lower extremity edema patient has shortness of breath at baseline at the ER hemoglobin was 7.7 patient was given unit of blood per nephrology recommendation patient also has sodium of 128 creatinine was elevated 2.4 decision was made to admit to the hospital for observation for evaluation and treatment of anemia lower extremity edema and elevated creatinine Review of Systems Review of Systems: Twelve system review was done negative except above PMFSH Past Medical History Medical History Anxiety and depression Breast implant capsular contracture CAD (coronary artery disease) Chronic renal failure Diabetes Essential hypertension GERD (gastroesophageal reflux disease) History of rectal or anal cancer chemo , radiation HLD (hyperlipidemia) Hypertension Nausea and vomiting Old myocardial infarction, greater than 8 weeks stents PAD (peripheral artery disease) Periprosthetic fracture around internal prosthetic left hip joint, subsequent encounter Port-A-Cath in place Rheumatoid arthritis Tobacco abuse Surgical History Surgical History H/O heart artery stent H/O rotator cuff surgery History of cardiovascular surgery History of cryosurgery Family History Family History Father Old age Mother Alcohol abuse Other Diabetes mellitus Gout Social History Social History Social History: the patient continues to smoke cigarettes approximately 1 and half packs of cigarettes a day. The patient lives with her and has 2 children. The patient denies any alcohol but she does use THC oil. The patient is currently not working. She was working at [employer] Her is the durable power gang drill operator for healthcare. Code status full code Smoking packs per day: 1 Smoking cigarettes per day: 20.0 Years smoked: 30 Smoking pack-years: 30.00 Smoking status: Current every day smoker Tobacco type: cigarettes Second hand tobacco smoke exposure: Yes Alcohol intake: never Substance use: never Substance use type: does not use Other substance usage details: THC OIL DAILY Lack of Transportation: YES Lack of Food: Never True Current Housing: I Have Housing Concerned About Future Housing: No Difficulty Paying Gas/Electric Bills: YES Difficulty Paying for Meds: No Currently Unemployed: No Education: High School Diploma/GED Difficulty w/ Childcare or Family Care: No Living arrangements: with family Additional living arrangements comments: [facility] TAKE CARE OF PT Occupation/Education: retired Gender identity (if verbalized by the patient): Female Sexual Orientation (if Verbalized by the Patient): Straight or Heterosexual Spiritual care concerns: No Meds Home Medications and Allergies Home Medications Medication Instructions Recorded Confirmed Type aspirin 81 mg tablet,delayed 81 mg PO DAILY 04/19/22 01/22/23 History release atorvastatin 40 mg tablet 40 mg PO QPM 04/19/22 01/22/23 History hydroxychloroquine 200 mg tablet 200 mg PO QAM 04/19/22 01/22/23 History valacyclovir 500 mg tablet 500 mg PO QPM 06/28/22 01/22/23 History furosemide 40 mg tablet 40 mg PO BID #60 tabs 07/04/22 01/22/23 Rx insulin lispro 100 unit/mL 1 - 5 units subcut TID.ARISSI #10 07/04/22 01/22/23 Rx subcutaneous solution (Humalog mL U-100 Insulin) insulin lispro 100 unit/mL 4 units (0.04 mL) subcut TIDWM 10 07/04/22 01/22/23 Rx subcutaneous solution (
--- NOTE | 2023-01-30 23:51 | ADMGEN ---
This patient, Janice Rodgers, was admitted to Medical Room 340-01. Patient/family oriented to hospital policies and general routines including ID bracelet, bed and alarms, visiting hours, pain management, procedures, bathroom and other care routines, personal items, smoking policy, room service/diet, and visiting hours. Information on how to activate the Rapid Response Team has been discussed. Patient/Family are encouraged to report perceived risks to care and to ask questions if they do not understand what they are told or what they should do.
[2023-01-31] VITALS (9 sets, daily range): BP systolic 159–204; BP diastolic 62–80; PULSE 60–90; RESP 16–18; TEMP 36.4–36.8; O2SAT 97–100; BMI 19.3
[2023-01-31] MEDS: FUROSEMIDE INJ 40 MG/4 ML VIAL IV PUSH ×3 (00:05→18:14)
[2023-01-31] MEDS: hydrALAZINE HCL 20 MG/ML VIAL 10 MG IV PUSH (00:05)
[2023-01-31 00:18] LABS: Glucose Point of Care 419 mg/dl (65-105)
[2023-01-31 00:23] LABS: Creatinine Urine 19.3 mg/dL
[2023-01-31 00:24] LABS: Appearance Urine Clear (Clear); Bacteria Urine None Seen /hpf; Bilirubin Urine Negative (Negative); Blood Urine Negative (Negative); Color Urine Yellow (Yellow); Glucose Urine UA 2+ mg/dL (Negative); Ketones Urine Trace mg/dL (Negative); Leukocyte Esterase Ur Negative LEU/UL (Negative); Nitrate Urine Negative (Negative); Non Pathogenic Casts 0-2; Protein Urine 3+ mg/dL (Negative); RBC Urine 0-2 /hpf (0-2); Specific Grav Ur 1.015 (1.001-1.035); Squamous Epithelial Cell Urine None seen /hpf (Few); Urobilinogen Urine 0.2 mg/dL (<2.0); WBC Urine 0-5 /hpf; pH Urine 6.5 (5.0-9.0)
[2023-01-31 00:39] LABS: Hematocrit 30.5 % (37.0-47.0); Hemoglobin 9.9 g/dL (12.0-15.0)
[2023-01-31 00:43] LABS: Add Urine Microscopic? YES
[2023-01-31 00:48] LABS: Potassium Urine Random 22.6 meq/L; Sodium Urine Random 87 meq/L
[2023-01-31 01:20] LABS: Creatine Kinase 161 U/L (30-135)
[2023-01-31] MEDS: hydrALAZINE HCL 50 MG TABLET 100 MG PO ×4 (01:23→18:14)
[2023-01-31 01:24] LABS: Iron 38 ug/dL (37-170)
[2023-01-31] MEDS: carvediloL 25 MG TABLET PO ×3 (01:24→20:32)
[2023-01-31] MEDS: INSULIN ASPART (*BKC) 100 UNITS/ML 12 UNITS SUB-Q (01:24)
[2023-01-31 01:34] LABS: Percent Iron Saturation 24 % (20-50)
[2023-01-31 01:35] LABS: Troponin I < 0.012 ng/mL (0.000-0.034)
[2023-01-31 05:14] LABS: Free T4 Free Thyroxine Reflex 1.54 ng/dL (0.78-2.19)
[2023-01-31 05:26] LABS: Basophils Percent Auto 0.6 % (0.2-1.2); Eosinophils Percent Auto 0.6 % (0-4.4); Hematocrit 27.4 % (37.0-47.0); Hemoglobin 9.1 g/dL (12.0-15.0); Immature Granulocyte Absolute 0.02 K/mm3 (0.00-0.031); Immature Granulocyte Percent A 0.4 % (0-0.5); Lymphocytes Absolute Auto 0.37 K/mm3 (0.9-3.2); Lymphocytes Percent Auto 7.5 % (18.3-44.2); Mean Corpuscular HGB Conc 33.2 g/dl (32-36); Mean Corpuscular Hemoglobin 31.9 pg (26-34); Mean Corpuscular Volume 96.1 fl (80-100); Mean Platelet Volume 10.2 fl (7.4-10.4); Monocytes Absolute Auto 0.7 K/mm3 (0.1-0.6); Monocytes Percent Auto 14.2 % (2.6-8.5); Neutrophils Absolute Auto 3.8 K/mm3 (1.3-6.7); Neutrophils Percent Auto 76.7 % (45.5-73.1); Platelet Count Result 207 k/mm3 (150-375); Red Blood Count 2.85 M/mm3 (4.2-5.4); Red Cell Distribution Width 21.9 % (11.5-14.5); White Blood Count 4.9 K/mm3 (4.5-10.0)
[2023-01-31 05:42] LABS: Alanine Aminotransferase 34 U/L (6-35); Albumin Level 2.7 g/dL (3.5-5.1); Alkaline Phosphatase 157 U/L (38-126); Anion Gap 7 mmol/L (8-16); Aspartate Amino Transferase 31 U/L (14-36); Bilirubin,Total 0.4 mg/dL (0.2-1.3); Blood Urea Nitrogen 60 mg/dL (7-17); Calcium 7.7 mg/dL (8.4-10.2); Carbon Dioxide 25 mmol/L (22-30); Chloride 99 mmol/L (98-107); Estimated CRCL calculation 19 ml/min; Estimated Glomerular Filt Rate 20; Glucose 263 mg/dL (65-110); Potassium 3.3 mmol/L (3.4-5.0); Sodium 131 mmol/L (137-145)
[2023-01-31 05:51] LABS: Troponin I < 0.012 ng/mL (0.000-0.034)
--- NOTE | 2023-01-31 06:00 | ECG_ITS ---
Measurements Intervals [place] Rate: 58 P: 49 MD: 143 QRS: -74 QRSD: 102 T: 72 QT: 501 QTc: 494 Interpretive Statements SINUS BRADYCARDIA INCOMPLETE RIGHT BUNDLE BRANCH BLOCK LEFT ANTERIOR FASCICULAR BLOCK BASELINE ARTIFACT- V4-V5 ABNORMAL ECG COMPARED TO ECG 01/30/2023 17:46:47 SINUS BRADYCARDIA NOW PRESENT Electronically Signed On 01-31-2023 11:57:30 EKG MANAGER by Nelson Solo D.O.
[2023-01-31] MEDS: CHOLECALCIFEROL 1,000 UNITS TABLET 2000 UNITS PO (08:31)
[2023-01-31] MEDS: FLUoxetine HCL 20 MG CAPSULE 60 MG PO (08:31)
[2023-01-31] MEDS: POTASSIUM CHLORIDE 20 MEQ TABLET PO (08:31)
[2023-01-31] MEDS: ASPIRIN 81 MG ENTERIC TABLET PO (08:32)
[2023-01-31] MEDS: ASCORBIC ACID 500 MG TABLET 1000 MG PO (08:32)
[2023-01-31] MEDS: PANTOPRAZOLE 40 MG TABLET PO ×2 (08:32→18:14)
[2023-01-31] MEDS: FAMOTIDINE 20 MG TABLET PO ×2 (08:32→20:32)
[2023-01-31] MEDS: HYDROXYCHLOROQUINE SULFATE 200 MG TABLET PO (08:32)
[2023-01-31 08:37] LABS: Erythrocyte Sedimentation Rate 137 mm/hr (0-20)
[2023-01-31 08:38] LABS: Glucose Point of Care 263 mg/dl (65-105)
[2023-01-31] MEDS: INSULIN ASPART (*BKC) 100 UNITS/ML SUB-Q ×5 (09:47→18:18)
[2023-01-31 11:27] LABS: Hematocrit 28.9 % (37.0-47.0); Hemoglobin 9.6 g/dL (12.0-15.0)
[2023-01-31 12:17] LABS: Glucose Point of Care 230 mg/dl (65-105)
[2023-01-31 12:33] LABS: Total Triiodothyronine (T3) 0.71 NG/ML (0.97-1.69)
[2023-01-31 12:38] LABS: Total Protein Urine Random 462 mg/dL
--- NOTE | 2023-01-31 12:55 | P.CONNP_ITS ---
Assessment and Plan Assessment and plan (1) DESIREE (acute kidney injury): Code(s): N17.9 - Acute kidney failure, unspecified Status: Acute Assessment and Plan: * suspect more progression of disease than DESIREE * recent hospitalization at [facility] (Jan 2023) * creatinine was 2.8mg/dl on admission * was being aggressively diuresed at that time * creatinine on discharge (01/18/23) was 2.49mg/dl * presumably volume status by the time of discharge (2) Stage 3b chronic kidney disease: Code(s): N18.32 - Chronic kidney disease, stage 3b Status: Chronic Assessment and Plan: * baseline creatinine in 2021 was 1.5 - 1.7mg/dl * presumably due to HTN, DM, vascular disease, and smoking * component of disease progression present (?) -- see #1 (3) Anemia: Code(s): D64.9 - Anemia, unspecified Status: Chronic Assessment and Plan: * likely due to CKD and possibly worsend by recent hospitalization a few weeks a go (i.e. frequent blood draws/phlebotomy...etc) * adequate iron stores by anemia studies * just recent dosed with ELIUD * s/p PRBC transfusion * follow trend of H/H (4) Acute exacerbation of CHF (congestive heart failure): Code(s): I50.9 - Heart failure, unspecified Status: Acute Assessment and Plan: * recent hospitalization at [facility] for the same * was on lasix gtt to promote diuresis during that stay * CXR results (pulmonary edema) and exam (LE edema) noted on admission; however, no evidence of hypoxia * based on previous Echo, suspect acute and of chronic diastolic CHF exacerbation * on IV lasix * follow I/Os and daily weights as well as renal function (5) Hyponatremia: Code(s): E87.1 - Hypo-osmolality and hyponatremia Status: Acute Assessment and Plan: * acute on chronic * presumably due in part from hypervolemia along with underlying CKD * better with diuresis * may benefit from fluid restriction * follow trend (6) Hypertension: Code(s): I10 - Essential (primary) hypertension Status: Chronic Assessment and Plan: * elevated overnight/suboptimal control * follow trend with diuresis * may need another BP agent (i.e. amlodipine) * follow trend of hemodynamics (7) Diabetes: Code(s): E11.9 - Type 2 diabetes mellitus without complications Status: Chronic Assessment and Plan: * follow accuchecks * glycemic control per hospitalists Will continue to follow. History of Present Illness Reason for Consult Consult date: 01/31/23 Reason for consult: acute renal failure (on chronic kidney disease) Chief Complaint Chief complaint: Anemia, DESIREE, hyponatremia History of Present Illness Narrative: The patient is not the best historian so most of the information I have obtained is from review of the electronic medical record as well as discussion with the physician/ nurses involved in her care as well as review of records from her previous hospitalization. The patient is a 62-year-old female with a past medical history as outlined below who presented to [facility] Emergency room due to abnormal labs. The patient was at [facility] for her scheduled dose of Epogen. Labs were drawn at that time in anticipation of her future appointments with her primary care physician as well as her brine mixer operator. These labs came back abnormal with a hemoglobin of 6.8 and the patient was called primary care physician to come to the ER for further assessment.
--- NOTE | 2023-01-31 12:55 | PM.CNNEP ---
Assessment and Plan Assessment and plan (1) DESIREE (acute kidney injury): Code(s): N17.9 - Acute kidney failure, unspecified Status: Acute Assessment and Plan: suspect more progression of disease than DESIREE recent hospitalization at [facility] (Jan 2023) creatinine was 2.8mg/dl on admission was being aggressively diuresed at that time creatinine on discharge (01/18/23) was 2.49mg/dl presumably volume status by the time of discharge (2) Stage 3b chronic kidney disease: Code(s): N18.32 - Chronic kidney disease, stage 3b Status: Chronic Assessment and Plan: baseline creatinine in 2021 was 1.5 - 1.7mg/dl presumably due to HTN, DM, vascular disease, and smoking component of disease progression present (?) -- see #1 (3) Anemia: Code(s): D64.9 - Anemia, unspecified Status: Chronic Assessment and Plan: likely due to CKD and possibly worsend by recent hospitalization a few weeks ago (i.e. frequent blood draws/phlebotomy...etc) adequate iron stores by anemia studies just recent dosed with ELIUD s/p PRBC transfusion follow trend of H/H (4) Acute exacerbation of CHF (congestive heart failure): Code(s): I50.9 - Heart failure, unspecified Status: Acute Assessment and Plan: recent hospitalization at [facility] for the same was on lasix gtt to promote diuresis during that stay CXR results (pulmonary edema) and exam (LE edema) noted on admission; however, no evidence of hypoxia based on previous Echo, suspect acute and of chronic diastolic CHF exacerbation on IV lasix follow I/Os and daily weights as well as renal function (5) Hyponatremia: Code(s): E87.1 - Hypo-osmolality and hyponatremia Status: Acute Assessment and Plan: acute on chronic presumably due in part from hypervolemia along with underlying CKD better with diuresis may benefit from fluid restriction follow trend (6) Hypertension: Code(s): I10 - Essential (primary) hypertension Status: Chronic Assessment and Plan: elevated overnight/suboptimal control follow trend with diuresis may need another BP agent (i.e. amlodipine) follow trend of hemodynamics (7) Diabetes: Code(s): E11.9 - Type 2 diabetes mellitus without complications Status: Chronic Assessment and Plan: follow accuchecks glycemic control per hospitalists Will continue to follow. History of Present Illness Reason for Consult Consult date: 01/31/23 Reason for consult: acute renal failure (on chronic kidney disease) Chief Complaint Chief complaint: Anemia, DESIREE, hyponatremia History of Present Illness Narrative: The patient is not the best historian so most of the information I have obtained is from review of the electronic medical record as well as discussion with the physician/ nurses involved in her care as well as review of records from her previous hospitalization. The patient is a 62-year-old female with a past medical history as outlined below who presented to [facility] Emergency room due to abnormal labs. The patient was at [facility] for her scheduled dose of Epogen. Labs were drawn at that time in anticipation of her future appointments with her primary care physician as well as her [employer]. These labs came back abnormal with a hemoglobin of 6.8 and the patient was called primary care physician to come to the ER for further assessment. However, for reasons that are not entirely clear, the patient did not go back to [facility] where she gets the majority of her care and instead came here to [facility] for this issue. Workup and evaluation in the emergency room demonstrated the patient to be hemodynamically stable and repeat blood work showed her hemoglobin somewhat better at 7.7. Her chemistry showed labs consistent with her known history of chronic
[2023-01-31 16:50] LABS: Glucose Point of Care 183 mg/dl (65-105)
--- NOTE | 2023-01-31 16:51 | PM.IMPN ---
Progress Note: A&P Assessment and Plan (1) Acute exacerbation of CHF (congestive heart failure): Code(s): I50.9 - Heart failure, unspecified Status: Acute Assessment and Plan: CXR reviewed consistent with pulmonary edema. No BNP. Not on O2. Leg edema noted. Lasix IV started. Echo in December with EF 60-65% and diastolic dysfunction. Most likely acute and of chronic diastolic CHF exacerbation. Continue IV Lasix. Monitor closely renal function. Check LE dopplers (2) Acute renal failure superimposed on stage 3 chronic kidney disease: Code(s): N17.9 - Acute kidney failure, unspecified; N18.30 - Chronic kidney disease, stage 3 unspecified Status: Acute Assessment and Plan: Cr last year in August was 1.5-1.8 range. Cr here was 2.4. Unclear if this is new baseline or acute process. Acute process could be related to anemia. No contrast exposure or HoTN events. Nephrology consulted. Renal US showing no acute findings. Follow (3) Anemia: Code(s): D64.9 - Anemia, unspecified Status: Acute Assessment and Plan: Patient was noted to be anemic by outside labs. Hgb was 6.8 by outside labs but 7.7 here in the ED. She did receive a transfusion of 1U PRBC. Hgb climbed to the 9 range and thus far has remained stable. Most likely acute worsening of chronic anemia related to her underlying renal disease. Iron studies noted. Follow (4) Acute hyponatremia: Code(s): E87.1 - Hypo-osmolality and hyponatremia Status: Resolved Assessment and Plan: Patient has chronic hyponatremia with Na mostyl 129-135 range. Na 128 on admission most likely related to hypervolemia secondary to CHF. She was started on IV diuretics and Na has improved to 131. Follow (5) Diabetes: Code(s): E11.9 - Type 2 diabetes mellitus without complications Status: Chronic Assessment and Plan: A1c7.6 in August. The patient's blood glucose was reviewed on 3/3 Glucose better controlled. Continue AccuCheks covering with sliding scale. Hypoglycemia protocol available as needed. Continue current medications. Not on long active regiment. Will discuss with family. Check A1c (6) CAD (coronary artery disease): Code(s): I25.10 - Atherosclerotic heart disease of [place] coronary artery without angina pectoris Status: Acute Assessment and Plan: Stable. Continue ASA, Coreg and Lipitor. (7) Hypertension: Code(s): I10 - Essential (primary) hypertension Status: Chronic Assessment and Plan: Patient's blood pressure was reviewed on 01/31 Blood pressure remains poorly controlled. Will continue current medications. (8) PAD (peripheral artery disease): Code(s): I73.9 - Peripheral vascular disease, unspecified Status: Acute Assessment and Plan: Stable. Continue Aspirin and Lipitor. (9) Rheumatoid arthritis: Code(s): M06.9 - Rheumatoid arthritis, unspecified Status: Chronic Assessment and Plan: Stable. Patient on hydroxychloroquine which was continued. ESR 137 Subjective Date/time seen: 01/31/23 16:51 Interval history: 62yo with CAD, PAD, DM, CKD and RA here for low Hgb. Called by staff with pateint became weak when standing and had to be lowered to the floor. No injury. No head trauma. She denies CP or SOB. Patient is alert but mildly confused. no family in the room. Exam Narrative: AF 98.3 168/78 60 16 99% ra Gen - NARD Chest - few basilar crackles o/w clear CV - RRR S1/S2 Abd - soft, NT/ND, +BS Ext - bilateral lower extremity pitting edema. Neuro - AO x2. Psych - normal mood and affect Skin - warm and dry. left forearm dressing clean and dry Objective Data Vital Signs Vital Signs: Vital Signs - 24 hr 01/30/23 16:55 01/30/23 18:24 01/30/23 19:55 Temperature 97.7 F Pulse Rate 62 63 62 Respiratory Rate 16 16 17 Blood Pressure 154/83 H 171/78 H Pulse Oximetry 100 95 96 Ox
[2023-01-31 17:20] LABS: Hematocrit 27.8 % (37.0-47.0); Hemoglobin 9.3 g/dL (12.0-15.0)
[2023-01-31] MEDS: valACYclovir HCL 500 MG TABLET PO (18:14)
[2023-01-31] MEDS: ATORVASTATIN 40 MG TABLET PO (18:14)
[2023-01-31] MEDS: ACETAMINOPHEN 325 MG TABLET 650 MG PO (20:34)
[2023-01-31 22:01] LABS: Glucose Point of Care 171 mg/dl (65-105)
[2023-01-31 23:50] LABS: Hematocrit 25.3 % (37.0-47.0); Hemoglobin 8.5 g/dL (12.0-15.0)
[2023-02-01 04:28] VITALS: BP 154/71; PULSE 72; RESP 18; TEMP 36.7; O2SAT 96
[2023-02-01 06:15] LABS: Basophils Percent Auto 0.6 % (0.2-1.2); Eosinophils Percent Auto 0.6 % (0-4.4); Hematocrit 27.5 % (37.0-47.0); Hemoglobin 9.2 g/dL (12.0-15.0); Immature Granulocyte Absolute 0.02 K/mm3 (0.00-0.031); Immature Granulocyte Percent A 0.4 % (0-0.5); Lymphocytes Percent Auto 5.6 % (18.3-44.2); Mean Corpuscular HGB Conc 33.5 g/dl (32-36); Mean Corpuscular Hemoglobin 32.7 pg (26-34); Mean Corpuscular Volume 97.9 fl (80-100); Mean Platelet Volume 10.5 fl (7.4-10.4); Monocytes Absolute Auto 0.5 K/mm3 (0.1-0.6); Neutrophils Absolute Auto 4.4 K/mm3 (1.3-6.7); Neutrophils Percent Auto 82.8 % (45.5-73.1); Platelet Count Result 216 k/mm3 (150-375); Red Blood Count 2.81 M/mm3 (4.2-5.4); Red Cell Distribution Width 22.4 % (11.5-14.5); White Blood Count 5.3 K/mm3 (4.5-10.0)
[2023-02-01 06:24] LABS: Alanine Aminotransferase 31 U/L (6-35); Albumin Level 2.5 g/dL (3.5-5.1); Alkaline Phosphatase 149 U/L (38-126); Anion Gap 9 mmol/L (8-16); Aspartate Amino Transferase 25 U/L (14-36); Bilirubin,Total 0.4 mg/dL (0.2-1.3); Blood Urea Nitrogen 56 mg/dL (7-17); Calcium 7.1 mg/dL (8.4-10.2); Carbon Dioxide 22 mmol/L (22-30); Chloride 100 mmol/L (98-107); Estimated CRCL calculation 18 ml/min; Estimated Glomerular Filt Rate 19; Glucose 459 mg/dL (65-110); Potassium 3.8 mmol/L (3.4-5.0); Sodium 131 mmol/L (137-145)
[2023-02-01 06:31] LABS: Hemoglobin A1C 7.1 % (<5.7)
[2023-02-01 06:42] LABS: Anisocytosis 3+ (NORMAL); Burr Cells 1+ (NORMAL); Platelet Estimate Adequate (Adequate); Schistocytes None Seen (NORMAL)
[2023-02-01] MEDS: FAMOTIDINE 20 MG TABLET PO ×2 (08:41→20:42)
[2023-02-01] MEDS: ASCORBIC ACID 500 MG TABLET 1000 MG PO (08:43)
[2023-02-01] MEDS: HYDROXYCHLOROQUINE SULFATE 200 MG TABLET PO (08:43)
[2023-02-01] MEDS: PANTOPRAZOLE 40 MG TABLET PO ×2 (08:44→17:51)
[2023-02-01] MEDS: CHOLECALCIFEROL 1,000 UNITS TABLET 2000 UNITS PO (08:44)
[2023-02-01] MEDS: ASPIRIN 81 MG ENTERIC TABLET PO (08:44)
[2023-02-01] MEDS: FLUoxetine HCL 20 MG CAPSULE 60 MG PO (08:44)
[2023-02-01 08:45] VITALS: PULSE 74; RESP 18; O2SAT 96
[2023-02-01] MEDS: FUROSEMIDE INJ 40 MG/4 ML VIAL IV PUSH (08:45)
[2023-02-01] MEDS: hydrALAZINE HCL 50 MG TABLET 100 MG PO ×3 (08:45→17:51)
[2023-02-01 08:46] VITALS: PULSE 74
[2023-02-01] MEDS: carvediloL 25 MG TABLET PO ×2 (08:46→20:42)
[2023-02-01 08:50] LABS: Glucose Point of Care 476 mg/dl (65-105)
[2023-02-01 08:50] LABS: Glucose Point of Care 478 mg/dl (65-105)
[2023-02-01] MEDS: INSULIN ASPART (*BKC) 100 UNITS/ML SUB-Q ×5 (08:51→17:56)
[2023-02-01] MEDS: INSULIN GLARGINE (*BKC) 100 UNITS/ML 8 UNITS SUB-Q (09:10)
[2023-02-01 11:20] LABS: Glucose Point of Care 466 mg/dl (65-105)
--- NOTE | 2023-02-01 11:36 | PM.PNNEP ---
Progress Note: A&P Assessment and Plan (1) DESIREE (acute kidney injury): Code(s): N17.9 - Acute kidney failure, unspecified Status: Acute Assessment and Plan: creatinine a bit higher due to need for diuretics/diuresis suspect more progression of disease than DESIREE recent hospitalization at [facility] (Jan 2023) creatinine was 2.8mg/dl on admission was being aggressively diuresed at that time creatinine on discharge (01/18/23) was 2.49mg/dl presumably she needs a higher creatinine to maintain volume status (?) (2) Stage 3b chronic kidney disease: Code(s): N18.32 - Chronic kidney disease, stage 3b Status: Chronic Assessment and Plan: baseline creatinine in 2021 was 1.5 - 1.7mg/dl presumably due to HTN, DM, vascular disease, and smoking component of disease progression present (?) -- see #1 (3) Anemia: Code(s): D64.9 - Anemia, unspecified Status: Chronic Assessment and Plan: likely due to CKD and possibly worsened by recent hospitalization a few weeks ago (i.e. frequent blood draws/phlebotomy...etc) adequate iron stores by anemia studies just recent dosed with ELIUD s/p PRBC transfusion follow trend of H/H (4) Acute exacerbation of CHF (congestive heart failure): Code(s): I50.9 - Heart failure, unspecified Status: Acute Assessment and Plan: recent hospitalization at [facility] for the same was on lasix gtt to promote diuresis during that stay CXR results (pulmonary edema) and exam (LE edema) noted on admission; however, no evidence of hypoxia based on previous Echo, suspect acute and of chronic diastolic CHF exacerbation on IVl lasix - transition to oral lasix (?); follow CXR follow I/Os and daily weights as well as renal function (5) Hyponatremia: Code(s): E87.1 - Hypo-osmolality and hyponatremia Status: Acute Assessment and Plan: acute on chronic presumably due in part from hypervolemia along with underlying CKD better with diuresis may benefit from fluid restriction follow trend (6) Hypertension: Code(s): I10 - Essential (primary) hypertension Status: Chronic Assessment and Plan: suboptimal control follow trend with diuresis may need another BP agent (i.e. amlodipine) follow trend of hemodynamics (7) Diabetes: Code(s): E11.9 - Type 2 diabetes mellitus without complications Status: Chronic Assessment and Plan: follow accuchecks glycemic control per hospitalists Will continue to follow. Subjective Date/time seen: 02/01/23 11:36 No apparent distress voiced this AM; reports some nausea/vomiting earlier this AM but feels better currently; no other issues/problems to report at this time; breathing and lower edema seems stable if not better. Exam Narrative: General: WD/WN female in NAD Heart: normal S1 and S2; no rub Lungs: decreased at bases Abdomen: soft, nontender, nondistended, positive bowel sounds Extremities: no cyanosis or clubbing; trace edema Skin: warm and dry Objective Data Vital Signs Vital Signs: Vital Signs Temp Pulse Resp BP Pulse Ox O2 Del Method 02/01/23 08:45 74 18 96 Room Air 02/01/23 08:46 74 02/01/23 04:28 98.1 F 72 18 154/71 H 96 01/31/23 20:00 68 18 100 Room Air 01/31/23 20:28 97.8 F 68 18 181/76 H 100 01/31/23 14:00 98.3 F 60 16 168/78 H 99 01/31/23 13:28 97.8 F 68 16 168/78 H 97 Intake/Output Intake/Output: Intake & Output 01/29/23 01/30/23 01/31/23 02/01/23 23:59 23:59 23:59 23:59 Intake Total 350 2200 440 Output Total 3300 Balance 350 -1100 440 Meds/Results Medications: Active Medications Generic Name Dose Route Start Last Admin Trade Name Freq PRN Reason Stop Dose Admin Acetaminophen 650 mg 01/30/23 22:57 01/31/23 20:34 Acetaminophen 325 Mg Tablet PO 650 mg Q6H PRN Adm
--- NOTE | 2023-02-01 11:36 | P.PNNP_ITS ---
Progress Note: A&P Assessment and Plan (1) DESIREE (acute kidney injury): Code(s): N17.9 - Acute kidney failure, unspecified Status: Acute Assessment and Plan: * creatinine a bit higher due to need for diuretics/diuresis * suspect more progression of disease than DESIREE * recent hospitalization at [facility] (Jan 2023) * creatinine was 2.8mg/dl on admission * was being aggressively diuresed at that time * creatinine on discharge (01/18/23) was 2.49mg/dl * presumably she needs a higher creatinine to maintain volume status (?) (2) Stage 3b chronic kidney disease: Code(s): N18.32 - Chronic kidney disease, stage 3b Status: Chronic Assessment and Plan: * baseline creatinine in 2021 was 1.5 - 1.7mg/dl * presumably due to HTN, DM, vascular disease, and smoking * component of disease progression present (?) -- see #1 (3) Anemia: Code(s): D64.9 - Anemia, unspecified Status: Chronic Assessment and Plan: * likely due to CKD and possibly worsened by recent hospitalization a few weeks ago (i.e. frequent blood draws/phlebotomy...etc) * adequate iron stores by anemia studies * just recent dosed with ELIUD * s/p PRBC transfusion * follow trend of H/H (4) Acute exacerbation of CHF (congestive heart failure): Code(s): I50.9 - Heart failure, unspecified Status: Acute Assessment and Plan: * recent hospitalization at [facility] for the same * was on lasix gtt to promote diuresis during that stay * CXR results (pulmonary edema) and exam (LE edema) noted on admission; however, no evidence of hypoxia * based on previous Echo, suspect acute and of chronic diastolic CHF exacerbation * on IVl lasix - transition to oral lasix (?); follow CXR * follow I/Os and daily weights as well as renal function (5) Hyponatremia: Code(s): E87.1 - Hypo-osmolality and hyponatremia Status: Acute Assessment and Plan: * acute on chronic * presumably due in part from hypervolemia along with underlying CKD * better with diuresis * may benefit from fluid restriction * follow trend (6) Hypertension: Code(s): I10 - Essential (primary) hypertension Status: Chronic Assessment and Plan: * suboptimal control * follow trend with diuresis * may need another BP agent (i.e. amlodipine) * follow trend of hemodynamics (7) Diabetes: Code(s): E11.9 - Type 2 diabetes mellitus without complications Status: Chronic Assessment and Plan: * follow accuchecks * glycemic control per hospitalists Will continue to follow. Subjective Date/time seen: 02/01/23 11:36 No apparent distress voiced this AM; reports some nausea/vomiting earlier this AM but feels better currently; no other issues/problems to report at this time; breathing and lower edema seems stable if not better. Exam Narrative: General: WD/WN female in NAD Heart: normal S1 and S2; no rub Lungs: decreased at bases Abdomen: soft, nontender, nondistended, positive bowel sounds Extremities: no cyanosis or clubbing; trace edema Skin: warm and dry Objective Data Vital Signs Vital Signs: Vital Signs Temp Pulse Resp BP Pulse Ox O2 Del Method 02/01/23 08:45 74 18 96 Room Air 02/01/23 08:46 74 02/01/23 04:28 98.1 F 72 18 154/71 H 96 01/31/23 20:00
--- NOTE | 2023-02-01 11:39 | PM.IMPN ---
Progress Note: A&P Assessment and Plan (1) Acute exacerbation of CHF (congestive heart failure): Code(s): I50.9 - Heart failure, unspecified Status: Acute Assessment and Plan: CXR reviewed consistent with pulmonary edema. Not on O2. Lasix IV started. Leg edema noted and now better. Echo in December with EF 60-65% and diastolic dysfunction. Most likely acute and of chronic diastolic CHF exacerbation. Cr has climbed to 2.6. Will change back to oral Lasix. Monitor closely renal function. LE dopplers ordered. Repeat CXR. (2) Acute renal failure superimposed on stage 3 chronic kidney disease: Code(s): N17.9 - Acute kidney failure, unspecified; N18.30 - Chronic kidney disease, stage 3 unspecified Status: Acute Assessment and Plan: Cr last year in August was 1.5-1.8 range. Cr here was 2.4. Renal US showing no acute findings. Unclear if this is new baseline or acute process. Acute process could be related to anemia. No contrast exposure or HoTN events. Cr worse today related to the Lasix. Nephrology consulted. Follow (3) Anemia: Code(s): D64.9 - Anemia, unspecified Status: Acute Assessment and Plan: Patient was noted to be anemic by outside labs. Hgb was 6.8 by outside labs but 7.7 here in the ED. Most likely acute worsening of chronic anemia related to her underlying renal disease. Iron studies noted. She did receive a transfusion of 1U PRBC. Hgb climbed to the 9 range and thus far has remained stable. Follow (4) Acute hyponatremia: Code(s): E87.1 - Hypo-osmolality and hyponatremia Status: Resolved Assessment and Plan: Patient has chronic hyponatremia with Na mostly 129-135 range. Na 128 on admission most likely related to hypervolemia secondary to CHF. She was started on IV diuretics and Na has improved to 131. Follow (5) Diabetes: Code(s): E11.9 - Type 2 diabetes mellitus without complications Status: Chronic Assessment and Plan: A1c7.1. The patient's blood glucose was reviewed on 3/4 Glucose poorly controlled. Continue AccuCheks covering with sliding scale. Hypoglycemia protocol available as needed. Continue home meal time insulin. Not on long active regiment so add Lantus this morning. Will discuss with family. (6) CAD (coronary artery disease): Code(s): I25.10 - Atherosclerotic heart disease of [place] coronary artery without angina pectoris Status: Acute Assessment and Plan: Stable. Continue ASA, Coreg and Lipitor. (7) Hypertension: Code(s): I10 - Essential (primary) hypertension Status: Chronic Assessment and Plan: Patient's blood pressure was reviewed on 3/ Blood pressure remains poorly controlled. Will continue current medications. Add Norvasc (8) PAD (peripheral artery disease): Code(s): I73.9 - Peripheral vascular disease, unspecified Status: Acute Assessment and Plan: Stable. Continue Aspirin and Lipitor. (9) Rheumatoid arthritis: Code(s): M06.9 - Rheumatoid arthritis, unspecified Status: Chronic Assessment and Plan: Stable. Patient on hydroxychloroquine which was continued. ESR 137 Subjective Date/time seen: 02/01/23 11:39 Interval history: 62yo with CAD, PAD, DM, CKD and RA here for low Hgb. Nausea and vomiting this mornings but she states is not unusual for her. It 'happens a lot'. She feels well otherwise without complaints RN states that the was here yesterday and was upset the patient sustained a left forearm skin tear from her controlled lower to the ground when she became weak. He threatened to bring a gun to the hospital. Exam Narrative: AF 98.1 154/71 74 18 96% ra Gen - NARD Chest - mid and lower basilar inspiratory crackles. nml RR CV - RRR S1/S2 Abd - soft, NT/ND, +BS Ext - no pedal edema. Psych - normal mood and affect Skin - warm and dry. left forearm dressing clean and dry. sm
[2023-02-01] MEDS: amLODIPine BESYLATE 2.5 MG TABLET PO (12:31)
[2023-02-01 13:15] LABS: Glucose Point of Care 438 mg/dl (65-105)
[2023-02-01 14:00] VITALS: BP 190/76; PULSE 68; RESP 20; TEMP 36.5; O2SAT 95
[2023-02-01 15:19] LABS: Glucose Point of Care 441 mg/dl (65-105)
[2023-02-01] MEDS: INSULIN ASPART (*BKC) 100 UNITS/ML 10 UNITS SUB-Q (15:36)
[2023-02-01 17:27] LABS: Glucose Point of Care 360 mg/dl (65-105)
[2023-02-01] MEDS: FUROSEMIDE 40 MG TABLET PO (17:50)
[2023-02-01] MEDS: valACYclovir HCL 500 MG TABLET PO (17:52)
[2023-02-01] MEDS: ATORVASTATIN 40 MG TABLET PO (17:52)
[2023-02-01 20:00] VITALS: PULSE 80; RESP 17; O2SAT 98
[2023-02-01 20:39] LABS: Glucose Point of Care 184 mg/dl (65-105)
[2023-02-01 21:44] VITALS: BP 177/63; PULSE 73; RESP 16; TEMP 35.9; O2SAT 99
[2023-02-02] VITALS (7 sets, daily range): BP systolic 141–170; BP diastolic 66–73; PULSE 64–103; RESP 16–22; TEMP 35.7–36.6; O2SAT 95–100
[2023-02-02] MEDS: ACETAMINOPHEN 325 MG TABLET 650 MG PO ×2 (02:05→20:13)
[2023-02-02 02:37] LABS: Basophils Percent Auto 0.6 % (0.2-1.2); Eosinophils Percent Auto 0.6 % (0-4.4); Hematocrit 25.8 % (37.0-47.0); Hemoglobin 8.5 g/dL (12.0-15.0); Immature Granulocyte Absolute 0.02 K/mm3 (0.00-0.031); Immature Granulocyte Percent A 0.3 % (0-0.5); Lymphocytes Percent Auto 8.1 % (18.3-44.2); Mean Corpuscular HGB Conc 32.9 g/dl (32-36); Mean Corpuscular Hemoglobin 32.3 pg (26-34); Mean Corpuscular Volume 98.1 fl (80-100); Mean Platelet Volume 10.4 fl (7.4-10.4); Monocytes Absolute Auto 0.7 K/mm3 (0.1-0.6); Monocytes Percent Auto 11.5 % (2.6-8.5); Neutrophils Absolute Auto 4.9 K/mm3 (1.3-6.7); Neutrophils Percent Auto 78.9 % (45.5-73.1); Platelet Count Result 221 k/mm3 (150-375); Red Blood Count 2.63 M/mm3 (4.2-5.4); Red Cell Distribution Width 22.3 % (11.5-14.5); White Blood Count 6.2 K/mm3 (4.5-10.0)
[2023-02-02 02:47] LABS: Alanine Aminotransferase 30 U/L (6-35); Albumin Level 2.5 g/dL (3.5-5.1); Alkaline Phosphatase 130 U/L (38-126); Anion Gap 2 mmol/L (8-16); Aspartate Amino Transferase 29 U/L (14-36); Bilirubin,Total 0.3 mg/dL (0.2-1.3); Blood Urea Nitrogen 64 mg/dL (7-17); Calcium 7.5 mg/dL (8.4-10.2); Carbon Dioxide 28 mmol/L (22-30); Chloride 98 mmol/L (98-107); Estimated CRCL calculation 18 ml/min; Estimated Glomerular Filt Rate 19; Glucose 98 mg/dL (65-110); Potassium 3.4 mmol/L (3.4-5.0); Sodium 128 mmol/L (137-145)
[2023-02-02 03:09] LABS: Platelet Estimate Adequate (Adequate)
[2023-02-02 03:10] LABS: Anisocytosis 2+ (NORMAL)
[2023-02-02 03:11] LABS: Schistocytes Rare (NORMAL)
[2023-02-02] MEDS: hydrALAZINE HCL 20 MG/ML VIAL 10 MG IV PUSH (06:27)
[2023-02-02 08:35] LABS: Glucose Point of Care 382 mg/dl (65-105)
[2023-02-02] MEDS: INSULIN ASPART (*BKC) 100 UNITS/ML SUB-Q ×6 (09:05→17:53)
[2023-02-02] MEDS: FLUoxetine HCL 20 MG CAPSULE 60 MG PO (09:17)
[2023-02-02] MEDS: amLODIPine BESYLATE 2.5 MG TABLET PO (09:17)
[2023-02-02] MEDS: carvediloL 25 MG TABLET PO ×2 (09:18→20:13)
[2023-02-02] MEDS: FAMOTIDINE 20 MG TABLET PO ×2 (09:18→20:13)
[2023-02-02] MEDS: ASPIRIN 81 MG ENTERIC TABLET PO (09:18)
[2023-02-02] MEDS: FUROSEMIDE 40 MG TABLET PO ×2 (09:18→18:01)
[2023-02-02] MEDS: ASCORBIC ACID 500 MG TABLET 1000 MG PO (09:18)
[2023-02-02] MEDS: PANTOPRAZOLE 40 MG TABLET PO ×2 (09:18→18:02)
[2023-02-02] MEDS: HYDROXYCHLOROQUINE SULFATE 200 MG TABLET PO (09:18)
[2023-02-02] MEDS: CHOLECALCIFEROL 1,000 UNITS TABLET 2000 UNITS PO (09:19)
[2023-02-02] MEDS: hydrALAZINE HCL 50 MG TABLET 100 MG PO ×3 (09:20→18:01)
[2023-02-02] MEDS: INSULIN GLARGINE (*BKC) 100 UNITS/ML 10 UNITS SUB-Q (09:30)
--- NOTE | 2023-02-02 10:58 | PM.IMPN ---
Progress Note: A&P Assessment and Plan (1) Acute exacerbation of CHF (congestive heart failure): Code(s): I50.9 - Heart failure, unspecified Status: Acute Assessment and Plan: CXR reviewed consistent with pulmonary edema. Not on O2. Lasix IV was started. Leg edema noted and now resolved. Echo in December with EF 60-65% and diastolic dysfunction. Most likely acute and of chronic diastolic CHF exacerbation. Cr climbed to 2.6. She was changed back to oral Lasix. Cr stable at 2.6. Monitor closely renal function. LE dopplers negative for DVT. (2) Acute renal failure superimposed on stage 3 chronic kidney disease: Code(s): N17.9 - Acute kidney failure, unspecified; N18.30 - Chronic kidney disease, stage 3 unspecified Status: Acute Assessment and Plan: Cr last year in August was 1.5-1.8 range. Cr here was 2.4. Renal US showing no acute findings. Unclear if this is new baseline or acute process. Acute process could be related to anemia. No contrast exposure or HoTN events. Cr climbed to 2.6 but stable now. Nephrology consulted. Follow (3) Anemia: Code(s): D64.9 - Anemia, unspecified Status: Chronic Assessment and Plan: Patient was noted to be anemic by outside labs. Hgb was 6.8 by outside labs but 7.7 here in the ED. Most likely acute worsening of chronic anemia related to her underlying renal disease. Iron studies noted and more consistent with anemia of chronic disease from her CKD. B12/Folate normal in August. She did receive a transfusion of 1U PRBC. Hgb climbed to the 9 range and thus far has remained stable in the 8-9 range. Follow (4) Acute hyponatremia: Code(s): E87.1 - Hypo-osmolality and hyponatremia Status: Resolved Assessment and Plan: Patient has chronic hyponatremia with Na mostly 129-135 range. Na 128 on admission most likely related to hypervolemia secondary to CHF. She was started on IV diuretics but Na still in the 128-131 range. Follow (5) Diabetes: Code(s): E11.9 - Type 2 diabetes mellitus without complications Status: Chronic Assessment and Plan: A1c7.1. The patient's blood glucose was reviewed on 02/02 Glucose poorly controlled with wide flucuations. Continue AccuCheks covering with sliding scale. Hypoglycemia protocol available as needed. Continue home meal time insulin. Continue Lantus this morning. (6) CAD (coronary artery disease): Code(s): I25.10 - Atherosclerotic heart disease of [place] coronary artery without angina pectoris Status: Acute Assessment and Plan: Stable. Continue ASA, Coreg and Lipitor. (7) Hypertension: Code(s): I10 - Essential (primary) hypertension Status: Chronic Assessment and Plan: Patient's blood pressure was reviewed on 02/02 Blood pressure remains poorly controlled. Will continue current medications. Spoke with who said that patient was on Norvasc but taken off of this due to leg edema. He requests Cardiology to manage her HTN. Dr Solo consulted. Continue low dose Norvasc. Already on hydralazine - consider Imdur but will defer to Dr Solo (8) PAD (peripheral artery disease): Code(s): I73.9 - Peripheral vascular disease, unspecified Status: Acute Assessment and Plan: Stable. Continue Aspirin and Lipitor. (9) Rheumatoid arthritis: Code(s): M06.9 - Rheumatoid arthritis, unspecified Status: Chronic Assessment and Plan: Stable. Patient on hydroxychloroquine which was continued. ESR 137 Plan Breast mass - Mammogram report is available from 12/20/2022 which showed no masses, asymmetries, suspicious calcifications or architectural distortions. Spoke with who felt this was new. Will proceed with breast US bilaterally since exam limited. Plan for biopsy of any palpable mass. This can be done as outpatient. Subjective Date/time seen: 02/02/23 10:58 Interval history: 62yo
--- NOTE | 2023-02-02 12:05 | P.PNNP_ITS ---
Progress Note: A&P Assessment and Plan (1) DESIREE (acute kidney injury): Code(s): N17.9 - Acute kidney failure, unspecified Status: Acute Assessment and Plan: * creatinine a bit higher probably due to need for diuretics/diuresis * however, still suspect an element of progression of disease rather than DESIREE * recent hospitalization at [facility] (Jan 2023) * creatinine was 2.8mg/dl on admission * was being aggressively diuresed at that time * creatinine on discharge (01/18/23) was 2.49mg/dl * presumably she needs a higher creatinine to maintain volume status (?) (2) Stage 3b chronic kidney disease: Code(s): N18.32 - Chronic kidney disease, stage 3b Status: Chronic Assessment and Plan: * baseline creatinine in 2021 was 1.5 - 1.7mg/dl * presumably due to HTN, DM, vascular disease, and smoking * component of disease progression present (?) -- see #1 (3) Anemia: Code(s): D64.9 - Anemia, unspecified Status: Chronic Assessment and Plan: * likely due to CKD and possibly worsened by recent hospitalization a few weeks ago (i.e. frequent blood draws/phlebotomy...etc) * adequate iron stores by anemia studies * just recent dosed with ELIUD * s/p PRBC transfusion * follow trend of H/H (4) Acute exacerbation of CHF (congestive heart failure): Code(s): I50.9 - Heart failure, unspecified Status: Acute Assessment and Plan: * recent hospitalization at [facility] for the same * was on lasix gtt to promote diuresis during that stay * CXR results (pulmonary edema) and exam (LE edema) noted on admission; however, no evidence of hypoxia * based on previous Echo, suspect acute and of chronic diastolic CHF exacerbation * transitioned to oral lasix; follow CXR * follow I/Os and daily weights as well as renal function (5) Hyponatremia: Code(s): E87.1 - Hypo-osmolality and hyponatremia Status: Acute Assessment and Plan: * acute on chronic * runs anywhere from 126 - 135mmol/L * presumably due in part from hypervolemia along with underlying CKD as well as fluctuating blod sugar control * some improvement noted with IV diuresis * add fluid restriction * follow trend (6) Hypertension: Code(s): I10 - Essential (primary) hypertension Status: Chronic Assessment and Plan: * suboptimal control * follow trend with diuresis * amlodipine added * Cardiology consulted per 's request for further management * apparently was on amlodipine before was discontinued due issues with LE edema * follow trend of hemodynamics (7) Diabetes: Code(s): E11.9 - Type 2 diabetes mellitus without complications Status: Chronic Assessment and Plan: * follow accuchecks * glycemic control per hospitalists Will continue to follow. Subjective Date/time seen: 02/02/23 12:05 Appears to be doing reasonably well; no complaints of shortness of breath and lower extremity edema seems to have improved/resolved at this time; tolerating o ral diuretic therapy and renal function relatively stable; H/H relatively stable since PRBC transfusion as well; no other issues/events overnight or earlier this AM. Exam Narrative: General: WD/WN female in NAD Heart: normal S1 and S2; no rub Lungs: decreased at bases Abdomen: soft, nontender, nondistended, positive bowel sounds Extremities: no cyanosis or clubbing; trace edema Skin: warm and dry Objectiv
--- NOTE | 2023-02-02 12:05 | PM.PNNEP ---
Progress Note: A&P Assessment and Plan (1) DESIREE (acute kidney injury): Code(s): N17.9 - Acute kidney failure, unspecified Status: Acute Assessment and Plan: creatinine a bit higher probably due to need for diuretics/diuresis however, still suspect an element of progression of disease rather than DESIREE recent hospitalization at [facility] (Jan 2023) creatinine was 2.8mg/dl on admission was being aggressively diuresed at that time creatinine on discharge (01/18/23) was 2.49mg/dl presumably she needs a higher creatinine to maintain volume status (?) (2) Stage 3b chronic kidney disease: Code(s): N18.32 - Chronic kidney disease, stage 3b Status: Chronic Assessment and Plan: baseline creatinine in 2021 was 1.5 - 1.7mg/dl presumably due to HTN, DM, vascular disease, and smoking component of disease progression present (?) -- see #1 (3) Anemia: Code(s): D64.9 - Anemia, unspecified Status: Chronic Assessment and Plan: likely due to CKD and possibly worsened by recent hospitalization a few weeks ago (i.e. frequent blood draws/phlebotomy...etc) adequate iron stores by anemia studies just recent dosed with ELIUD s/p PRBC transfusion follow trend of H/H (4) Acute exacerbation of CHF (congestive heart failure): Code(s): I50.9 - Heart failure, unspecified Status: Acute Assessment and Plan: recent hospitalization at [facility] for the same was on lasix gtt to promote diuresis during that stay CXR results (pulmonary edema) and exam (LE edema) noted on admission; however, no evidence of hypoxia based on previous Echo, suspect acute and of chronic diastolic CHF exacerbation transitioned to oral lasix; follow CXR follow I/Os and daily weights as well as renal function (5) Hyponatremia: Code(s): E87.1 - Hypo-osmolality and hyponatremia Status: Acute Assessment and Plan: acute on chronic runs anywhere from 126 - 135mmol/L presumably due in part from hypervolemia along with underlying CKD as well as fluctuating blod sugar control some improvement noted with IV diuresis add fluid restriction follow trend (6) Hypertension: Code(s): I10 - Essential (primary) hypertension Status: Chronic Assessment and Plan: suboptimal control follow trend with diuresis amlodipine added Cardiology consulted per 's request for further management apparently was on amlodipine before was discontinued due issues with LE edema follow trend of hemodynamics (7) Diabetes: Code(s): E11.9 - Type 2 diabetes mellitus without complications Status: Chronic Assessment and Plan: follow accuchecks glycemic control per hospitalists Will continue to follow. Subjective Date/time seen: 02/02/23 12:05 Appears to be doing reasonably well; no complaints of shortness of breath and lower extremity edema seems to have improved/resolved at this time; tolerating oral diuretic therapy and renal function relatively stable; H/H relatively stable since PRBC transfusion as well; no other issues/events overnight or earlier this AM. Exam Narrative: General: WD/WN female in NAD Heart: normal S1 and S2; no rub Lungs: decreased at bases Abdomen: soft, nontender, nondistended, positive bowel sounds Extremities: no cyanosis or clubbing; trace edema Skin: warm and dry Objective Data Vital Signs Vital Signs: Vital Signs Temp Pulse Resp BP Pulse Ox O2 Del Method 02/02/23 09:18 103 H 02/02/23 06:00 96.3 F L 69 16 170/73 H 95 02/01/23 20:00 80 17 98 Room Air 02/01/23 21:44 96.7 F L 73 16 177/63 H 99 Intake/Output Intake/Output: Intake & Output 01/30/23 01/31/23 02/01/23 02/02/23 23:59 23:59 23:59 23:59 Intake Total 350 2200 1040 610 Output Total 3300 1200 600 Balance 350 -1100 -160 10 Meds/Results Medications:
[2023-02-02 12:25] LABS: Glucose Point of Care 316 mg/dl (65-105)
[2023-02-02 17:07] LABS: Glucose Point of Care 205 mg/dl (65-105)
[2023-02-02] MEDS: ATORVASTATIN 40 MG TABLET PO (18:02)
[2023-02-02] MEDS: valACYclovir HCL 500 MG TABLET PO (18:03)
[2023-02-02 21:53] LABS: Glucose Point of Care 196 mg/dl (65-105)
[2023-02-03 04:14] LABS: IFOB Positive Control Positive; Immunochemical Fecal Occult Bl Negative (N)
[2023-02-03 04:15] LABS: Glucose Point of Care 109 mg/dl (65-105)
[2023-02-03 04:15] LABS: Glucose Point of Care 57 mg/dl (65-105)
[2023-02-03 05:48] LABS: Hematocrit 30.5 % (37.0-47.0); Mean Corpuscular HGB Conc 32.8 g/dl (32-36); Mean Corpuscular Hemoglobin 31.8 pg (26-34); Mean Corpuscular Volume 97.1 fl (80-100); Mean Platelet Volume 10.6 fl (7.4-10.4); Platelet Count Result 257 k/mm3 (150-375); Red Blood Count 3.14 M/mm3 (4.2-5.4); White Blood Count 6.2 K/mm3 (4.5-10.0)
[2023-02-03 05:59] LABS: Albumin Level 2.7 g/dL (3.5-5.1); Anion Gap 5 mmol/L (8-16); Blood Urea Nitrogen 66 mg/dL (7-17); Calcium 7.4 mg/dL (8.4-10.2); Carbon Dioxide 28 mmol/L (22-30); Chloride 96 mmol/L (98-107); Estimated CRCL calculation 18 ml/min; Estimated Glomerular Filt Rate 19; Glucose 111 mg/dL (65-110); Magnesium 1.8 mg/dL (1.6-2.3); Phosphorus 3.5 mg/dL (2.5-4.5); Potassium 3.1 mmol/L (3.4-5.0); Sodium 129 mmol/L (137-145)
[2023-02-03 06:00] VITALS: BP 157/70; PULSE 64; RESP 18; TEMP 36.7; O2SAT 99
[2023-02-03 08:30] LABS: Glucose Point of Care 313 mg/dl (65-105)
[2023-02-03] MEDS: INSULIN ASPART (*BKC) 100 UNITS/ML SUB-Q ×4 (08:41→12:39)
[2023-02-03] MEDS: POTASSIUM CHLORIDE 20 MEQ PACKET (FOR LIQUID) PO (08:58)
[2023-02-03 08:59] VITALS: PULSE 72
[2023-02-03] MEDS: carvediloL 25 MG TABLET PO (08:59)
[2023-02-03] MEDS: PANTOPRAZOLE 40 MG TABLET PO (09:00)
[2023-02-03] MEDS: ASPIRIN 81 MG ENTERIC TABLET PO (09:00)
[2023-02-03] MEDS: FLUoxetine HCL 20 MG CAPSULE 60 MG PO (09:00)
[2023-02-03] MEDS: ASCORBIC ACID 500 MG TABLET 1000 MG PO (09:00)
[2023-02-03] MEDS: FUROSEMIDE 40 MG TABLET PO (09:00)
[2023-02-03] MEDS: HYDROXYCHLOROQUINE SULFATE 200 MG TABLET PO (09:01)
[2023-02-03] MEDS: CHOLECALCIFEROL 1,000 UNITS TABLET 2000 UNITS PO (09:01)
[2023-02-03] MEDS: amLODIPine BESYLATE 2.5 MG TABLET PO (09:01)
[2023-02-03] MEDS: hydrALAZINE HCL 50 MG TABLET 100 MG PO ×2 (09:01→12:43)
--- NOTE | 2023-02-03 10:44 | P.PNNP_ITS ---
Progress Note: A&P Assessment and Plan (1) DESIREE (acute kidney injury): Code(s): N17.9 - Acute kidney failure, unspecified Status: Acute Assessment and Plan: * creatinine a bit higher probably due to need for diuretics/diuresis * however, still suspect an element of progression of disease rather than DESIREE * recent hospitalization at [facility] (Jan 2023) * creatinine was 2.8mg/dl on admission * was being aggressively diuresed at that time * creatinine on discharge (01/18/23) was 2.49mg/dl * presumably she needs a higher creatinine to maintain volume status (2) Stage 3b chronic kidney disease: Code(s): N18.32 - Chronic kidney disease, stage 3b Status: Chronic Assessment and Plan: * baseline creatinine in 2021 was 1.5 - 1.7mg/dl * presumably due to HTN, DM, vascular disease, and smoking * component of disease progression present (?) -- see #1 (3) Anemia: Code(s): D64.9 - Anemia, unspecified Status: Chronic Assessment and Plan: * doing better * likely due to CKD and possibly worsened by recent hospitalization a few weeks ago (i.e. frequent blood draws/phlebotomy...etc) * adequate iron stores by anemia studies * just recently dosed with ELIUD * s/p PRBC transfusion * follow trend of H/H (4) Acute exacerbation of CHF (congestive heart failure): Code(s): I50.9 - Heart failure, unspecified Status: Acute Assessment and Plan: * recent hospitalization at [facility] for the same * was on lasix gtt to promote diuresis during that stay * CXR results (pulmonary edema) and exam (LE edema) noted on admission; however, no evidence of hypoxia * based on previous Echo, suspect acute and of chronic diastolic CHF exacerbation * transitioned to oral lasix; follow CXR * follow I/Os and daily weights as well as renal function (5) Hyponatremia: Code(s): E87.1 - Hypo-osmolality and hyponatremia Status: Acute Assessment and Plan: * acute on chronic * runs anywhere from 126 - 135mmol/L * presumably due in part from hypervolemia along with underlying CKD as well as fluctuating blod sugar control * some improvement noted with diuresis * added fluid restriction * follow trend (6) Hypertension: Code(s): I10 - Essential (primary) hypertension Status: Chronic Assessment and Plan: * suboptimal control * follow trend with diuresis * amlodipine added * Cardiology consulted per 's request for further management * apparently was on amlodipine before but was discontinued due issues with LE edema * follow trend of hemodynamics (7) Diabetes: Code(s): E11.9 - Type 2 diabetes mellitus without complications Status: Chronic Assessment and Plan: * follow accuchecks * glycemic control per hospitalists Will continue to follow. Subjective Date/time seen: 02/03/23 10:44 No apparent distress noted at this time; breathing and lower extremity edema seem stable; renal function has been stable as well; H/H holding steady if not improvement since admission with subsequent PRBC transfusion. Exam Narrative: General: WD/WN female in NAD Heart: normal S1 and S2; no rub Lungs: decreased at bases Abdomen: soft, nontender, nondistended, positive bowel sounds Extremities: no cyanosis or clubbing; trace edema Skin: warm and intact Objective Data Vital Signs Vital Signs:
--- NOTE | 2023-02-03 10:44 | PM.PNNEP ---
Progress Note: A&P Assessment and Plan (1) DESIREE (acute kidney injury): Code(s): N17.9 - Acute kidney failure, unspecified Status: Acute Assessment and Plan: creatinine a bit higher probably due to need for diuretics/diuresis however, still suspect an element of progression of disease rather than DESIREE recent hospitalization at [facility] (Jan 2023) creatinine was 2.8mg/dl on admission was being aggressively diuresed at that time creatinine on discharge (01/18/23) was 2.49mg/dl presumably she needs a higher creatinine to maintain volume status (2) Stage 3b chronic kidney disease: Code(s): N18.32 - Chronic kidney disease, stage 3b Status: Chronic Assessment and Plan: baseline creatinine in 2021 was 1.5 - 1.7mg/dl presumably due to HTN, DM, vascular disease, and smoking component of disease progression present (?) -- see #1 (3) Anemia: Code(s): D64.9 - Anemia, unspecified Status: Chronic Assessment and Plan: doing better likely due to CKD and possibly worsened by recent hospitalization a few weeks ago (i.e. frequent blood draws/phlebotomy...etc) adequate iron stores by anemia studies just recently dosed with ELIUD s/p PRBC transfusion follow trend of H/H (4) Acute exacerbation of CHF (congestive heart failure): Code(s): I50.9 - Heart failure, unspecified Status: Acute Assessment and Plan: recent hospitalization at [facility] for the same was on lasix gtt to promote diuresis during that stay CXR results (pulmonary edema) and exam (LE edema) noted on admission; however, no evidence of hypoxia based on previous Echo, suspect acute and of chronic diastolic CHF exacerbation transitioned to oral lasix; follow CXR follow I/Os and daily weights as well as renal function (5) Hyponatremia: Code(s): E87.1 - Hypo-osmolality and hyponatremia Status: Acute Assessment and Plan: acute on chronic runs anywhere from 126 - 135mmol/L presumably due in part from hypervolemia along with underlying CKD as well as fluctuating blod sugar control some improvement noted with diuresis added fluid restriction follow trend (6) Hypertension: Code(s): I10 - Essential (primary) hypertension Status: Chronic Assessment and Plan: suboptimal control follow trend with diuresis amlodipine added Cardiology consulted per 's request for further management apparently was on amlodipine before but was discontinued due issues with LE edema follow trend of hemodynamics (7) Diabetes: Code(s): E11.9 - Type 2 diabetes mellitus without complications Status: Chronic Assessment and Plan: follow accuchecks glycemic control per hospitalists Will continue to follow. Subjective Date/time seen: 02/03/23 10:44 No apparent distress noted at this time; breathing and lower extremity edema seem stable; renal function has been stable as well; H/H holding steady if not improvement since admission with subsequent PRBC transfusion. Exam Narrative: General: WD/WN female in NAD Heart: normal S1 and S2; no rub Lungs: decreased at bases Abdomen: soft, nontender, nondistended, positive bowel sounds Extremities: no cyanosis or clubbing; trace edema Skin: warm and intact Objective Data Vital Signs Vital Signs: Vital Signs Temp Pulse Resp BP Pulse Ox O2 Del Method 02/03/23 08:59 72 02/03/23 06:00 98.0 F 64 18 157/70 H 99 02/02/23 20:10 98 Room Air 02/02/23 22:00 97.9 F 69 22 H 169/73 H 100 02/02/23 20:00 64 20 98 Room Air 02/02/23 14:00 96.8 F L 64 20 141/66 H 98 Intake/Output Intake/Output: Intake & Output 01/31/23 02/01/23 02/02/23 02/03/23 23:59 23:59 23:59 23:59 Intake Total 2200 1040 1210 480 Output Total 3300 1200 1400 600 Balance -1100 -160 -190 -120 Meds/Results Medications:
[2023-02-03] MEDS: ISOSORBIDE MONONITRATE 30 MG TAB.ER.24H PO (10:45)
[2023-02-03] MEDS: DIPHENOXYLATE/ATROPINE (*CRX) 2.5 MG TABLET PO (10:45)
[2023-02-03] MEDS: FAMOTIDINE 20 MG TABLET PO (10:45)
[2023-02-03] MEDS: INSULIN GLARGINE (*BKC) 100 UNITS/ML 10 UNITS SUB-Q (10:46)
--- NOTE | 2023-02-03 12:18 | PM.DS ---
DS: Admitting Diagnosis Discharge Date 02/03/23 Admitting Diagnosis Abnormal labs DS: Discharge Diagnosis Discharge Diagnosis (1) Acute exacerbation of CHF (congestive heart failure): Code(s): I50.9 - Heart failure, unspecified Status: Acute (2) Acute renal failure superimposed on stage 3 chronic kidney disease: Code(s): N17.9 - Acute kidney failure, unspecified; N18.30 - Chronic kidney disease, stage 3 unspecified Status: Acute (3) Anemia: Code(s): D64.9 - Anemia, unspecified Status: Chronic (4) Acute hyponatremia: Code(s): E87.1 - Hypo-osmolality and hyponatremia Status: Resolved (5) Diabetes: Code(s): E11.9 - Type 2 diabetes mellitus without complications Status: Chronic (6) CAD (coronary artery disease): Code(s): I25.10 - Atherosclerotic heart disease of [place] coronary artery without angina pectoris Status: Acute (7) Hypertension: Code(s): I10 - Essential (primary) hypertension Status: Chronic (8) PAD (peripheral artery disease): Code(s): I73.9 - Peripheral vascular disease, unspecified Status: Acute (9) Rheumatoid arthritis: Code(s): M06.9 - Rheumatoid arthritis, unspecified Status: Chronic (10) Breast mass: Code(s): N63.0 - Unspecified lump in unspecified breast Status: Acute (11) Tobacco abuse: Code(s): Z72.0 - Tobacco use Status: Chronic DS: Summary Hospital Course Reason for hospitalization: 62yo with CAD, PAD, DM, CKD and RA here for low Hgb. Please see H&P for details Hospital Course: Patient was noted to be anemic by outside labs. Hgb was 6.8 by outside labs but 7.7 here in the ED. Most likely acute worsening of chronic anemia related to her underlying renal disease. Iron studies noted and more consistent with anemia of chronic disease from her CKD. B12/Folate normal in August. Stool guaiac negative. She did receive a transfusion of 1U PRBC. Hgb climbed to the 9-10 range and thus far has remained stable. CXR was consistent with pulmonary edema. Not on O2. Lasix IV was started. Leg edema noted and now resolved. Echo in December with EF 60-65% and diastolic dysfunction. Most likely acute and of chronic diastolic CHF exacerbation. Cr here was 2.4 but climbed to 2.6. She was changed back to oral Lasix. Cr stable at 2.6. LE dopplers negative for DVT.?Cr last year in August was 1.5-1.8 range. Renal US showing no acute findings. Cr was 2.5 on 01/18/23 so suspected she is within her baseline. Nephrology followed along. Patient has chronic hyponatremia with Na mostly 129-135 range. Na 128 on admission most likely related to hypervolemia secondary to CHF. She was started on IV diuretics but Na still in the 128-131 range. A1c7.1. The patient's blood glucose was monitored with AccuCheks covering with sliding scale.? Hypoglycemia protocol was available as needed.?Patient's blood pressure was monitored and noted to be elevated. Spoke with who said that patient was on Norvasc but taken off of this due to leg edema. He requests Cardiology to manage her HTN. Dr Solo consulted and Hipolito added. Appreciate Cardiology input. said the patient has a left breast mass. Mammogram report is available from 12/20/2022 which showed no masses, asymmetries, suspicious calcifications or architectural distortions.? Spoke with who felt this was new. Spoke with radiology who recommended outpatient breast US. Patient independent with bed mobility and able to get up to the chair. She does require walker when walking to the bathroom. She worked with PT and was standby assist. Patient overall did well and was able to be discharged home on 02/03/23. Home health set up. Discharge instructions discussed. Status at Discharge Cognitive/behavioral status at discharge: Stable Time Spent with Patient Time attestation: Total time spent providing and/or coordinating discharge services: 35 minutes
[2023-02-03 12:29] LABS: Glucose Point of Care 298 mg/dl (65-105)
--- NOTE | 2023-02-03 13:03 | PM.CNCAR ---
Assessment and Plan Assessment and plan (1) Diastolic dysfunction: Code(s): I51.89 - Other ill-defined heart diseases Status: Acute Assessment and Plan: Appears euvolemic. Edema of legs resolved, could have been due to side effect of Amlodipine. (2) CAD (coronary artery disease): Code(s): I25.10 - Atherosclerotic heart disease of [place] coronary artery without angina pectoris Status: Acute Assessment and Plan: Stable. (3) PAD (peripheral artery disease): Code(s): I73.9 - Peripheral vascular disease, unspecified Status: Acute Assessment and Plan: Stable. (4) HLD (hyperlipidemia): Code(s): E78.5 - Hyperlipidemia, unspecified Status: Acute (5) Tobacco abuse: Code(s): Z72.0 - Tobacco use Status: Chronic Assessment and Plan: Counseled regarding smoking cessation. (6) Anemia: Code(s): D64.9 - Anemia, unspecified Status: Chronic Assessment and Plan: PRBC transfusion with Hb now at 10.0. (7) Hypertension: Code(s): I10 - Essential (primary) hypertension Status: Chronic Assessment and Plan: She reports white coat syndrome also. Agree with starting Isosorbide mononitrate 30 mg daily. On Coreg 25 mg BID and Hydralazine 100 mg TID, low dose Amlodipine 2.5 mg daily. Avoid higher dose of Amlodipine due to edema. History of Present Illness History of Present Illness Consult date/time: 02/03/23 13:03 Reason For Visit: Anemia, DESIREE, hyponatremia Narrative: 62 yr old woman who is my regular cardiology patient and a patient of Dr. Ryan presents for a follow up visit regarding her cardiovascular status. She has a history of CAD with VA and 2 stents in 2017, PAD with 3 stents in left femoral artery, DM, hypertension, dyslipidemia, anxiety. Prior care analyst is Dr. Carrillo. She was admitted on 01/30/23 for acute anemia and sob. Reports no chest pain or sob. Her edema of legs resolved. She reports GUTIERRES walking short distance and may be able to go a block with her walker due to balance issues.? She smokes 1.5 ppd down from 2.5 ppd. She has moderate edema of both legs but resolved after stopping Amlodipine. Denies orthopnea, PND, chest pain, palpitations. Cardiovascular Procedures Director Of Academic:: 07/30/[address] [place] [address] Carrillo [facility]: 2nd Diag mid 90% stenosis, LCx distal 60%, 1st OM prox 80% and then sequential 60-70% stenosis, RCA prox 70-80% stenosis; PTCA of 2nd Diag and PCI with stent to OM1. 12/06/19 [place] angiogram shows severe PAD of left leg and will need laser atherectomy and angioplasty with possible stenting. Echo/MUGA:: 12/24/22 Echo: EF 60-65%, mild LVH, diastolic dysfunction (E/e' 20), mild LAE, trace MR/TR. Electrophysiology:: 11/14/22 EKG: Sinus rhtyhm, IRBBB, LAFB, borderline ST-T wave in high lateral leads. 06/21/22 EKG: Sinus rhythm, PAC, IRBBB, LAFB, borderline ST-T wave in inf/lat leads. Review of Systems Review of Systems: All systems reviewed & are unremarkable except as noted in HPI and below Constitutional: Constitutional: Reports as per HPI, Denies chills and Denies fever(s) Cardiovascular: Cardiovascular: Reports as per HPI, Denies chest pain and Denies irregular heart rhythm Respiratory: Respiratory: Reports as per HPI and Reports dyspnea Gastrointestinal: Gastrointestinal: Reports as per HPI and Denies abdominal pain Genitourinary: Genitourinary: Reports as per HPI and Denies urinary frequency Musculoskeletal: Musculoskeletal: Reports as per HPI Neurologic: Reports as per HPI, Denies dizziness and Denies syncope PMFSH Past Medical History Medical History Anxiety and depression Breast implant capsular contracture CAD (coronary artery disease) Chronic renal failure Diabetes Essential hypertension GERD (gastroesophageal reflux disease) History of rectal or anal cancer chemo , radiation HLD (hyperlipidemia) Hypertension Nausea and vomiting O
[2023-02-03 14:00] VITALS: BP 166/71; PULSE 72; RESP 18; TEMP 36.2; O2SAT 98
[2023-02-03 14:22] LABS: Osmolality, Urine 389 mOsm/kg (50-1200)
--- NOTE | 2023-02-03 14:50 | PCPTNOTE ---
The patient treatment was not able to be completed at this time due to patient having test at bedside. Will plan to continue treatment per plan of care.
== END 2023-02-03 17:13 | disposition home health service (06) ==
LOC: ANHED 22:49 → ANH3MED 23:16
PROVIDERS: Admitting Provider Internal Medicine; Emergency Provider Emergency Medicine; PCP Internal Medicine; Visit Provider Internal Medicine
DX: I13.0 Hypertensive heart and chronic kidney disease with heart failure and stage 1 through stage 4 chronic kidney disease, or unspecified chronic kidney disease (principal); I50.9 Heart failure, unspecified; E11.22 Type 2 diabetes mellitus with diabetic chronic kidney disease; N18.32 Chronic kidney disease, stage 3b; D63.1 Anemia in chronic kidney disease; N17.9 Acute kidney failure, unspecified; E87.1 Hypo-osmolality and hyponatremia; I25.10 Atherosclerotic heart disease of native coronary artery without angina pectoris; I73.9 Peripheral vascular disease, unspecified; M06.9 Rheumatoid arthritis, unspecified; N63.0 Unspecified lump in unspecified breast; E78.5 Hyperlipidemia, unspecified; F41.9 Anxiety disorder, unspecified; F32.A Depression, unspecified; K21.9 Gastro-esophageal reflux disease without esophagitis; R94.31 Abnormal electrocardiogram [ECG] [EKG]; M79.89 Other specified soft tissue disorders; I25.2 Old myocardial infarction; R19.7 Diarrhea, unspecified; Z96.0 Presence of urogenital implants; F17.210 Nicotine dependence, cigarettes, uncomplicated; Z85.048 Personal history of other malignant neoplasm of rectum, rectosigmoid junction, and anus; Z79.4 Long term (current) use of insulin; Z79.82 Long term (current) use of aspirin; Z79.899 Other long term (current) drug therapy
CPT/HCPCS: 36415; 36430; 71045; 71046; 76775; 80053; 80069; 81001; 81002; 81050; 82274; 82550; 82570; 82728; 82948; 83036; 83540; 83550; 83735; 83935; 84133; 84156; 84300; 84439; 84443; 84480; 84484; 85014; 85018; 85025; 85027; 85652; 86850; 86900; 86901; 86923; 93005; 93970; 96374; 96375; 96376; 97161; 97165; 97530; 99285; A9270; G0378; G0379; J0360; J1815; J1940; J7050; P9016

== ENCOUNTER 2023-04-11 15:21 | Outpatient (CLI) | payer OTHER, SELFPAY ==
[2023-04-22 20:55] LABS: Calprotectin, Stool 310 mcg/g
== END 2023-04-11 15:22 | disposition home or self-care (01) ==
LOC: ANHLAB 15:22
PROVIDERS: PCP Internal Medicine; Visit Provider Nurse Practitioner Family
DX: K52.9 Noninfective gastroenteritis and colitis, unspecified (principal)
CPT/HCPCS: 83993; 87045; 87177; 87209; 87269; 87427; 87493

== ENCOUNTER 2023-05-21 01:57 | Day surgery (SDC) | payer OTHER, SELFPAY ==
[2023-05-13 11:27] VITALS: BMI 18.1
[2023-05-21 09:05] VITALS: BP 162/71; PULSE 63; RESP 18; TEMP 36.2; O2SAT 99
--- NOTE | 2023-05-21 09:15 | WPDANESEPPF ---
Anes - Initial Pre Proc Eval Procedure: Operation Date: 05/21/23 11:00 Proposed Procedures p Flexible Sigmoidoscopy - Jeffrey Moreno MD Date/Time: 05/21/23 09:15 Surgeon: Jeffrey Moreno MD Pre Op Diagnosis: other fecal abnormalities,hxmaglient neoplasm anus Patient Data Age: 62 Gender: F Height: 1.68 m Weight: 53.1 kg Last Vital Signs Temp 97.2 F L 05/21/23 09:05 Pulse 63 05/21/23 09:05 Resp 18 05/21/23 09:05 BP 162/71 H 05/21/23 09:05 Pulse Ox 99 05/21/23 09:05 O2 Del Method Room Air 05/21/23 09:05 Allergies Allergy/AdvReac Type Severity Reaction Status Date / Time Penicillins AdvReac Intermediate hives Verified 05/21/23 09:04 Home Medications Medication Instructions Recorded Confirmed Type aspirin 81 mg tablet,delayed 81 mg PO DAILY 04/19/22 05/13/23 History release hydroxychloroquine 200 mg tablet 200 mg PO QAM 04/19/22 05/13/23 History valacyclovir 500 mg tablet 500 mg PO QPM 06/28/22 05/13/23 History insulin lispro 100 unit/mL 1 - 5 units subcut TID.ARISSI #10 07/04/22 05/13/23 Rx subcutaneous solution (Humalog mL U-100 Insulin) insulin lispro 100 unit/mL 4 units (0.04 mL) subcut TIDWM 10 07/04/22 05/13/23 Rx subcutaneous solution (Humalog days #1.2 mL U-100 Insulin) diphenoxylate-atropine 2.5 See Rx Instructions PO .COMPLEX 11/14/22 05/13/23 History mg-0.025 mg tablet PRN Diarrhea ondansetron HCl 8 mg tablet 8 mg PO Q8H PRN nausea and 12/24/22 05/13/23 Rx vomiting #60 tabs ascorbic acid (vitamin C) 1,000 mg 1 g PO DAILY 01/22/23 05/13/23 History capsule carvedilol 25 mg tablet 25 mg PO Q12H #180 tabs 01/22/23 05/13/23 Rx cholecalciferol (vitamin D3) 50 50 mcg PO DAILY 01/22/23 05/13/23 History mcg (2,000 unit) capsule fluoxetine 60 mg tablet 60 mg PO QAM 01/22/23 05/13/23 History pantoprazole 40 mg tablet,delayed 40 mg PO BID 01/22/23 05/13/23 History release furosemide 40 mg tablet 40 mg PO DAILY #30 tabs 02/26/23 05/13/23 Rx tramadol 50 mg tablet 50 mg PO Q6H PRN Pain 02/26/23 05/13/23 History zinc gluconate 30 mg tablet 30 mg PO DAILY 02/26/23 05/13/23 History potassium chloride 10 mEq 10 meq PO BID #180 caps 03/14/23 05/13/23 Rx capsule,extended release isosorbide mononitrate 60 mg 60 mg PO DAILY #90 tabs 03/31/23 05/13/23 Rx tablet,extended release 24 hr metoclopramide HCl 5 mg tablet 5 mg PO DAILY 04/02/23 05/13/23 History clonidine HCl 0.3 mg tablet 0.3 mg PO BID #180 tabs 04/09/23 05/13/23 Rx Lactobacillus 1 cap PO DAILY 05/13/23 05/13/23 History acidophilus-Bifidobac.animalis 2.5 billion cell capsule (Daily Probiotic) Renafood 2 tablet PO BID 05/13/23 05/13/23 History Zinc Complex 1 tablet PO TID 05/13/23 05/13/23 History atorvastatin 40 mg tablet 40 mg PO DAILY 05/13/23 05/13/23 History chlorophyll copper complex 10 mg 20 mg PO BID 05/13/23 05/13/23 History tablet insulin detemir U-100 100 unit/mL 6 unit subcut QAM 05/13/23 05/13/23 History (3 mL) subcutaneous pen metolazone 2.5 mg tablet See Rx Instructions .Route 05/19/23 05/21/23 Rx .COMPLEX #90 tabs Patient hx anesthesia problems: none Family hx anesthesia problems: none Results Review: All pre-operative results and documents have been reviewed as part of the pre-operative evaluation. [facility] Past Medical History Medical History (Updated 05/02/23 @ 11:40 by Elda Carter, [employer]) Anxiety and depression Breast implant capsular contracture CAD (coronary artery disease) Chronic diarrhea Chronic renal failure Diabetes Elevated fecal calprotectin Essential hypertension Gastritis GERD (gastroesophageal reflux disease) History of rectal or anal cancer chemo , radiation HLD (hyperlipidemia) Hypertension Nausea and vomiting Old myocardial infarction, greater than 8 weeks stents PAD (peripheral artery disease) Periprosthetic fracture around internal prosthetic left hip joint, subsequent encounter Port-A-Cath in
--- NOTE | 2023-05-21 09:16 | SUR.PREOP ---
Parish to use dexfsboWOW for blood glucose reading per Dr Tafoya- Blood glucose 198 at 0910
[2023-05-21] MEDS: LACTATED RINGERS 1,000 ML 150 ML IV CONT (09:25)
--- NOTE | 2023-05-21 09:47 | WPDHPUPDATE1 ---
History and Physical Update Update Date/Time: 05/21/23 09:47 History and Physical has been reviewed, including an updated exam of the patient. There are NO changes in the patient's condition. Risks, benefits, and alternatives have been discussed and questions answered. Patient agrees to proceed with procedure.
[2023-05-21 10:04] VITALS: BP 174/81; PULSE 58; RESP 15; O2SAT 98
[2023-05-21 10:14] VITALS: BP 178/86; PULSE 58; RESP 16; O2SAT 97
[2023-05-21 10:24] VITALS: BP 181/91; PULSE 60; RESP 18; O2SAT 97
== END 2023-05-21 10:40 | disposition home or self-care (01) ==
PROVIDERS: PCP Internal Medicine; Visit Provider Internal Medicine Gastroenterology
PROC: 0DJD8ZZ Inspection of Lower Intestinal Tract, Via Natural or Artificial Opening Endoscopic (ICD-10-PCS; CPT 45330; principal; 2023-05-21 11:00)
DX: R19.7 Diarrhea, unspecified (principal); D12.2 Benign neoplasm of ascending colon; K57.30 Diverticulosis of large intestine without perforation or abscess without bleeding; Z85.048 Personal history of other malignant neoplasm of rectum, rectosigmoid junction, and anus; I12.9 Hypertensive chronic kidney disease with stage 1 through stage 4 chronic kidney disease, or unspecified chronic kidney disease; E11.22 Type 2 diabetes mellitus with diabetic chronic kidney disease; N18.9 Chronic kidney disease, unspecified; I25.10 Atherosclerotic heart disease of native coronary artery without angina pectoris; E78.5 Hyperlipidemia, unspecified; I25.2 Old myocardial infarction; F41.8 Other specified anxiety disorders; K21.9 Gastro-esophageal reflux disease without esophagitis; E11.51 Type 2 diabetes mellitus with diabetic peripheral angiopathy without gangrene; M06.9 Rheumatoid arthritis, unspecified; Z92.21 Personal history of antineoplastic chemotherapy; Z92.3 Personal history of irradiation; Z79.4 Long term (current) use of insulin; Z79.82 Long term (current) use of aspirin; Z95.5 Presence of coronary angioplasty implant and graft; F17.210 Nicotine dependence, cigarettes, uncomplicated; F12.90 Cannabis use, unspecified, uncomplicated
CPT/HCPCS: 45380; 45385; 88305; J2704; J7120

== ENCOUNTER 2023-08-23 22:26 | Emergency (ER) | payer OTHER, SELFPAY ==
--- NOTE | ~2023-08-23 | XR_ITS ---
XR chest 2V 08/23/2023 23:27 Indication: Shortness of breath and cough Procedure: AP view of the chest Comparison: 02/01/2023 Findings: Cardiomegaly with pulmonary edema development. Small pleural effusions. Interval placement of left subclavian large bore catheter, tip near the cavoatrial junction. Portacatheter tip near the cavoatrial junction. There is a coronary artery stent. No pneumothorax. Impression: 1: Cardiomegaly with interval development of pulmonary edema. Reviewed, dictated and finalized at location A. Impression: 1: Cardiomegaly with interval development of pulmonary edema.
[2023-08-23 22:39] VITALS: BP 182/81; PULSE 95; RESP 14; TEMP 37; O2SAT 96
[2023-08-23 22:48] LABS: Glucose Point of Care > 500 mg/dl (65-105)
[2023-08-23 22:55] LABS: Basophils Absolute Auto 0.1 K/mm3 (0.0-0.1); Basophils Percent Auto 0.7 % (0.2-1.2); Eosinophils Percent Auto 0.3 % (0-4.4); Hematocrit 23.7 % (37.0-47.0); Hemoglobin 7.3 g/dL (12.0-15.0); Immature Granulocyte Absolute 0.03 K/mm3 (0.00-0.031); Immature Granulocyte Percent A 0.4 % (0-0.5); Lymphocytes Absolute Auto 0.43 K/mm3 (0.9-3.2); Mean Corpuscular HGB Conc 30.8 g/dl (32-36); Mean Corpuscular Hemoglobin 34.4 pg (26-34); Mean Corpuscular Volume 111.8 fl (80-100); Mean Platelet Volume 11.1 fl (7.4-10.4); Monocytes Absolute Auto 1.2 K/mm3 (0.1-0.6); Monocytes Percent Auto 17.3 % (2.6-8.5); Neutrophils Absolute Auto 5.4 K/mm3 (1.3-6.7); Neutrophils Percent Auto 75.3 % (45.5-73.1); Platelet Count Result 222 k/mm3 (150-375); Red Blood Count 2.12 M/mm3 (4.2-5.4); Red Cell Distribution Width 21.5 % (11.5-14.5); White Blood Count 7.1 K/mm3 (4.5-10.0)
[2023-08-23 23:00] VITALS: BP 185/77; PULSE 95; RESP 14; O2SAT 96
[2023-08-23 23:05] LABS: Alanine Aminotransferase 66 U/L (6-35); Albumin Level 2.8 g/dL (3.5-5.1); Alkaline Phosphatase 195 U/L (38-126); Anion Gap 5 mmol/L (8-16); Aspartate Amino Transferase 59 U/L (14-36); Bilirubin,Total 0.5 mg/dL (0.2-1.3); Blood Urea Nitrogen 34 mg/dL (7-17); Calcium 7.7 mg/dL (8.4-10.2); Carbon Dioxide 28 mmol/L (22-30); Chloride 99 mmol/L (98-107); Estimated Glomerular Filt Rate 19; Glucose 496 mg/dL (65-110); Magnesium 1.9 mg/dL (1.6-2.3); Phosphorus 4.3 mg/dL (2.5-4.5); Potassium 4.5 mmol/L (3.4-5.0); Sodium 132 mmol/L (137-145)
[2023-08-23 23:08] LABS: Beta-Hydroxybutyrate/Acetoacetate 0.05 mmol/L (0.02-0.27)
--- NOTE | 2023-08-23 23:08 | ED.RECABL ---
HPI - Recheck/Abnormal Lab/Rx General Chief Complaint: Recheck/Abnormal Lab/Rx Stated Complaint: high blood sugar Time Seen by Provider: 08/23/23 22:44 History of Present Illness HPI narrative: Patient is a 63-year-old female with a history of type 1 diabetes, CKD on dialysis, anal cancer in remission, CAD presenting with hyperglycemia. Patient states that she is currently residing at a rehab facility. States that the nurses did not give her her insulin today. They checked her blood glucose tonight and it was in the 600s so they called EMS. States that she felt nauseated earlier but they gave her Zofran and she is starting to feel better. States that she is on temporary dialysis currently. She continues to make urine. She denies any complaints right now. Related Data Home Medications Medication Instructions Recorded Confirmed aspirin 81 mg tablet,delayed 81 mg PO DAILY 04/19/22 05/13/23 release hydroxychloroquine 200 mg tablet 200 mg PO QAM 04/19/22 05/13/23 diphenoxylate-atropine 2.5 See Rx Instructions PO .COMPLEX 11/14/22 05/13/23 mg-0.025 mg tablet PRN Diarrhea ascorbic acid (vitamin C) 1,000 mg 1 g PO DAILY 01/22/23 05/13/23 capsule cholecalciferol (vitamin D3) 50 50 mcg PO DAILY 01/22/23 05/13/23 mcg (2,000 unit) capsule fluoxetine 60 mg tablet 60 mg PO QAM 01/22/23 05/13/23 pantoprazole 40 mg tablet,delayed 40 mg PO BID 01/22/23 05/13/23 release tramadol 50 mg tablet 50 mg PO Q6H PRN Pain 02/26/23 05/13/23 zinc gluconate 30 mg tablet 30 mg PO DAILY 02/26/23 05/13/23 metoclopramide HCl 5 mg tablet 5 mg PO DAILY 04/02/23 05/13/23 Lactobacillus 1 cap PO DAILY 05/13/23 05/13/23 acidophilus-Bifidobac.animalis 2.5 billion cell capsule (Daily Probiotic) Renafood 2 tablet PO BID 05/13/23 05/13/23 Zinc Complex 1 tablet PO TID 05/13/23 05/13/23 atorvastatin 40 mg tablet 40 mg PO DAILY 05/13/23 05/13/23 chlorophyll copper complex 10 mg 20 mg PO BID 05/13/23 05/13/23 tablet insulin detemir U-100 100 unit/mL 6 unit subcut QAM 05/13/23 05/13/23 (3 mL) subcutaneous pen Allergies Allergy/AdvReac Type Severity Reaction Status Date / Time Penicillins AdvReac Intermediate hives Verified 05/21/23 09:04 Review of Systems Review of Systems: All systems reviewed & are unremarkable except as noted in HPI and below PMFSH Past Medical History Medical History Anxiety and depression Breast implant capsular contracture CAD (coronary artery disease) Chronic diarrhea Chronic renal failure Diabetes Elevated fecal calprotectin Essential hypertension Gastritis GERD (gastroesophageal reflux disease) History of rectal or anal cancer chemo , radiation HLD (hyperlipidemia) Hypertension Nausea and vomiting Old myocardial infarction, greater than 8 weeks stents PAD (peripheral artery disease) Periprosthetic fracture around internal prosthetic left hip joint, subsequent encounter Port-A-Cath in place Rheumatoid arthritis Tobacco abuse Surgical History Surgical History H/O heart artery stent H/O rotator cuff surgery History of cardiovascular surgery History of cryosurgery Family History Family History Father Old age Mother Alcohol abuse Other Diabetes mellitus Gout Social History Social History Social History: the patient continues to smoke cigarettes approximately 1 and half packs of cigarettes a day. The patient lives with her and has 2 children. The patient denies any alcohol but she does use THC oil. The patient is currently not working. She was working at [employer]. Her is the durable power finance attorney for healthcare. Code status full code Smoking packs per day: 1.5 Smoking cigarettes per day: 30.0 Years smoked: 40 S
[2023-08-23 23:18] LABS: Anisocytosis 2+ (NORMAL); Platelet Estimate Adequate (Adequate)
[2023-08-23 23:19] LABS: Hypochromasia 1+ (NORMAL); Schistocytes Rare (NORMAL)
[2023-08-23 23:44] LABS: Fractional Inspired Oxygen 32 %; HCO3 VBG 27.4 mEq/l (24.0-30.0); PCO2 VBG 47.3 mmHg (42.0-48.0); PO2 VBG 50.5 mmHg (35.0-45.0)
[2023-08-23 23:46] LABS: Device NASAL CANNULA
[2023-08-24] VITALS (8 sets, daily range): BP systolic 149–180; BP diastolic 73–99; PULSE 88–97; RESP 14–26; O2SAT 95–100
[2023-08-24] MEDS: INSULIN GLARGINE (*BKC) 100 UNITS/ML 6 UNITS SUB-Q (00:28)
[2023-08-24] MEDS: INSULIN ASPART (*BKC) 100 UNITS/ML SUB-Q (00:29)
[2023-08-24 00:30] LABS: Influenza A QL RT-PCR Negative (Negative); Influenza B QL RT-PCR Negative (Negative); SARS-CoV-2 RNA PCR Negative (Negative)
[2023-08-24 00:32] LABS: Glucose Point of Care 361 mg/dl (65-105)
--- NOTE | 2023-08-24 01:59 | PC.NURSE ---
pt. given 1L NS from EMS. erp okayed
[2023-08-24 02:08] LABS: Glucose Point of Care 266 mg/dl (65-105)
--- NOTE | 2023-08-24 02:28 | PC.NURSE ---
spoke w/ [facility] for pt. transport. ETA [id number]
--- NOTE | 2023-08-24 08:32 | PC.NURSE ---
Nurse report called to [facility]
== END 2023-08-24 09:07 ==
PROVIDERS: Emergency Provider Emergency Medicine; PCP Internal Medicine
DX: E10.65 Type 1 diabetes mellitus with hyperglycemia (principal); Z20.822 Contact with and (suspected) exposure to COVID-19; I25.10 Atherosclerotic heart disease of native coronary artery without angina pectoris; E10.22 Type 1 diabetes mellitus with diabetic chronic kidney disease; I12.0 Hypertensive chronic kidney disease with stage 5 chronic kidney disease or end stage renal disease; N18.6 End stage renal disease; T38.3X6A Underdosing of insulin and oral hypoglycemic [antidiabetic] drugs, initial encounter; Z91.A4 Caregiver's other noncompliance with patient's medication regimen; E10.51 Type 1 diabetes mellitus with diabetic peripheral angiopathy without gangrene; I73.9 Peripheral vascular disease, unspecified; E78.5 Hyperlipidemia, unspecified; I25.2 Old myocardial infarction; M06.9 Rheumatoid arthritis, unspecified; K21.9 Gastro-esophageal reflux disease without esophagitis; D64.9 Anemia, unspecified; F41.9 Anxiety disorder, unspecified; F32.A Depression, unspecified; Z99.2 Dependence on renal dialysis; F17.200 Nicotine dependence, unspecified, uncomplicated; Z95.5 Presence of coronary angioplasty implant and graft; Z92.3 Personal history of irradiation; Z85.048 Personal history of other malignant neoplasm of rectum, rectosigmoid junction, and anus; Z92.21 Personal history of antineoplastic chemotherapy; Z79.82 Long term (current) use of aspirin; Z79.4 Long term (current) use of insulin
CPT/HCPCS: 36415; 71046; 80053; 82010; 82803; 82948; 83735; 84100; 85025; 87636; 99283; J1815